=== PATIENT | female | born 1945 | race Caucasian/White ===

== ENCOUNTER → 2016-03-11 | Outpatient (CLI) | payer MEDICARE, OTHER ==
--- NOTE | 2016-03-21 10:38 | SLEEPCENT ---
DATE OF STUDY: 03/12/2016 REFERRING PROVIDER: Dr. Richmond. INTERPRETATION: Nocturnal polysomnography was performed for evaluation of sleep apnea syndrome symptoms consisting of excessive daytime sleepiness, impaired cognition, insomnia, snoring, and observed apneas. She also has the comorbidity of hypertension. A total of 7 hours and 46 minutes of data was reviewed with 235 minutes of sleep identified. Sleep latency was prolonged at 60.5 minutes. Rapid eye movement (REM) latency was 154.5 minutes. No slow-wave sleep was identified. Sleep efficiency was decreased at 51.2%. Electrocardiogram (EKG) showed normal sinus rhythm with an average heart rate of 84 beats per minute. Speeding and slowing was noted surrounding some respiratory events. There were 155 respiratory events of 10 seconds in duration or longer for an apnea-hypopnea index (AHI) of 39.6. The events were predominantly obstructive apneas/hypopneas. There were several unscored events which would put this index slightly higher. Respiratory effort-related arousal (RERA) index was 1.8, giving a total respiratory disturbance index (RDI) of 41.4. Mean oxygen saturation for the study was 91% with a minimum recorded value of 76%. Arousal index was 20.4, with the majority of arousals breathing-related. Periodic limb movement index was 17.9. IMPRESSION: 1. Obstructive sleep apnea, severe. 2. Periodic limb movements, mild. RECOMMENDATIONS: Recommend returning to the sleep disorder center for determination of pressure therapy. Pending that intervention, alcohol and sedative usage should be avoided, and care should be taken when operating motor vehicles.
== END ==
LOC: M SLEEP 19:45
PROVIDERS: ATTEND Internal Medicine Pulmonary Disease
DX: G47.33 Obstructive sleep apnea (adult) (pediatric) (principal); G47.61 Periodic limb movement disorder

== ENCOUNTER → 2016-05-05 | Outpatient (CLI) | payer MEDICARE, OTHER | LOC: M SLEEP 20:15 | PROVIDERS: ATTEND Internal Medicine Pulmonary Disease | DX: G47.33 Obstructive sleep apnea (adult) (pediatric) (principal) ==

== ENCOUNTER 2016-12-14 06:45 | Outpatient (CLI) | payer OTHER ==
[~2016-12-14] VITALS: Ht 154.9 cm; Wt 87.3 kg
[~2016-12-14 06:45] MED LIST: ADVA115A INH; ALBU17IN INH; ATOR1TAB21 PO; AZEL0.055; FLUT1SPR2; FURO20TA2 PO; IRBE150T12 PO; LEXA5TAB13 PO; OMEP40CA2 PO; PANT40TA2 PO; TYLE500T78 PO; VITA100067 PO
[2016-12-14] MEDS ORDERED: NS 1,000 ML IV ONE (07:45)
[2016-12-14] MEDS ORDERED: PROPOFOL 200 MG/20 ML VIAL As Ordered ONE (08:40)
[2016-12-14] MEDS ORDERED: LIDOCAINE 2% INJ 100 MG/5 ML SDV (FOR ANES.) As Ordered ONE (08:40)
--- NOTE | 2016-12-14 08:41 | ROOR ---
Patient Name: Monisha Pereira Procedure Date: 12/14/2016 8:06 AM Date of : 1945 Age: 71 Room: [facility] Gender: Female Note Status: Finalized Procedure: Upper GI endoscopy Indications: Follow-up of esophageal reflux, Exclusion of Lee's esophagus Providers: Curly Zavala MD Referring MD: Mehran Richmond MD Requesting Provider: Medicines: Monitored Anesthesia Care Complications: No immediate complications. Procedure: Pre-Anesthesia Assessment: - Prior to the procedure, a History and Physical was performed, and patient medications and allergies were reviewed. The patient is competent. The risks and benefits of the procedure and the sedation options and risks were discussed with the patient. All questions were answered and informed consent was obtained. Patient identification and proposed procedure were verified by the physician, the nurse and the motor builder assembler in the procedure room. Mental Status Examination: alert and oriented. Airway Examination: normal oropharyngeal airway and neck mobility. Respiratory Examination: clear to auscultation. CV Examination: normal. Prophylactic Antibiotics: The patient does not require prophylactic antibiotics. Prior Anticoagulants: The patient has taken no previous anticoagulant or antiplatelet agents. ASA Grade Assessment: III - A patient with severe systemic disease. After reviewing the risks and benefits, the patient was deemed in satisfactory condition to undergo the procedure. The anesthesia plan was to use monitored anesthesia care (MAC). Immediately prior to administration of medications, the patient was re-assessed for adequacy to receive sedatives. The heart rate, respiratory rate, oxygen saturations, blood pressure, adequacy of pulmonary ventilation, and response to care were monitored throughout the procedure. The physical status of the patient was re-assessed after the procedure. The Endoscope was introduced through the mouth, and advanced to the second part of duodenum. The upper GI endoscopy was accomplished without difficulty. The patient tolerated the procedure well. Findings: LA Grade B (one or more mucosal breaks greater than 5 mm, not extending between the tops of two mucosal folds) esophagitis with no bleeding was found 31 to 32 cm from the incisors. Biopsies were taken with a cold forceps for histology. Verification of patient identification for the specimen was done by the physician and nurse using the patient's name, date and medical record number. Estimated blood loss was minimal. The Z-line was irregular and was found 32 cm from the incisors. A large hiatal hernia was present. Striped moderately erythematous mucosa without bleeding was found in the gastric antrum. Biopsies were taken with a cold forceps for Helicobacter pylori testing. The duodenal bulb and second portion of the duodenum were normal. Impression: - LA Grade B reflux esophagitis. Rule out Lee's esophagus. Biopsied. - Z-line irregular, 32 cm from the incisors. Also noted inlet patch in upper esophagus. - Large hiatal hernia. - Erythematous mucosa in the antrum. Biopsied. - Normal duodenal bulb and second portion of the duodenum. Recommendation: - Patient has a contact number available for emergencies. The signs and symptoms of potential delayed complications were discussed with the patient. Return to normal activities tomorrow. Written discharge instructions were provided to the patient. - Resume previous diet. - Continue present medications. - Follow an antireflux regimen. - Await pathology results. - Repeat upper endoscopy after studies are complete for surveillance based on pathology results. - Return to GI clinic as previously scheduled on 12/21/2016 at 1:30 PM. - Return to primary care physician. Curly Zavala MD Curly Zavala MD 12/14/2016 8:40:56 AM This report has been signed electronically. Number of Addenda: 0 Note Initiated On: 12/14/2016 8:06 AM Estimated Blood Loss: Estimated blood loss was minimal.
[2016-12-14 09:00] VITALS: BP 142/77
== END 2016-12-14 09:02 | disposition home or self-care (01) ==
LOC: M OPP 06:45
PROVIDERS: ATTEND Internal Medicine Gastroenterology
DX: K21.0 Gastro-esophageal reflux disease with esophagitis (principal); K22.8 Other specified diseases of esophagus; K44.9 Diaphragmatic hernia without obstruction or gangrene; K31.89 Other diseases of stomach and duodenum; I10 Essential (primary) hypertension; E78.5 Hyperlipidemia, unspecified; R01.1 Cardiac murmur, unspecified; E04.1 Nontoxic single thyroid nodule; R12 Heartburn; K22.70 Barrett's esophagus without dysplasia; M19.90 Unspecified osteoarthritis, unspecified site; M54.89 Other dorsalgia; F03.90 Unspecified dementia, unspecified severity, without behavioral disturbance, psychotic disturbance, mood disturbance, and anxiety; G47.30 Sleep apnea, unspecified; R06.83 Snoring; R06.02 Shortness of breath; Z96.641 Presence of right artificial hip joint; Z88.8 Allergy status to other drugs, medicaments and biological substances; Z88.5 Allergy status to narcotic agent; Z79.899 Other long term (current) drug therapy

== ENCOUNTER → 2017-04-17 | Outpatient (REF) | payer MEDICARE ==
[2017-04-17 17:07] LABS: HEMOGLOBIN 12.1 g/dl (12.0-16.0); MEAN CORPUSCULAR HEMOGLOBIN 29.8 pg (27.0-33.0); MEAN CORPUSCULAR HGB CONC 32.7 g/dl (32.0-36.5); MEAN CORPUSCULAR VOLUME 91.1 fl (80.0-96.0); PLATELET COUNT, AUTOMATED 305 10^3/uL (150-450); RED BLOOD COUNT 4.06 10^6/uL (4.00-5.40); RED CELL DISTRIBUTION WIDTH 13.2 % (11.5-14.5)
[2017-04-17 17:56] LABS: ALBUMIN/GLOBULIN RATIO 0.95 (1.00-1.93); ALKALINE PHOSPHATASE 81 U/L (45-117); ALT/SGPT 19 U/L (12-78); ANION GAP 10 MEQ/L (8-16); AST/SGOT 16 U/L (7-37); BILIRUBIN,TOTAL 0.3 MG/DL (0.2-1.0); BLOOD UREA NITROGEN 11 MG/DL (7-18); CALCIUM LEVEL 9.9 MG/DL (8.8-10.2); CARBON DIOXIDE LEVEL 29 MEQ/L (21-32); CHLORIDE LEVEL 98 MEQ/L (98-107); CHOLESTEROL LEVEL 189 MG/DL (<200); CREATININE FOR GFR 0.76 MG/DL (0.55-1.30); GLOMERULAR FILTRATION RATE > 60.0 (>39); GLUCOSE, FASTING 92 MG/DL (70-100); HDL CHOLESTEROL 45 MG/DL (>40); LDL CHOLESTEROL 102.6 MG/DL (<100); NON-HDL-C 144 MG/DL; POTASSIUM SERUM 4.7 MEQ/L (3.5-5.1); SODIUM LEVEL 137 MEQ/L (136-145); TOTAL PROTEIN 8.2 GM/DL (6.4-8.2); TRIGLYCERIDES LEVEL 207 MG/DL (<150)
[2017-04-17 18:15] LABS: CREATININE, URINE 18.9 MG/DL; MALB URINE SIEMENS 7.6 MG/L; MAU/CREAT RATIO 40.2 MCG/MG (0.0-30.0)
[2017-04-17 18:27] LABS: ESTIMATED AVERAGE GLUCOSE 128 MG/DL (60-110); HEMOGLOBIN A1c 6.1 %
== END ==
LOC: M SFHCLERA 09:44
DX: I10 Essential (primary) hypertension (principal); Z79.899 Other long term (current) drug therapy
CPT/HCPCS: 84443

== ENCOUNTER → 2017-12-11 | Outpatient (CLI) | payer MEDICARE | LOC: M WHC 07:52 | DX: Z12.31 Encounter for screening mammogram for malignant neoplasm of breast (principal) | CPT/HCPCS: 77067 ==

== ENCOUNTER → 2018-01-09 | Outpatient (CLI) | payer MEDICARE ==
[2018-01-09 15:57] LABS: BASO # 0.1 10^3/uL (0.0-0.2); BASO % 0.7 % (0.0-1.0); EOS # 0.3 10^3/uL (0.0-0.50); EOS % 3.8 % (0.0-3.0); HEMATOCRIT 35.3 % (36.0-47.0); HEMOGLOBIN 11.7 g/dl (12.0-15.5); IMMATURE GRANULOCYTE % 0.3 % (0-3.0); LYMPH # 1.3 10^3/uL (1.5-4.5); LYMPH % 14.3 % (24.0-44.0); MEAN CORPUSCULAR HEMOGLOBIN 30.2 pg (27.0-33.0); MEAN CORPUSCULAR HGB CONC 33.1 g/dl (32.0-36.5); MEAN CORPUSCULAR VOLUME 91.2 fl (80.0-96.0); MONO # 0.9 10^3/uL (0.0-0.8); MONO % 10.5 % (0.0-5.0); NEUTROPHILS # 6.3 10^3/uL (1.8-7.7); NEUTROPHILS % 70.4 % (36.0-66.0); PLATELET COUNT, AUTOMATED 264 10^3/uL (150-450); RED BLOOD COUNT 3.87 10^6/uL (4.00-5.40); RED CELL DISTRIBUTION WIDTH 12.9 % (11.5-14.5)
[2018-01-09 16:40] LABS: ALBUMIN 3.7 GM/DL (3.2-5.2); ALBUMIN/GLOBULIN RATIO 1.03 (1.00-1.93); ALKALINE PHOSPHATASE 86 U/L (45-117); ALT/SGPT 20 U/L (12-78); ANION GAP 7 MEQ/L (8-16); AST/SGOT 14 U/L (7-37); BILIRUBIN,TOTAL 0.3 MG/DL (0.2-1.0); BLOOD UREA NITROGEN 13 MG/DL (7-18); CALCIUM LEVEL 9.2 MG/DL (8.8-10.2); CARBON DIOXIDE LEVEL 29 MEQ/L (21-32); CHLORIDE LEVEL 98 MEQ/L (98-107); CREATININE FOR GFR 0.82 MG/DL (0.55-1.30); FREE T4 0.87 NG/DL (0.76-1.46); GLOMERULAR FILTRATION RATE > 60.0 (>39); GLUCOSE, FASTING 104 MG/DL (70-100); POTASSIUM SERUM 3.9 MEQ/L (3.5-5.1); RHEUMATOID FACTOR QUANT < 10.0 IU/ML (<15.0); SODIUM LEVEL 134 MEQ/L (136-145); TOTAL PROTEIN 7.3 GM/DL (6.4-8.2)
[2018-01-09 16:41] LABS: FOLATE 7.1 NG/ML; VITAMIN B12 LEVEL 371 PG/ML
[2018-01-09 17:37] LABS: ERYTHROCYTE SEDIMENTATION RATE 52 mm/hr (0-30)
[2018-01-11 15:23] LABS: ANTINUCLEAR ANTIBODIES DIRECT Negative (Negative)
[2018-01-14 15:15] LABS: VITAMIN E(ALPHA TOCOPHEROL) 9.6 mg/L (9.0-29.0); VITAMIN E(GAMMA TOCOPHEROL) 2.3 mg/L (0.5-4.9)
== END ==
LOC: M LAB 15:22
DX: F03.90 Unspecified dementia, unspecified severity, without behavioral disturbance, psychotic disturbance, mood disturbance, and anxiety (principal); E07.9 Disorder of thyroid, unspecified
CPT/HCPCS: 82746

== ENCOUNTER 2018-01-14 09:18 | Day surgery (SDC) | payer MEDICARE ==
[2018-01-14] MEDS: NS 1,000 ML IV (07:00)
[2018-01-14] MEDS ORDERED: PROPOFOL 200 MG/20 ML VIAL As Ordered (09:27)
[2018-01-14] MEDS ORDERED: LIDOCAINE 2% INJ 100 MG/5 ML SDV (FOR ANES.) As Ordered (10:19)
[2018-01-14] MEDS ORDERED: fentaNYL 100 MCG/2 ML INJECTION (J3010) As Ordered (10:39)
== END 2018-01-14 11:36 | disposition home or self-care (01) ==
LOC: M OPP 09:18
DX: K22.70 Barrett's esophagus without dysplasia (principal); K44.9 Diaphragmatic hernia without obstruction or gangrene; K22.8 Other specified diseases of esophagus; K29.70 Gastritis, unspecified, without bleeding
CPT/HCPCS: 43239

== ENCOUNTER → 2018-06-25 | Outpatient (REF) | payer MEDICARE ==
[~2018-06-25] MED LIST changes: +DONETAB6 PO; +FLUTISP; -PANT40TA2 PO; +PANT40TA3 PO; +RANI150T PO; +VENTAER INH
[2018-06-25 12:16] LABS: ALBUMIN 3.7 GM/DL (3.2-5.2); ALT/SGPT 18 U/L (12-78); BILIRUBIN,TOTAL 0.4 MG/DL (0.2-1.0); BLOOD UREA NITROGEN 18 MG/DL (7-18); CALCIUM LEVEL 8.8 MG/DL (8.8-10.2); CARBON DIOXIDE LEVEL 25 MEQ/L (21-32); CHLORIDE LEVEL 103 MEQ/L (98-107); CHOLESTEROL LEVEL 155 MG/DL (<200); GLOMERULAR FILTRATION RATE > 60.0 (>39); GLUCOSE, FASTING 95 MG/DL (70-100); HDL CHOLESTEROL 41 MG/DL (>40); LDL CHOLESTEROL 82 MG/DL (<100); NON-HDL-C 114 MG/DL; POTASSIUM SERUM 4.6 MEQ/L (3.5-5.1); SODIUM LEVEL 137 MEQ/L (136-145); TOTAL PROTEIN 7.5 GM/DL (6.4-8.2); TRIGLYCERIDES LEVEL 159 MG/DL (<150)
[2018-06-25 12:34] LABS: HEMOGLOBIN A1c 6.1 %
== END ==
LOC: M SFHCLERA 09:14
PROVIDERS: ATTEND Family Medicine
DX: I10 Essential (primary) hypertension (principal); E78.5 Hyperlipidemia, unspecified

== ENCOUNTER 2018-09-14 18:48 | Emergency (ER) | payer MEDICARE ==
[~2018-09-14] VITALS: Ht 157.5 cm; Wt 90.9 kg
[2018-09-14] MEDS ORDERED: MEMA1TAB2 (18:56)
[2018-09-14] MEDS ORDERED: NS 1,000 ML IV ONE (19:45)
[2018-09-14 19:52] LABS: BASO # 0.1 10^3/uL (0.0-0.2); BASO % 0.4 % (0.0-1.0); EOS # 0.1 10^3/uL (0.0-0.50); EOS % 0.6 % (0.0-3.0); HEMATOCRIT 36.5 % (36.0-47.0); HEMOGLOBIN 12.1 g/dl (12.0-15.5); LYMPH # 1.1 10^3/uL (1.5-4.5); LYMPH % 8.2 % (24.0-44.0); MEAN CORPUSCULAR HEMOGLOBIN 30.7 pg (27.0-33.0); MEAN CORPUSCULAR HGB CONC 33.2 g/dl (32.0-36.5); MEAN CORPUSCULAR VOLUME 92.6 fl (80.0-96.0); MONO # 0.9 10^3/uL (0.0-0.8); MONO % 6.7 % (0.0-5.0); NEUTROPHILS # 11.2 10^3/uL (1.8-7.7); NEUTROPHILS % 83.7 % (36.0-66.0); PLATELET COUNT, AUTOMATED 271 10^3/uL (150-450); RED BLOOD COUNT 3.94 10^6/uL (4.00-5.40); WHITE BLOOD COUNT 13.3 10^3/uL (4.0-10.0)
[2018-09-14 20:24] LABS: BLOOD UREA NITROGEN 15 MG/DL (7-18); CALCIUM LEVEL 8.9 MG/DL (8.8-10.2); CARBON DIOXIDE LEVEL 26 MEQ/L (21-32); CHLORIDE LEVEL 100 MEQ/L (98-107); CK-MB VALUE MASS 1.8 NG/ML (<3.6); CPK CREATINE PHOSPHOKINASE 165 U/L (26-192); CREATININE FOR GFR 0.92 MG/DL (0.55-1.30); GLOMERULAR FILTRATION RATE > 60.0 (>39); GLUCOSE, FASTING 101 MG/DL (70-100); MB/CK RELATIVE INDEX 1.09 (< OR =4); POTASSIUM SERUM 5.5 MEQ/L (3.5-5.1); SODIUM LEVEL 132 MEQ/L (136-145); TROPONIN I < 0.02 NG/ML (< 0.10)
[2018-09-14 22:16] VITALS: BP 139/65
--- NOTE | 2018-09-15 20:39 | ECGEPIP ---
[facility] - ED Test Date: 2018-09-14 Pat Name: DENI AGUILAR Department: Room: - Gender: Female Technical Professional: virgil : 1945 Requested By: BERTRAM Gil Order Number: [id number] Reading MD: Quinn Alanis Measurements Intervals [place] Rate: 79 P: 33 ME: 158 QRS: QRSD: 105 T: 16 QT: 405 QTc: 465 Interpretive Statements SINUS RHYTHM MARKED LEFT AXIS DEVIATION Baseline artifact Electronically Signed on 09-15-2018 20:39:09 EDT by Quinn Alanis
== END 2018-09-14 23:06 | disposition home or self-care (01) ==
LOC: M ED 18:48
DX: T46.6X1A Poisoning by antihyperlipidemic and antiarteriosclerotic drugs, accidental (unintentional), initial encounter (principal); T40.4X1A Poisoning by other synthetic narcotics, accidental (unintentional), initial encounter; X58.XXXA Exposure to other specified factors, initial encounter; Y92.098 Other place in other non-institutional residence as the place of occurrence of the external cause; R11.10 Vomiting, unspecified; E86.0 Dehydration; R42 Dizziness and giddiness; I10 Essential (primary) hypertension; J44.9 Chronic obstructive pulmonary disease, unspecified; G30.9 Alzheimer's disease, unspecified; F02.80 Dementia in other diseases classified elsewhere, unspecified severity, without behavioral disturbance, psychotic disturbance, mood disturbance, and anxiety; Z88.5 Allergy status to narcotic agent; Z79.899 Other long term (current) drug therapy

== ENCOUNTER → 2018-09-17 | Outpatient (REF) | payer MEDICARE ==
[~2018-09-17] MED LIST changes: +MEMA1TAB2
== END ==
LOC: M SFHCLERA 09:20
PROVIDERS: ATTEND Family Medicine
DX: I10 Essential (primary) hypertension (principal); Z53.8 Procedure and treatment not carried out for other reasons

== ENCOUNTER → 2018-09-19 | Outpatient (REF) | payer MEDICARE ==
[2018-09-19 17:21] LABS: BLOOD UREA NITROGEN 19 MG/DL (7-18); CARBON DIOXIDE LEVEL 29 MEQ/L (21-32); CHLORIDE LEVEL 102 MEQ/L (98-107); CREATININE FOR GFR 0.85 MG/DL (0.55-1.30); GLOMERULAR FILTRATION RATE > 60.0 (>39); GLUCOSE, FASTING 100 MG/DL (70-100); POTASSIUM SERUM 4.3 MEQ/L (3.5-5.1); SODIUM LEVEL 137 MEQ/L (136-145)
== END ==
LOC: M SFHCLERA 10:33
PROVIDERS: ATTEND Family Medicine
DX: I10 Essential (primary) hypertension (principal)

== ENCOUNTER 2018-11-12 14:45 | Emergency (ER) | payer MEDICARE ==
[~2018-11-12] VITALS: Ht 154.9 cm; Wt 89.1 kg
[2018-11-12] MEDS ORDERED: ONDA4TAB6 (14:58)
[2018-11-12] MEDS ORDERED: DICL1GEL3 (14:58)
[2018-11-12] MEDS ORDERED: AMLO5TAB6 (14:58)
[2018-11-12 16:53] LABS: BASO # 0.1 10^3/uL (0.0-0.2); BASO % 0.8 % (0.0-1.0); EOS # 0.1 10^3/uL (0.0-0.5); EOS % 0.8 % (0.0-3.0); HEMATOCRIT 36.2 % (36.0-47.0); HEMOGLOBIN 12.1 g/dl (12.0-15.5); LYMPH % 10.5 % (24.0-44.0); MEAN CORPUSCULAR HEMOGLOBIN 30.9 pg (27.0-33.0); MEAN CORPUSCULAR HGB CONC 33.4 g/dl (32.0-36.5); MEAN CORPUSCULAR VOLUME 92.6 fl (80.0-96.0); MONO # 0.8 10^3/uL (0.0-0.8); MONO % 7.7 % (0.0-5.0); NEUTROPHILS # 7.8 10^3/uL (1.5-8.5); NEUTROPHILS % 79.7 % (36.0-66.0); PLATELET COUNT, AUTOMATED 314 10^3/uL (150-450); RED BLOOD COUNT 3.91 10^6/uL (4.00-5.40); WHITE BLOOD COUNT 9.8 10^3/uL (4.0-10.0)
[2018-11-12 16:56] LABS: ALBUMIN 3.9 GM/DL (3.2-5.2); ALT/SGPT 17 U/L (12-78); BILIRUBIN,TOTAL 0.3 MG/DL (0.2-1.0); BLOOD UREA NITROGEN 10 MG/DL (7-18); CALCIUM LEVEL 9.5 MG/DL (8.8-10.2); CARBON DIOXIDE LEVEL 29 MEQ/L (21-32); CHLORIDE LEVEL 99 MEQ/L (98-107); CREATININE FOR GFR 0.77 MG/DL (0.55-1.30); GLOMERULAR FILTRATION RATE > 60.0 (>39); GLUCOSE, FASTING 103 MG/DL (70-100); POTASSIUM SERUM 4.1 MEQ/L (3.5-5.1); SODIUM LEVEL 136 MEQ/L (136-145); TOTAL PROTEIN 7.7 GM/DL (6.4-8.2)
[2018-11-12] MEDS ORDERED: MECLIZINE 25 MG TABLET PO ONE (17:30)
--- NOTE | 2018-11-12 17:46 | REPVR ---
EXAM: CT Head Without Contrast EXAM DATE/TIME: 11/12/2018 5:26 PM CLINICAL HISTORY: 73 years old, female; Pain; Headache; Additional info: Dizziness TECHNIQUE: Imaging protocol: Computed tomography of the head without contrast. Radiation optimization: All CT scans at this facility use at least one of these dose optimization techniques: automated exposure control; mA and/or kV adjustment per patient size (includes targeted exams where dose is matched to clinical indication); or iterative reconstruction. COMPARISON: Thyroid, ST head+neck US 11/29/2015 4:33 PM FINDINGS: Brain: There is no evidence of intracranial bleed. There is patchy low density in the periventricular white matter/centrum semiovale consistent with chronic ischemic changes. There is no evidence of mass effect. Ventricles: Normal appearing ventricles. Bones/joints: There is no evidence of fracture. Sinuses: Clear paranasal sinuses. Mastoid air cells: There is opacification of the mastoid air cells on the right consistent with changes of mastoiditis. There is evidence of inflammation in the region of the right middle ear canal. IMPRESSION: 1. There is opacification of the mastoid air cells on the right consistent with changes of mastoiditis. Some inflammation and fluid in the right middle ear canal as well. 2. Chronic ischemic changes noted. Electronically signed by: Tonny Jason On 11/12/2018 17:45:28 PM
[2018-11-12] MEDS ORDERED: FLON1SPR NARES (18:46)
[2018-11-12] MEDS ORDERED: MECL-68 PO (18:46)
[2018-11-12] MEDS ORDERED: AUGM875T28 PO (18:46)
[2018-11-12 18:54] VITALS: BP 144/79
--- NOTE | 2018-11-13 07:28 | ECGEPIP ---
[facility] - ED Test Date: 2018-11-12 Pat Name: DENI AGUILAR Department: Room: - Gender: Female Plastic Molding Operator: JDorene : 1945 Requested By: ALON PEREIRA Order Number: [id number] Reading MD: Sylvia Leblanc Measurements Intervals [place] Rate: 82 P: -46 [place]: 160 QRS: -38 QRSD: 101 T: -4 QT: 398 QTc: 466 Interpretive Statements SINUS RHYTHM MARKED LEFT AXIS DEVIATION MINIMAL VOLTAGE CRITERIA FOR LVH, CONSIDER NORMAL VARIANT SIMILAR 09/14/18 Electronically Signed on 11-13-2018 7:28:09 EDT by Sylvia Leblanc
== END 2018-11-12 18:55 | disposition home or self-care (01) ==
LOC: M ED 14:45
DX: H70.001 Acute mastoiditis without complications, right ear (principal); H65.02 Acute serous otitis media, left ear; H81.49 Vertigo of central origin, unspecified ear; E78.5 Hyperlipidemia, unspecified; I10 Essential (primary) hypertension; J44.9 Chronic obstructive pulmonary disease, unspecified; K21.9 Gastro-esophageal reflux disease without esophagitis; Z79.899 Other long term (current) drug therapy; Z79.51 Long term (current) use of inhaled steroids; Z88.5 Allergy status to narcotic agent

== ENCOUNTER → 2018-11-18 | Outpatient (CLI) | payer MEDICARE ==
[~2018-11-18] MED LIST changes: +AMLO5TAB6; +AUGM875T28 PO; +DICL1GEL3; +FLON1SPR NARES; +MECL-68 PO; +ONDA4TAB6
--- NOTE | 2018-11-19 02:59 | REP ---
Clinical: Right hip pain. Technique: Frontal view of the pelvis with neutral and frog lateral views of the right and left hip. Findings: Evidence for right hip replacement which appears to be within normal limits. Mild degenerative changes to the left hip include subtle spurring along the lateral acetabular margin and enthesopathy along the femoral trochanter. Impression: Mild degenerative changes to the left hip. Electronically Signed by Toro Turk MD 11/19/2018 02:51 A
== END ==
LOC: M RAD 09:32
PROVIDERS: ATTEND Physical Medicine & Rehabilitation
DX: M70.61 Trochanteric bursitis, right hip (principal); M25.551 Pain in right hip; G62.9 Polyneuropathy, unspecified

== ENCOUNTER 2018-12-09 08:43 | Inpatient (IN) | payer MEDICARE ==
[~2018-12-09] VITALS: Ht 154.9 cm; Wt 89.5 kg
[2018-12-09] MEDS ORDERED: NS 500 ML IV ONE (09:30)
[2018-12-09] MEDS ORDERED: ONDANSETRON 4MG/2ML VIAL (J2405) IV ONE (09:30)
[2018-12-09] MEDS ORDERED: MECLIZINE 25 MG TABLET PO ONE (10:15)
[2018-12-09 10:24] LABS: BASO # 0.1 10^3/uL (0.0-0.2); BASO % 0.4 % (0.0-1.0); EOS # 0.1 10^3/uL (0.0-0.5); EOS % 1.1 % (0.0-3.0); HEMATOCRIT 34.2 % (36.0-47.0); HEMOGLOBIN 10.9 g/dl (12.0-15.5); LYMPH # 0.7 10^3/uL (1.5-5.0); LYMPH % 5.8 % (24.0-44.0); MEAN CORPUSCULAR HEMOGLOBIN 29.6 pg (27.0-33.0); MEAN CORPUSCULAR HGB CONC 31.9 g/dl (32.0-36.5); MEAN CORPUSCULAR VOLUME 92.9 fl (80.0-96.0); MONO # 0.9 10^3/uL (0.0-0.8); MONO % 7.9 % (0.0-5.0); NEUTROPHILS # 9.8 10^3/uL (1.5-8.5); NEUTROPHILS % 83.9 % (36.0-66.0); PLATELET COUNT, AUTOMATED 282 10^3/uL (150-450); RED BLOOD COUNT 3.68 10^6/uL (4.00-5.40); WHITE BLOOD COUNT 11.7 10^3/uL (4.0-10.0)
--- NOTE | 2018-12-09 10:25 | REP ---
Chest x-ray: Two views. History: Abdominal pain. Comparison chest x-ray June 29, 2005. Findings: EKG monitoring electrodes are seen. The lungs are symmetrically aerated and clear. Heart is not enlarged. The aorta somewhat tortuous. Pulmonary vasculature is not increased. Pleural angles are sharp. Impression: No active disease. Electronically Signed by Stephen Ramos MD 12/09/2018 10:16 A
[2018-12-09] MEDS ORDERED: CELE1CAP9 PO (10:38)
[2018-12-09] MEDS ORDERED: ESCI5SOL3 PO (10:38)
[2018-12-09 10:56] LABS: ALBUMIN 3.4 GM/DL (3.2-5.2); ALT/SGPT 21 U/L (12-78); BILIRUBIN,DIRECT 0.1 MG/DL (0.0-0.2); BILIRUBIN,TOTAL 0.4 MG/DL (0.2-1.0); BLOOD UREA NITROGEN 15 MG/DL (7-18); CALCIUM LEVEL 8.4 MG/DL (8.8-10.2); CARBON DIOXIDE LEVEL 26 MEQ/L (21-32); CHLORIDE LEVEL 102 MEQ/L (98-107); CPK CREATINE PHOSPHOKINASE 70 U/L (26-192); CREATININE FOR GFR 0.84 MG/DL (0.55-1.30); GLOMERULAR FILTRATION RATE > 60.0 (>39); GLUCOSE, FASTING 127 MG/DL (70-100); LIPASE 125 U/L (73-393); MB/CK RELATIVE INDEX 1.43 (< OR =4); POTASSIUM SERUM 3.4 MEQ/L (3.5-5.1); SODIUM LEVEL 139 MEQ/L (136-145); TOTAL PROTEIN 7.3 GM/DL (6.4-8.2); TROPONIN I < 0.02 NG/ML (< 0.10)
[2018-12-09 14:31] LABS: CK-MB VALUE MASS 1.2 NG/ML (<3.6); CPK CREATINE PHOSPHOKINASE 72 U/L (26-192); MB/CK RELATIVE INDEX 1.67 (< OR =4); TROPONIN I < 0.02 NG/ML (< 0.10)
[2018-12-09] MEDS ORDERED: DICL1GEL3 TOP (15:40)
[2018-12-09] MEDS ORDERED: FLON1SPR (15:40)
[2018-12-09] MEDS ORDERED: ACET-897 PO (15:40)
[2018-12-09] MEDS ORDERED: MECL-68 PO (15:40)
[2018-12-09] MEDS ORDERED: DONE10TA90 PO (15:40)
[2018-12-09] MEDS ORDERED: AMLO5TAB6 PO (15:40)
[2018-12-09] MEDS ORDERED: LEXA5TAB13 PO (15:40)
[2018-12-09] MEDS ORDERED: ADVA115A INH (15:40)
--- NOTE | 2018-12-09 15:52 | REP ---
CT of the brain without IV contrast: Comparison is 2018. There is no hemorrhage. There is no edema, mass effect or midline shift. The cortical stripe is unremarkable. There are lucencies within the subcortical white matter, nonspecific, but compatible with chronic microvascular ischemia, unchanged. Opacification of the right mastoid air cells is again noted, unchanged. There is faintly visible opacity in the right middle ear , possibly representing inflammation. This is similar to the prior study. The visualized paranasal sinuses are clear. Impression: No interval change. There is no hemorrhage, acute infarct or mass. There is persisting opacification of the right mastoid air cells. There is persisting opacity in the right middle ear. Electronically Signed by Edinson Wray MD 12/09/2018 03:43 P
[2018-12-09] MEDS ORDERED: POTASSIUM CHLORIDE 10 MEQ SR TABLET PO ONE (16:00)
[2018-12-09 16:15] LABS: LIPASE 96 U/L (73-393); MAGNESIUM LEVEL 1.9 MG/DL (1.8-2.4)
[2018-12-09] MEDS ORDERED: IBUPROFEN 600 MG TAB PO ONE (16:15)
[2018-12-09] MEDS ORDERED: ACETAMINOPHEN 500 MG TAB PO PRN (16:45)
[2018-12-09] MEDS ORDERED: FLUTICASONE PROP 0.05% NASAL SPRAY 16 GM (FLONASE) PRN (16:45)
[2018-12-09] MEDS ORDERED: ALBUTEROL 90 MCG/ACT 8GM HFA INHALER INH PRN (16:45)
--- NOTE | 2018-12-09 17:05 | REP ---
CAROTID ULTRASOUND: Real-time ultrasound evaluation and duplex Doppler interrogation of the extracranial carotid vasculature is performed. There is mild plaquing and narrowing in both carotid bulbs extending into the internal and external carotid arteries. Luminal narrowing is less than 50%. There is no evidence of hemodynamically significant stenosis of either internal carotid artery. Normal flow velocities are seen. The vertebral arteries demonstrate normal direction of flow. RIGHT LEFT Peak systolic velocity ICA 71.2 cm/s 58.4 cm/s End diastolic velocity ICA 16.1 cm/s 17.5 cm/s Peak systolic velocity CCA 88.2 cm/s 83.8 cm/s Peak systolic velocity ECA 64.8 cm/s 72.2 cm/s ICA/CCA ratio 0.81 0.7 IMPRESSION: Bilateral luminal narrowing of the internal carotid arteries less than 50%. No evidence of hemodynamically significant stenosis. Electronically Signed by Edinson Easton MD 12/09/2018 04:57 P
--- NOTE | 2018-12-09 17:32 | HPE ---
DATE OF ADMISSION: 12/09/2018 PRIMARY CARE PROVIDER: Dr. Burnett SCOW CAPTAIN: Dr. Zavala NEUROLOGIST: Dr. Stoner CHIEF COMPLAINT: Vomiting for 2 days, vertigo, and passing out. HISTORY OF PRESENT ILLNESS: This is a 73-year-old female with a history of chronic dementia and migraines, followed at [facility] per Dr. Stoner, hypertension, hypercholesterolemia, Lee's esophagus, obstructive sleep apnea, depression, vitamin D deficiency, and nonmalignant thyroid lesion, presents to the emergency room with a 2 day history of intractable vomiting. The patient had been vomiting yesterday, nonbilious, nonmucosy, nonprojectile but large amounts with emesis and bowel, according to the two times yesterday, she slept on the chair most of the day, she ate a half of a muffin in the morning, slept most of the day and only had a piece of chicken breast with small potatoes. She awoke this morning with decrease in appetite. On the way to physical therapy (PT), the daughter noted that the patient was nauseous, she vomited in the car and said that she just wanted to go home. When they went home, the patient vomited twice again. She was "white as a ghost." Since then, she has vomited about ten times. As she went from the car, got dizzy and went straight down and closed her eyes for about 2 seconds and then came around very quickly, recognized everyone around her. The patient otherwise has had no abdominal pain, diarrhea. No other family members have been afflicted with the nausea and vomiting at home. They have been making their own meals. The patient has not had any changes in medications. Today the daughter called 911 due to the patient falling down on the ground in front of the car as they were heading back to the house, about a block away. The patient had slight trouble breathing when she was vomiting. In the emergency room, presenting blood pressure was 160/70. The patient was placed on a stretcher and complained of right hip pain, at which point blood pressure shot up to 204/102. CT of the head was negative. There is persistent opacification of the right mastoid air cells and persisting opacity in the right middle ear. No hemorrhage, acute infarct or mass is noted. LABORATORY DATA: Had low potassium of 3.4, otherwise unremarkable, slight white count of 11.7, which is most likely reactive. Chest x-ray due to complaints of shortness of breath showed no acute disease. Electrocardiogram (EKG) with sinus rhythm without acute ST-T wave changes. The hospitalist was called to admit for vasovagal syncope and persistent vertigo with vomiting. Lipase level, AST and ALT were within normal. PAST MEDICAL HISTORY: 1. Lee's esophagus. 2. Vitamin D deficiency. 3. Dyslipidemia. 4. Hypertension. 5. Obstructive sleep apnea. 6. Dementia. 7. Migraines. 8. Depression. 9. Carotid artery stenosis, less than 50% stenosis. ALLERGIES: CODEINE, passing out. TRAMADOL, dizziness and vomiting. PAST SURGICAL HISTORY: 1. Dilatation and curettage. 2. Endoscopy in 01/2018. 3. Bilateral carpal tunnel release. 4. Right hip replacement in 2013. 5. Bilateral bunionectomy. 6. Laparoscopy. HOME MEDICATIONS: - Norvasc 5 mg daily - Lasix 20 mg daily - Protonix 40 mg twice a day - ranitidine one tablet twice a day - Senokot 200 daily - diclofenac 4 grams topically every 12 hours as needed for pain - donepezil 10 mg daily - acetaminophen 1 gram by mouth three times a day as needed - albuterol four times a day - atorvastatin 20 mg at night - Lexapro 5 mg at night - fluticasone - Advair HFA two puffs twice a day - Flonase two sprays as needed - irbesartan 150 daily - meclizine 25 mg every 8 hours SOCIAL HISTORY: Lives with her at home. Daughter, who is the healthcare proxy, is 1 mile away. 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 Had secondhand smoking for about 50 years from the patient's brother and father, does not smoke herself. No alcohol use. The patient has mild dementia, cared for by the at home. FAMILY HISTORY: Father at age 65 of heart disease, chronic obstructive pulmonary disease (COPD), diagnosed with hypertension. Mother with heart disease, hypertension, chronic obstructive pulmonary disease (COPD), and stroke. One brother and one sister, two sons, one daughter -- all are healthy. Brother with heart problems, had been a smoker. One son about 8 years ago from hepatitis. REVIEW OF SYSTEMS: As per history of present illness. 12-point system otherwise negative. PHYSICAL EXAMINATION: Temperature 96.1, pulse 76, respiratory rate 18, blood pressure 160/70, 95% on room air. GENERAL: The patient is awake, alert and oriented to herself. She is answering questions appropriately but disoriented to time. No respiratory distress. Face is symmetric. No slurring of speech. No conversational dyspnea. Anicteric sclerae. No jaundice. Pupils are round and reactive. Extraocular muscles are intact. Tongue is midline. No facial asymmetry. No dysmetria on finger to nose testing. NECK: Supple. Full range of motion. Slight thyroid enlargement. No cervical lymphadenopathy or thyromegaly. No jugular venous distention (JVD). LUNGS: Clear to auscultation. No wheezing, rales or rhonchi. Air entry is equal bilaterally. HEART: S1, S2. Sinus rhythm. Systolic ejection murmur at the apex radiating to the carotids. No rubs or gallops. ABDOMEN: Obese, soft, nontender, nondistended. Positive bowel sounds. EXTREMITIES: No cyanosis, clubbing or any pitting edema. NEUROLOGIC: Awake, alert, oriented to person only. She is pleasant and follows commands. No dysmetria on finger to nose testing. Face is symmetric. Speech is fluent. The patient is disoriented to time. Tongue is midline. Negative Babinski bilaterally with downgoing toes. Motor function is 5/5 times four extremities. No sensory disturbance. Deep tendon reflexes are intact, 1+ bilaterally. EKG showed sinus rhythm, possible anterior infarct, age undetermined. LABORATORY DATA: White count 11, hemoglobin 10.9, hematocrit 34, platelet count 282. Sodium 139, potassium 3.4, chloride 102, bicarbonate 26, BUN 15, creatinine 0.84, glucose 127, calcium 8.4, magnesium 1.9, total bilirubin 0.4, direct bilirubin 0.1, AST 22, ALT 21, alkaline phosphatase 91, total CK 70, MB fraction 1, troponin less than 0.02, total protein 7.3, albumin 3.4, lipase 125 to 126. Urine is negative leukocyte esterase, 1 WBC, 1+ bacteria. IMAGING STUDIES: CT of the head showed no interval change. No hemorrhage, acute infarct or mass, persisting opacification of right mastoid air cell, persisting opacity of right middle ear. Chest x-ray showed no acute cardiopulmonary process. ASSESSMENT AND PLAN: This is a 73-year-old female with a history of mild dementia, followed by Dr. Stoner in the office, migraine headaches, dyslipidemia, hypertension, vitamin D deficiency, Lee's esophagus, obstructive sleep apnea, dementia, depression, nonmalignant thyroid nodule, which was biopsied, carotid artery stenosis less than 50%, who presented to the emergency room with a 2 day history of intractable vomiting and vasovagal syncope with passing out for 2 seconds after vomiting. The patient is admitted for two midnights as an inpatient for the following issues: 1. Vasovagal syncope, presyncopal episode happening after the patient had three episodes of emesis witnessed by the patient's daughter. The patient will be admitted to telemetry unit. Cardiac markers will be cycled. 2-D echo has been ordered. The patient has a known history of carotid artery stenosis with less than 50% blockages. 2. Intractable vomiting in the setting of chronic Lee's esophagus. Per Dr. Zavala, he recommends high dose of Protonix twice a day, nothing by mouth status and antiemetics. Possible gastroenteritis. Followup in the office after hospital discharge, no need for repeat esophagogastroduodenoscopy (EGD) or upper GI series at this time. We will obtain abdominal x-ray to rule out ileus and partial bowel obstruction. 3. Hypokalemia, low potassium level due to recurrent episodes of vomiting. 4. Carotid artery stenosis with episodes of syncope. We will obtain repeat carotid Dopplers and MRI of the brain to rule out cerebellar CVA. 5. Chronic vertigo. On meclizine every [address] Stoner, it is reasonable to obtain a MRI of the brain without contrast in order to evaluate for cerebellar lesion, carotid Dopplers can be repeated. 6. Obstructive sleep apnea. Continue on home settings of CPAP. 7. Uncontrolled hypertension. Continue on home medications with holding parameters. Check blood pressure every 4 hours. 8. Dementia. Continue on Aricept. Continue on telemetry to rule out sinus pauses or heart block due to Aricept as cause of possible syncopal episodes. 9. Deep vein thrombosis (DVT) prophylaxis with compression stockings due to risk of falls and increased risk of intracranial bleed. Assisted ambulation only. Physical therapy (PT) has been consulted. MTDD
[2018-12-09] MEDS: amLODIPine 5 MG TAB PO SCH (17:52)
[2018-12-09 18:00] VITALS: BP 165/78
--- NOTE | 2018-12-09 18:13 | REP ---
HISTORY: Pain after trauma. There is a comparison AP pelvis and bilateral hips of 11/18/2018. AP PELVIS: There is no change from the prior exam. Right hip prosthesis noted, status quo. Degenerative sacroiliac joints, status quo. Chronic changes left hip, status quo. No acute abnormality. RIGHT HIP: Two views of the right hip compared to the prior exam. The femoral and acetabular components of the right hip prosthesis are unchanged. There is no acute fracture, dislocation or subluxation. LEFT HIP: AP and lateral views of the left hip. COMPARISON: 11/18/2018. Chronic degenerative changes are present, status quo. There is no acute fracture, dislocation, or subluxation. Electronically Signed by Fermín Clay DO 12/09/2018 06:34 P
--- NOTE | 2018-12-09 18:24 | REP ---
HISTORY: Intractable vomiting. COMPARISON: None. FINDINGS: KUB shows the intestinal gas pattern to be nonspecific. The organ silhouettes insofar as delineated are unremarkable. There is no evidence of free intraperitoneal air. IMPRESSION: Nonspecific. Electronically Signed by Fermín Clay DO 12/09/2018 06:35 P
[2018-12-09 20:00] VITALS: BP 150/74
--- NOTE | 2018-12-09 20:04 | REPVR ---
PROCEDURE INFORMATION: Exam: MR Head Without Contrast Exam date and time: 12/09/2018 7:31 PM Clinical history: 73 years old, female; Dizziness and other: Vomiting; Additional info: Dizziness R/O cerebellar CVA TECHNIQUE: Imaging protocol: MR of the head without contrast. COMPARISON: MRI-Brain without Contrast 10/29/2017 9:12 AM FINDINGS: Brain: Multiple foci of T2 lengthening are demonstrated in the subcortical, periventricular, pontine, and centrum semiovale white matter consistent with age-related small vessel gliosis. Findings are stable. Minimal parenchymal volume loss consistent with patient age. Ventricles: The degree of ventricular dilatation is normal for age and/or degree of atrophy present. Bones/joints: Unremarkable. Soft tissues: Unremarkable. Sinuses: Normal as visualized. No acute sinusitis. Mastoid air cells: Fluid demonstrated in both mastoid sinuses consistent with mastoiditis. Fluid also demonstrated in the right middle ear cavity. Orbits: Unremarkable. IMPRESSION: 1. Multiple foci of T2 lengthening are demonstrated in the subcortical, periventricular, pontine, and centrum semiovale white matter consistent with age-related small vessel gliosis. Findings are stable. 2. The degree of ventricular dilatation is normal for age and/or degree of atrophy present. 3. Fluid demonstrated in both mastoid sinuses consistent with mastoiditis. Fluid also demonstrated in the right middle ear cavity. Electronically signed by: Ivan Camejo On 12/09/2018 20:04:54 PM
[2018-12-09] MEDS: ADVAIR HFA 115/21MCG INHALER INH SCH (20:18)
--- NOTE | 2018-12-09 20:36 | ECGEPIP ---
[facility] - ED Test Date: 2018-12-09 Pat Name: DENI AGUILAR Department: Room: - Gender: Female Clin Tech: sarahi : 1945 Requested By: ALON PEREIRA Order Number: [id number] Reading MD: Michele Eugene Measurements Intervals [place] Rate: 75 P: 41 NM: 156 QRS: -36 QRSD: 110 T: 10 QT: 421 QTc: 471 Interpretive Statements SINUS RHYTHM LEFT AXIS DEVIATION MINIMAL VOLTAGE CRITERIA FOR LVH, CONSIDER NORMAL VARIANT BENIGN EARLY REPOLARIZATION SIMILAR TO 11/12/18 Electronically Signed on 12-09-2018 20:35:46 EDT by Michele Eugene
[2018-12-09] MEDS: PANTOPRAZOLE 40MG INJ (PROTONIX) (C9113) IV SCH (20:37)
[2018-12-09] MEDS: MECLIZINE 25 MG TABLET PO SCH (20:39)
--- NOTE | 2018-12-09 20:39 | ECGEPIP ---
[facility] - ED Test Date: 2018-12-09 Pat Name: DENI AGUILAR Department: Room: - Gender: Female Carpenter Maintenance: sarahi : 1945 Requested By: ALON PEREIRA Order Number: [id number] Reading MD: Michele Eugene Measurements Intervals [place] Rate: 78 P: 39 [place]: 148 QRS: -40 QRSD: 112 T: 14 QT: 395 QTc: 451 Interpretive Statements SINUS RHYTHM LEFT AXIS DEVIATION POSSIBLE INCOMPLETE RIGHT BUNDLE BRANCH BLOCK BENIGN EARLY REPOLARIZATION SIMILAR TO PRIOR ON SAME DATE Electronically Signed on 12-09-2018 20:39:36 EDT by Michele Eugene
[2018-12-09] MEDS: IBUPROFEN 600 MG TAB PO SCH (20:40)
[2018-12-09] MEDS ORDERED: ATORVASTATIN 20 MG TAB PO SCH (21:00)
[2018-12-09] MEDS ORDERED: ESCITALOPRAM OXALATE 5MG TABLET (LEXAPRO) PO SCH (21:00)
--- NOTE | 2018-12-09 21:22 | ECHO ---
DATE OF PROCEDURE: 12/09/2018 REFERRING PHYSICIAN: Dr. Rodríguez INDICATION: Syncope Height 155 cm, weight 91 kg. DIMENSIONS: IVS: 1.3 LV: 4.0 LVPW: 1.3 LA: 4.2 Aorta: 3.1 IVC: 1.8 Mitral E wave velocity: 91 A wave: 99 E prime septal: 9.4 E prime lateral: 7.7 FINDINGS: The study is of fair technical quality corresponding to patient's body habitus. The patient is in sinus rhythm. Left ventricle is normal size. There is probably normal left ventricular (LV) systolic function based on somewhat limited visualization. Computer calculated left ventricular ejection fraction (LVEF) was 62%, but I am not certain that the endocardial resolution was accurate. Right ventricle appears normal. Left atrium is at least mildly enlarged. Right atrium was poorly seen but grossly appears normal. Aortic valve has three cusps. It is mildly sclerotic but mobility is preserved. There are also mild degenerative abnormalities of mitral valve with mitral annular calcifications at the base of posterior leaflet that is mild. Tricuspid valve appears normal. Pulmonic valve was not seen. No pericardial effusion is present. Inferior vena cava is of normal size. Aortic root, aortic arch and visualized segment of abdominal aorta all appear normal. Doppler interrogation of aortic valve reveals minimal insufficiency and also minimal stenosis, mean gradient across the valve was 10 mmHg. There is trace mitral and trace tricuspid insufficiency. Calculated pulmonary artery pressure is likely within normal limits. Mitral inflow pattern and tissue Doppler imaging of mitral annulus reveals grade 1 diastolic dysfunction. CONCLUSIONS: 1. Study is of fair technical quality. 2. Normal LV size with mild left ventricular hypertrophy (LVH) and probably normal LV systolic function. Grade 1 diastolic dysfunction. 3. Aortic sclerosis resulting in minimal stenosis and minimal insufficiency. 4. Trace mitral and tricuspid insufficiency. 5. Likely normal central venous pressure and normal pulmonary artery pressure. COMMENT: Subacute bacterial endocarditis (SBE) prophylaxis is not recommended. Study is consistent with mild form of hypertensive heart disease. No findings to provide obvious explanation for syncope.
[2018-12-09 23:59] VITALS: BP 140/72
[2018-12-10] VITALS: BP 154/78
[2018-12-10 00:03] VITALS: BP 158/82
[2018-12-10 04:00] VITALS: BP 141/73
[2018-12-10] MEDS: MECLIZINE 25 MG TABLET PO SCH ×2 (05:46→14:00)
[2018-12-10 05:56] LABS: HEMATOCRIT 30.5 % (36.0-47.0); HEMOGLOBIN 9.8 g/dl (12.0-15.5); MEAN CORPUSCULAR HEMOGLOBIN 29.8 pg (27.0-33.0); MEAN CORPUSCULAR HGB CONC 32.1 g/dl (32.0-36.5); MEAN CORPUSCULAR VOLUME 92.7 fl (80.0-96.0); PLATELET COUNT, AUTOMATED 255 10^3/uL (150-450); RED BLOOD COUNT 3.29 10^6/uL (4.00-5.40); WHITE BLOOD COUNT 6.3 10^3/uL (4.0-10.0)
[2018-12-10 06:24] LABS: BLOOD UREA NITROGEN 13 MG/DL (7-18); CALCIUM LEVEL 8.7 MG/DL (8.8-10.2); CARBON DIOXIDE LEVEL 29 MEQ/L (21-32); CHLORIDE LEVEL 106 MEQ/L (98-107); CREATININE FOR GFR 0.81 MG/DL (0.55-1.30); GLOMERULAR FILTRATION RATE > 60.0 (>39); GLUCOSE, FASTING 105 MG/DL (70-100); POTASSIUM SERUM 3.8 MEQ/L (3.5-5.1); SODIUM LEVEL 140 MEQ/L (136-145)
[2018-12-10] MEDS: ADVAIR HFA 115/21MCG INHALER INH SCH (07:17)
[2018-12-10 08:00] VITALS: BP 141/71
[2018-12-10] MEDS ORDERED: IRBESARTAN 150 MG TAB PO SCH (09:00)
[2018-12-10] MEDS ORDERED: DONEPEZIL 5 MG TAB PO SCH (09:00)
[2018-12-10] MEDS: amLODIPine 5 MG TAB PO SCH (09:31)
[2018-12-10] MEDS: PANTOPRAZOLE 40MG INJ (PROTONIX) (C9113) IV SCH (09:31)
[2018-12-10 09:32] VITALS: BP 141/71
[2018-12-10] MEDS: IBUPROFEN 600 MG TAB PO SCH (09:33)
[2018-12-10] MEDS ORDERED: SLF 3 ML SYR IV PRN (11:00)
[2018-12-10 12:00] VITALS: BP 134/65
[2018-12-10] MEDS ORDERED: MECL-68 PO (12:48)
[2018-12-10] MEDS ORDERED: SLF 3 ML SYR IV SCH (14:00)
--- NOTE | 2018-12-10 15:35 | DS.PDOC ---
Discharge Summary General Date of Admission Dec 09, 2018 at 15:17 Date of Discharge 12/10/2018 Attending Physician: PEGGY RIVERA MD Discharge Summary PROCEDURES PERFORMED DURING STAY: None. ADMITTING DIAGNOSES: 1. Vertigo. DISCHARGE DIAGNOSES: 1. Vertigo. COMPLICATIONS/CHIEF COMPLAINT: Vertigo, vomiting. HISTORY OF PRESENT ILLNESS: 73-year-old female with past medical history of dementia, migraines, vertigo, hypertension, hyperlipidemia, Lee's esophagus, obstructive sleep apnea, and depression was admitted for vertigo and vomiting. She has been dealing with vertigo in the outpatient setting, significantly improved with meclizine, no further episodes since admission, as per daughter they came to the hospital because she had a presyncopal episode associated with the vertigo and vomiting. Patient is currently asymptomatic, ambulated around the room, wishing to go home, denies any dizziness, headache, nausea, vomiting, diarrhea or constipation at this time. Patient will be discharged with a prescription for meclizine and outpatient follow-up with neurology, ENT and PCP. Patient and daughter are understanding and agreeable to discharge,. HOSPITAL COURSE: As above. DISCHARGE MEDICATIONS: Please see below. ALLERGIES: Please see below. PHYSICAL EXAMINATION ON DISCHARGE: VITAL SIGNS: Please see below. GENERAL: No distress HEENT: Normocephalic, atraumatic, moist mucous membranes NECK: Supple CARDIOVASCULAR EXAMINATION:. S1, S2 RESPIRATORY EXAMINATION: Clear to auscultation ABDOMINAL EXAMINATION:, Nontender, nondistended, positive bowel sounds EXTREMITIES: Range of Motion intact SKIN:. No rash NEUROLOGICAL EXAMINATION: No focal deficits PSYCHIATRIC EXAMINATION:, Calm LABORATORY DATA: Please see below. IMAGING: CT head without acute pathology PROGNOSIS: Fair ACTIVITY: As tolerated. DIET: Regular DISCHARGE PLAN: Patient is to follow up with ENT, neurology and PCP within 2 weeks DISPOSITION: . DISCHARGE INSTRUCTIONS: 1. As per above. DISCHARGE CONDITION: Stable. TIME SPENT ON DISCHARGE: Greater than 34 minutes. Vital Signs/I&Os Vital Signs Date Time Temp Pulse Resp B/P (MAP) Pulse Ox O2 Delivery O2 Flow Rate FiO2 12/10/18 12:00 97.0 84 18 134/65 (88) 93 12/09/18 13:45 Room Air I&O- Last 24 Hours up to 6 AM 12/10/18 06:00 Intake Total 500 ml Output Total 420 ml Balance 80 ml Laboratory Data Labs 24H Laboratory Tests 2 10/9/19 05:41: Nucleated Red Blood Cells % (auto) 0.0, Anion Gap 5L, Glomerular Filtration Rate > 60.0, Blood Urea Nitrogen 13, Creatinine 0.81, Sodium Level 140, Potassium Level 3.8, Chloride Level 106, Carbon Dioxide Level 29, Calcium Level 8.7L CBC/BMP Laboratory Tests 12/10/18 05:41 Red Blood Count 3.29 L, Mean Corpuscular Volume 92.7, Mean Corpuscular Hemoglobin 29.8, Mean Corpuscular Hemoglobin Concent 32.1, Red Cell Distribution Width 13.0, Calcium Level 8.7 L Discharge Medications Scheduled Amlodipine Besylate (Amlodipine Besylate) 5 Mg Tablet, 5 MG PO DAILY, (Reported) Atorvastatin Calcium (Atorvastatin Calcium) 20 Mg Tab, 20 MG PO QHS, (Reported) Celecoxib (Celecoxib) 200 Mg Capsule, 200 MG PO DAILY, (Reported) Donepezil HCl (Donepezil HCl) 10 Mg Tablet, 10 MG PO DAILY, (Reported) Escitalopram Oxalate (Lexapro) 5 Mg Tablet, 5 MG PO QHS, (Reported) Fluticasone Propion/Salmeterol (Advair Hfa 115-21 Mcg Inhaler) 12 Gm Hfa.aer.ad, 2 PUFF INH BID, (Reported) Furosemide (Furosemide) 20 Mg Tab, 20 MG PO DAILY, (Reported) Irbesartan (Irbesartan) 150 Mg Tab, 150 MG PO DAILY, (Reported) Pantoprazole Sodium (Pantoprazole Sodium) 40 Mg Tab, 40 MG PO BID, (Reported) Ranitidine HCl (Ranitidine HCl) 150 Mg Tab, 1 TAB PO BID, (Reported) Scheduled PRN Acetaminophen (Tylenol Extra Strength) 500 Mg Tablet, 1,000 MG PO TID PRN for PAIN, (Reported) Albuterol Sulfate (Ventolin Hfa) 108 Mcg/Act Aer, 2 SPRAY INH QID PRN for SOB/WHEEZING, (Reported) Diclofenac Sodium (Diclofenac Sodium) 1% 100GM Gel..gram., 4 GM TOP Q12H PRN for PAIN, (Reported) APPLY TO RIGHT HIP Fluticasone Propionate (Flonase Allergy Relief) 9.9 Ml Fowler.susp, 2 SPRAY NA DAILY PRN for ALLERGIES, (Reported) Meclizine HCl (Meclizine HCl) 25 Mg Tablet, 25 MG PO Q8H PRN for DIZZINESS Allergies Coded Allergies: codeine (Verified Adverse Reaction, Unknown, NAUSEA, 12/09/18) PEGGY RIVERA MD Dec 10, 2018 15:35
[2018-12-11] MEDS ORDERED: FLUBLOK(EGG FREE)(QUAD)INFLUENZA VACC 0.5ML SYRINGE (90682)18YRS&OLDER IM ONE (09:00)
== END 2018-12-10 15:00 | disposition home or self-care (01) | DRG 149 ==
LOC: EDBD 08:43 → M ED 08:43 → M ED INP 15:17 → M PCU 16:57
PROVIDERS: ADMIT General Practice; ATTEND Internal Medicine
DX: R42 Dizziness and giddiness (principal); F03.90 Unspecified dementia, unspecified severity, without behavioral disturbance, psychotic disturbance, mood disturbance, and anxiety; G43.909 Migraine, unspecified, not intractable, without status migrainosus; I10 Essential (primary) hypertension; E87.6 Hypokalemia; E78.00 Pure hypercholesterolemia, unspecified; K22.70 Barrett's esophagus without dysplasia; G47.33 Obstructive sleep apnea (adult) (pediatric); F32.9 Major depressive disorder, single episode, unspecified; E55.9 Vitamin D deficiency, unspecified; R55 Syncope and collapse; R11.2 Nausea with vomiting, unspecified; Z96.641 Presence of right artificial hip joint; Z79.899 Other long term (current) drug therapy

== ENCOUNTER → 2018-12-18 | Outpatient (REF) | payer MEDICARE ==
[~2018-12-18] MED LIST changes: +ACET-897 PO; +AMLO5TAB6 PO; +CELE1CAP9 PO; +DICL1GEL3 TOP; +DONE10TA90 PO; +ESCI5SOL3 PO; +FLON1SPR; -OMEP40CA2 PO; +OMEP40CA97 PO
[2018-12-18 12:07] LABS: BASO # 0.1 10^3/uL (0.0-0.2); BASO % 0.8 % (0.0-1.0); EOS # 0.4 10^3/uL (0.0-0.5); EOS % 3.6 % (0.0-3.0); HEMATOCRIT 36.3 % (36.0-47.0); HEMOGLOBIN 11.7 g/dl (12.0-15.5); LYMPH # 1.5 10^3/uL (1.5-5.0); LYMPH % 13.4 % (24.0-44.0); MEAN CORPUSCULAR HEMOGLOBIN 30.3 pg (27.0-33.0); MEAN CORPUSCULAR HGB CONC 32.2 g/dl (32.0-36.5); MONO % 9.4 % (0.0-5.0); NEUTROPHILS # 7.9 10^3/uL (1.5-8.5); NEUTROPHILS % 71.3 % (36.0-66.0); PLATELET COUNT, AUTOMATED 316 10^3/uL (150-450); RED BLOOD COUNT 3.86 10^6/uL (4.00-5.40)
[2018-12-18 12:51] LABS: FOLATE 5.5 NG/ML; PERCENT SATURATION 14.1 % (13.2-45.0)
== END ==
LOC: M SFHCLERA 08:20
PROVIDERS: ATTEND Family Medicine
DX: D64.9 Anemia, unspecified (principal)
CPT/HCPCS: 82607; 82728; 82746; 83550; 85025; 90472; 90670; 90682; 90715; 99495; G0008; G0009; G0463

== ENCOUNTER 2019-01-26 09:20 | Outpatient (RCR) | payer MEDICARE | END 2019-01-31 | LOC: M PT 09:20 | PROVIDERS: ATTEND Physical Medicine & Rehabilitation | DX: Z47.89 Encounter for other orthopedic aftercare (principal) ==

== ENCOUNTER 2019-02-23 09:15 | Outpatient (RCR) | payer MEDICARE ==
[~2019-02-23 09:15] MED LIST changes: +MEMA10TA19; -MEMA1TAB2
== END 2019-03-03 ==
LOC: M PT 09:15
PROVIDERS: ATTEND Physical Medicine & Rehabilitation
DX: Z47.89 Encounter for other orthopedic aftercare (principal); Z96.641 Presence of right artificial hip joint

== ENCOUNTER → 2019-03-17 | Outpatient (REF) | payer MEDICARE ==
[~2019-03-17] MED LIST changes: -MECL-68 PO; +MECL1TAB31 PO
[2019-03-17 11:53] LABS: CALCIUM LEVEL 8.9 MG/DL (8.8-10.2); POTASSIUM SERUM 4.7 MEQ/L (3.5-5.1)
== END ==
LOC: M SFHCLERA 08:52
PROVIDERS: ATTEND Family Medicine
DX: I10 Essential (primary) hypertension (principal)
CPT/HCPCS: 80048; G0463

== ENCOUNTER 2019-04-22 10:20 | Outpatient (RCR) | payer MEDICARE ==
[~2019-04-22 10:20] MED LIST changes: -IRBE150T12 PO; +IRBE150T7 PO
== END 2019-05-02 ==
LOC: M PT 10:20
PROVIDERS: ATTEND Nurse Practitioner Family
DX: M25.551 Pain in right hip (principal); Z96.641 Presence of right artificial hip joint

== ENCOUNTER → 2019-07-21 | Outpatient (REF) | payer MEDICARE ==
[2019-07-21 13:40] LABS: BASO # 0.1 10^3/uL (0.0-0.2); BASO % 1.1 % (0.0-1.0); EOS # 0.5 10^3/uL (0.0-0.5); EOS % 5.7 % (0.0-3.0); HEMATOCRIT 36.8 % (36.0-47.0); HEMOGLOBIN 11.9 g/dl (12.0-15.5); LYMPH # 1.4 10^3/uL (1.5-5.0); MEAN CORPUSCULAR HEMOGLOBIN 30.1 pg (27.0-33.0); MEAN CORPUSCULAR HGB CONC 32.3 g/dl (32.0-36.5); MEAN CORPUSCULAR VOLUME 93.2 fl (80.0-96.0); MONO # 0.8 10^3/uL (0.0-0.8); NEUTROPHILS # 5.5 10^3/uL (1.5-8.5); NEUTROPHILS % 65.8 % (36.0-66.0); PLATELET COUNT, AUTOMATED 316 10^3/uL (150-450); RED BLOOD COUNT 3.95 10^6/uL (4.00-5.40); WHITE BLOOD COUNT 8.4 10^3/uL (4.0-10.0)
[2019-07-21 14:19] LABS: BLOOD UREA NITROGEN 13 MG/DL (7-18); CALCIUM LEVEL 9.3 MG/DL (8.8-10.2); CARBON DIOXIDE LEVEL 30 MEQ/L (21-32); CHLORIDE LEVEL 103 MEQ/L (98-107); CHOLESTEROL LEVEL 166 MG/DL (<200); CREATININE FOR GFR 0.81 MG/DL (0.55-1.30); GLOMERULAR FILTRATION RATE > 60.0 (>39); GLUCOSE, FASTING 98 MG/DL (70-100); HDL CHOLESTEROL 43 MG/DL (>40); LDL CHOLESTEROL 81 MG/DL (<100); NON-HDL-C 123 MG/DL; POTASSIUM SERUM 4.5 MEQ/L (3.5-5.1); SODIUM LEVEL 138 MEQ/L (136-145); TRIGLYCERIDES LEVEL 209 MG/DL (<150)
== END ==
LOC: M SFHCLERA 09:46
PROVIDERS: ATTEND Family Medicine
DX: I10 Essential (primary) hypertension (principal); E78.5 Hyperlipidemia, unspecified
CPT/HCPCS: 36415; 80048; 80061; 85025; G0463

== ENCOUNTER 2020-03-24 19:25 | Emergency (ER) | payer MEDICARE ==
[~2020-03-24] VITALS: Ht 157.5 cm; Wt 72.7 kg
[~2020-03-24 19:25] MED LIST changes: +AMLO1TAB24; +AMLO1TAB24 PO; -AMLO5TAB6; -AMLO5TAB6 PO; +PANT40TA29 PO; -PANT40TA3 PO
--- OUTSIDE RECORDS SUMMARY | 2020-03-24 19:30 | CCD ---
Author Author [facility] Organization [facility] Address Unknown Phone Unavailable Care Team Providers Care As400 Analyst Name Role Phone Lester Cervantes Unavailable PROBLEMS Type Condition ICD9-CM Code [id number] Code Onset Dates Condition S tatus SNOMED Code Notes Problem Acute anxiety F41.9 Active 816942940 Problem Barretts esophagus without dysplasia K22.70 Act leo 977048227 Problem Lee's esophagus determined by biopsy K22.70 Active 047006704 Problem AILYN (obstructive sleep apnea) G47.33 Active 78 193279 Problem Hypertension, unspecified type I10 Active 3 0882033 Problem Hypertension I10 Active 70951617 Problem Seborrheic keratoses L82.1 Active 466736612 Problem Lentigines L81.4 Active 033632323 Problem Perioral dermatitis L71.0 Active 139066151 Problem Arthritis of knee M17.10 Active 066502398 Problem Dementia without behavioral disturbance, unspeci fied dementia type F03.90 Active 70150911 Problem Seasonal allergies J30.2 Active 440733411 Problem Depression, unspecified depression type F32.9 Active 03037220 Problem Actinic keratosis L57.0 Active 895029680 Problem Essential hypertension I10 Active 37619344 Problem Other chronic pain G89.29 Active 57304186 Problem Dyslipidemia E78.5 Active 570471429 ALLERGIES Allergen (clinical drug ingredient) Drug/Non Drug Allergy do cumented on EMR Reaction Allergy Type Onset Date Status codeine Codeine Sulfate(NDC Code:[address]-45) passed o ut with it in tylenol Drug Allergy Active tramadol Tramadol HCl(NDC Code:[address]-41) diz zy/vomiting when given a tab by of his Tramadol Drug Allergy Active ENCOUNTERS from 1945 to 2020-03-01 Encounter Location Date [facility] [address] [place] [address] Feb, Lester Cervantes IMMUNIZATIONS Vaccine Route Administration Date Status Influenza (18 yrs & older) Flublok IM Intramuscular Dec 18, 2018 Administered Influenza (18 yrs & older) Flublok IM Intramuscular Jan 21, 2018 Administered Influenza (High Dose 65 & up) IM Intramuscular Dec 25, 2016 A dministered Pneumococcal Adult 0.5mL (Pneumovax 23) IM Intramuscular July 07, 2015 Administered TDAP 0.5mL (Boostrix) IM Intramuscular Dec 18, 2018 Administe red Pneumococcal 0.5mL (Prevnar 13) IM Intramuscular Dec 18, 2018 Administered Influenza (6mo & up) Fluzone IM Intramuscular Nov 09, 2015 Ad ministered Influenza (6mo & up) Fluzone Unknown May 30, 2015 Oth ers SOCIAL HISTORY Tobacco Use: Social History Observation Description Date Details (start date - stop date) Never Smoker Sex Assigned At : Social History Observation Description Sex Assigned At Unknown Education: Question Answer Notes Level of Education: High School Audit Question Answer Notes Total Score: 0 Interpretation: Alcohol Education Language: Question Answer Notes Languages spoken: Tamazight Amish: Question Answer Notes Amish 21 Taoist Sexual Hx: Question Answer Notes Had sex in the last 12 months (vaginal, oral, or anal)? No Have you ever had an STD? No Drug and Alcohol Question Answer Notes Total Score: 0 Interpretation: No problems reported Alcohol Screening: Question Answer Notes Did you have a drink containing alcohol in the past year? No Points 0 Interpretation Negative BMI Care Goal Follow-Up Question Answer Notes Above Normal BMI Follow-Up Dietary management educatio n, guidance, and counseling Tobacco Use: Question Answer Notes Are you a: never smoker REASON FOR REFERRAL No Information VITAL SIGNS No information MEDICATIONS Medication SIG (Take, Route, Frequency, Duration) Notes Start Da te End Date Status Ranitidine HCl 150 MG 1 capsule Orally-gi bid Active Celecoxib 200 MG 1 capsule with food Orally Once a day for 30 da y(s) Dec, Active Neupro 2 MG/24HR APPLY ONE PATCH TO THE SKIN ONCE A DAY Transdermal for 30 Active Irbesartan 150 MG TAKE ONE TABLET BY MOUTH ONCE A DAY Oral ly Once a day for 90 Active Advair HFA 115-21 MCG/ACT 2 puffs Inhalation Twice a day for 30 days Active Ibuprofen 200 MG 3 tablets with food or milk as needed Or ally Three times a day Active Ondansetron 4 MG 1 tablet on the tongue and a llow to dissolve as needed Orally Every 8 hours Active Lexapro 5 MG 1 tab Orally Once a day for 90 days Active Fluticasone Propionate 50 MCG/ACT 2 sprays Nasally Once a day pr n allergies Dec, Active Donepezil HCl 10 MG 1 tablet at bedtime Orally Once a day Active Furosemide 20 MG 1 tablet Orally Once a day Active Pantoprazole Sodium 40 MG 1 tablet Orally bid for 90 Active Diclofenac Sodium 1 % 4g to affected area of right leg Transdermal every 12 hrs as needed for 30 days Sep, Active Famotidine 40 MG 1 tablet at bedtime Orally bid for 90 Active Meclizine HCl 25 MG 1 tab Orally every 8 hours as needed for 10 Active Ventolin HFA 108 (90 Base) MCG/ACT 2 puffs as needed I nhalation every 4 hrs for Active AmLODIPine Besylate 5 MG 1 tablet Orally Once a day for 90 days Active Atorvastatin Calcium 20 MG 1 tablet Orally Once a day Active PROCEDURES No Information RESULTS No Results REASON FOR VISIT REFILL MEDICAL (GENERAL) HISTORY Type Description Date Medical History Alzehimers Medical History Vitamin D deficiency Medical History hyperlipidemia Medical History hypertension, goal 140/90 Medical History hx precancerous polyp in throat Medical History AILYN Medical History Hx barretts esophagus Medical History history of skin lesions Surgical History D&C Surgical History laparoscopy Surgical History bunionectomy-bilateral Surgical History right hip replacement Surgical History left CTS release Surgical History endoscopy 01/2018 Hospitalization History surgeries Hospitalization History Vertigo 12/09/18- 9 Goals Section No Information Health Concerns No Information MEDICAL EQUIPMENT No Information MENTAL STATUS No Information FUNCTIONAL STATUS No Information ASSESSMENTS No Information PLAN OF TREATMENT Medication Medication Name Sig Start Date Stop Date Famotidine 40 MG 1 tablet at bedtime Orally bid for 90 AmLODIPine Besylate 5 MG 1 tablet Orally Once a day for 90 days Furosemide 20 MG 1 tablet Orally Once a day Irbesartan 150 MG TAKE ONE TABLET BY MOUTH ONCE A DAY Oral ly Once a day for 90 Meclizine HCl 25 MG 1 tab Orally every 8 hours as needed for 10 Donepezil HCl 10 MG 1 tablet at bedtime Orally Once a day Advair HFA 115-21 MCG/ACT 2 puffs Inhalation Twice a day for 30 days Insurance Providers Payer Name Payer Address Payer Phone Insured Name Patient Relati onship to Insured Coverage Start Date Coverage End Date [facility] [address] [address] [facility] [phone] DENI AGUILAR self
--- OUTSIDE RECORDS SUMMARY | 2020-03-24 19:30 | CCD ---
Author Author [facility] Organization [facility] Address Unknown Phone Unavailable Care Team Providers Care Control Manager Name Role Phone Lester Cervantes Unavailable PROBLEMS Type Condition ICD9-CM Code [id number] Code Onset Dates Condition S tatus SNOMED Code Notes Problem Acute anxiety F41.9 Active 791488177 Problem Barretts esophagus without dysplasia K22.70 Act leo 891339485 Problem Lee's esophagus determined by biopsy K22.70 Active 226759455 Problem AILYN (obstructive sleep apnea) G47.33 Active 78 683765 Problem Hypertension, unspecified type I10 Active 3 3293386 Problem Hypertension I10 Active 69324690 Problem Seborrheic keratoses L82.1 Active 960000715 Problem Lentigines L81.4 Active 777800593 Problem Perioral dermatitis L71.0 Active 012625936 Problem Arthritis of knee M17.10 Active 297911018 Problem Dementia without behavioral disturbance, unspeci fied dementia type F03.90 Active 87325378 Problem Seasonal allergies J30.2 Active 225283327 Problem Depression, unspecified depression type F32.9 Active 25182568 Problem Actinic keratosis L57.0 Active 788494379 Problem Essential hypertension I10 Active 53202376 Problem Other chronic pain G89.29 Active 94307958 Problem Dyslipidemia E78.5 Active 467874737 ALLERGIES Allergen (clinical drug ingredient) Drug/Non Drug Allergy do cumented on EMR Reaction Allergy Type Onset Date Status codeine Codeine Sulfate(NDC Code:[address]-74) passed o ut with it in tylenol Drug Allergy Active tramadol Tramadol HCl(NDC Code:[address]-86) diz zy/vomiting when given a tab by of his Tramadol Drug Allergy Active ENCOUNTERS from 1945 to 2020-01-04 Encounter Location Date [facility] [address] [place] [address] Jan, Lester Cervantes IMMUNIZATIONS Vaccine Route Administration Date [...] Education Language: Question Answer Notes Languages spoken: Estonian Tenriism: Question Answer Notes Tenriism 21 Nondenominational Sexual Hx: Question Answer Notes Had sex [...] MEDICATIONS Medication SIG (Take, Route, Frequency, Duration) Start Date En d Date Status Ranitidine HCl 150 MG 1 capsule Orally-gi bid Active Celecoxib 200 MG 1 capsule with food Orally Once a day fo r 30 day(s) Dec, Active Neupro 2 MG/24HR APPLY ONE PATCH TO THE SKIN ONCE A DAY Transdermal for 30 Active Furosemide 20 MG 1 tablet Orally Once a day Active Irbesartan 150 MG TAKE ONE TABLET BY MOUTH ONC E A DAY Orally Once a day for 90 day(s) Active Lexapro 5 MG 1 tab Orally Once a day for 90 days Active Advair HFA 115-21 MCG/ACT 2 puffs Inhalation Twice a day for 30 Active Ondansetron 4 MG 1 tablet on the tongue and a llow to dissolve as needed Orally Every 8 hours Active Fluticasone Propionate 50 MCG/ACT 2 sprays Nasally Once a da y prn allergies Dec, Active Meclizine HCl 25 MG 1 tab Orally every 8 hours as needed for 10 Active Donepezil HCl 10 MG 1 tablet at bedtime Orally Once a day Active Ibuprofen 200 MG 3 tablets with food or milk as needed Or ally Three times a day Active Diclofenac Sodium 1 % 4g to affected area of right leg Transdermal every 12 hrs as needed for 30 days Sep, Active Famotidine 40 MG 1 tablet at bedtime Orally bid for 90 Active AmLODIPine Besylate 5 MG 1 tablet Orally Once a day Active Ventolin HFA 108 (90 Base) MCG/ACT 2 puffs as needed I nhalation every 4 hrs for Active Pantoprazole Sodium 40 MG 1 tablet Orally bid for 90 Active Atorvastatin Calcium 20 MG 1 tablet Orally Once a day Active PROCEDURES No Information RESULTS No Results REASON FOR VISIT refill MEDICAL (GENERAL) HISTORY Type Description Date Medical [...] Medication Name Sig Start Date Stop Date Furosemide 20 MG 1 tablet Orally Once a day Famotidine 40 MG 1 tablet at bedtime Orally bid for 90 Meclizine HCl 25 MG 1 tab Orally every 8 hours as needed for 10 Donepezil HCl 10 MG 1 tablet at bedtime Orally Once a day Irbesartan 150 MG TAKE ONE TABLET BY MOUTH ONC E A DAY Orally Once a day for 90 day(s) AmLODIPine Besylate 5 MG 1 tablet Orally Once a day Insurance Providers Payer Name Payer Address Payer Phone Insured Name Patient Relati onship to Insured Coverage Start Date Coverage End Date [facility] [address] [address] [facility] [phone] DENI AGUILAR self
--- OUTSIDE RECORDS SUMMARY | 2020-03-24 19:30 | CCD ---
Author Author [facility] Organization [facility] Address Unknown Phone Unavailable Care Team Providers Care Cork Floor Installer Name Role Phone Lester Cervantes Unavailable PROBLEMS Type Condition ICD9-CM Code QDM16-LP Code Onset Dates Condition S tatus SNOMED Code Notes Problem Acute anxiety F41.9 Active 180452806 Problem Barretts esophagus without dysplasia K22.70 Act leo 217233420 Problem Lee's esophagus determined by biopsy K22.70 Active 024457170 Problem AILYN (obstructive sleep apnea) G47.33 Active 78 393377 Problem Hypertension, unspecified type I10 Active 3 5099460 Problem Hypertension I10 Active 22133896 Problem Seborrheic keratoses L82.1 Active 291309292 Problem Lentigines L81.4 Active 207470966 Problem Perioral dermatitis L71.0 Active 410517350 Problem Arthritis of knee M17.10 Active 833195381 Problem Dementia without behavioral disturbance, unspeci fied dementia type F03.90 Active 60578614 Problem Seasonal allergies J30.2 Active 410182210 Problem Depression, unspecified depression type F32.9 Active 38105766 Problem Actinic keratosis L57.0 Active 160694939 Problem Essential hypertension I10 Active 86324107 Problem Other chronic pain G89.29 Active 37785828 Problem Dyslipidemia E78.5 Active 476442828 ALLERGIES Allergen (clinical drug ingredient) Drug/Non Drug Allergy do cumented on EMR Reaction Allergy Type Onset Date Status codeine Codeine Sulfate(NDC Code:[address]-90) passed o ut with it in tylenol Drug Allergy Active tramadol Tramadol HCl(NDC Code:[address]-87) diz zy/vomiting when given a tab by of his Tramadol Drug Allergy Active ENCOUNTERS from 1945 to 2020-01-19 Encounter [facility] Date [facility] [address] [place] [address] Jan, Lester Cervantes Hypertension I10 IMMUNIZATIONS Vaccine Route Administration Date Status Influenza [...] Education Language: Question Answer Notes Languages spoken: Belarusian Orthodox: Question Answer Notes Orthodox 21 Zoroastrianism Sexual Hx: Question Answer Notes Had sex [...] ONCE A DAY Transdermal for 30 Active Famotidine 40 MG 1 tablet at bedtime Orally bid for 90 Active Irbesartan 150 MG TAKE ONE TABLET [...] 1 tablet Orally Once a day Active Ibuprofen 200 MG 3 tablets with food or milk as needed Or ally Three times a day Active Diclofenac Sodium 1 % 4g to affected area of right leg Transdermal every 12 hrs as needed for 30 days Sep, Active AmLODIPine Besylate 5 MG 1 tablet Orally Once a day for 90 days Active Meclizine HCl 25 MG 1 tab [...] No Information FUNCTIONAL STATUS No Information ASSESSMENTS Encounter Date Diagnosis Assessment Notes Treatment Notes Treatm ent Clinical Notes Jan, Hypertension (ICD-10 - I10) PLAN OF TREATMENT Medication Medication Name Sig Start Date Stop Date Famotidine 40 MG 1 tablet at bedtime Orally bid for 90 AmLODIPine Besylate 5 MG 1 tablet Orally Once a day for 90 days Donepezil HCl 10 MG 1 tablet at bedtime Orally Once a day Furosemide 20 MG 1 tablet Orally Once a day Irbesartan 150 MG TAKE ONE TABLET BY MOUTH ONC E A DAY Orally Once a day for 90 day(s) Meclizine HCl 25 MG 1 tab Orally every 8 hours as needed for 10 Insurance Providers Payer Name Payer Address Payer Phone Insured Name Patient Relati onship to Insured Coverage Start Date Coverage End Date COUNTS INCLUDE [facility] [address] [address] [facility] [phone] DENI AGUILAR
--- OUTSIDE RECORDS SUMMARY | 2020-03-24 19:30 | CCD ---
Continuity of Care Document (CCD) Created on: 02/23/2020 Monisha Pereira External Reference #: [id number] : 1945 Sex: Female Author Author Monisha OROSCO M.D. Organization Unknown Address [address] [place] [address] Phone [phone] Care Team Providers Care Molding Line Operator Name Role Phone Edinson Burnett M.D. AUTM [phone] Problems Active Problems Provider Date Dementia Jamel Orosco M.D. Onset: 01/07/2018 Social History Type Date Description Comments Sex Unknown Tobacco Use Start: Unknown Patient has never smoked Allergies, Adverse Reactions, Alerts Description No Known Drug Allergies Medications Active Medications SIG Qnty Indications Ordering Provide r Date Exelon 4.6mg/24HR Patches 24HR one patch applied transdermal every day for 24hrs. 30units Jamel kennedy M.D. 06/23/2019 Donepezil HCL 10mg Tablets take one tablet by mouth every day in the morning. 90tabs Jamel joe M.D. 01/07/2018 Ondansetron 4mg Tablets Dispers take 1 tab every 8 hours as needed for nausea and vomiting and or migraine 30tabs Jamel Orosco M.D. 01/07/2018 Immunizations Description No Information Available Vital Signs Date Vital Result Comment 02/23/2020 11:26am Respiratory Rate 12 /min Height 62.5 inches 5'2.50" Weight 200.00 lb BMI (Body Mass Index) 36.0 kg/m2 [place] Body Weight 110 lb 11/16/2019 10:21am Respiratory Rate 12 /min Height 62.5 inches 5'2.50" Weight 200.00 lb BMI (Body Mass Index) 36.0 kg/m2 [place] Body Weight 110 lb Results Description No Information Available Procedures Description No Information Available Medical Devices Description No Information Available Encounters Type Date Location Provider Dx Diagnosis Office Visit 11/16/2019 10:15a Main office - [place] Jamel quispe M.D. G30.1 Alzheimer's disease with late onset Assessments Date Code Description Provider 02/23/2020 G30.1 Alzheimer's disease with late on set Jamel Orosco M.D. 11/16/2019 G30.1 Alzheimer's disease with late on set Jamel Orosco M.D. Plan of Treatment No Information Available Functional Status Description No Information Available Mental Status Description No Information Available Referrals Description No Information Available
--- OUTSIDE RECORDS SUMMARY | 2020-03-24 19:30 | CCD ---
Author Author [facility] Organization [facility] Address Unknown Phone Unavailable Care Team Providers Care Leaf Stripper Name Role Phone GOLDYNOELLE PA Unavailable Unavailable GOLDY, NOELLE PA Unavailable Unavailable GOLDY, NOELLE PA Unavailable Unavailable GOLDY, NOELLE PA Unavailable Unavailable GOLDY, NOELLE PA Unavailable Unavailable GOLDY, NOELLE PA Unavailable Unavailable GOLDY, NOELLE PA Unavailable Unavailable GOLDY, NOELLE PA Unavailable Unavailable GOLDY, NOELLE PA Unavailable Unavailable GOLDY, NOELLE PA Unavailable Unavailable GOLDY, NOELLE PA Unavailable Unavailable GOLDY, NOELLE PA Unavailable Unavailable GOLDY, NOELLE PA Unavailable Unavailable GOLDY, NOELLE PA Unavailable Unavailable GOLDY, NOELLE PA Unavailable Unavailable GOLDY, NOELLE PA Unavailable Unavailable GOLDY, NOELLE PA Unavailable Unavailable GOLDY, NOELLE PA Unavailable Unavailable GOLDY, NOELLE PA Unavailable Unavailable GOLDY, NOELLE PA Unavailable Unavailable GOLDY, NOELLE PA Unavailable Unavailable GOLDY, NOELLE PA Unavailable Unavailable GOLDY, NOELLE PA Unavailable Unavailable GOLDY, NOELLE PA Unavailable Unavailable GOLDY, NOELLE PA Unavailable Unavailable GOLDY, NOELLE PA Unavailable Unavailable GOLDY, NOELLE PA Unavailable Unavailable GOLDY, NOELLE PA Unavailable Unavailable GOLDY, NOELLE PA Unavailable Unavailable GOLDY, NOELLE PA Unavailable Unavailable GOLDY, NOELLE PA Unavailable Unavailable GOLDY, NOELLE PA Unavailable Unavailable GOLDY, NOELLE PA Unavailable Unavailable GOLDY, NOELLE PA Unavailable Unavailable GOLDY, NOELLE PA Unavailable Unavailable GOLDY, NOELLE PA Unavailable Unavailable GOLDY, NOELLE PA Unavailable Unavailable GOLDY, NOELLE PA Unavailable Unavailable Jimmy Stoner MD Unavailable Unavailable Herbie, O Jamel MARADIAGA Unavailable Unavailable Herbie, O Samadam MARADIAGA Unavailable Unavailable Herbie, O Samah Unavailable Unavailable Herbie, O Samah Unavailable Unavailable Herbie, O Samah Unavailable Unavailable Herbie O Jamel MARADIAGA Unavailable Unavailable Herbie O Jamel MARADIAGA Unavailable Unavailable Herbie O Jamel MARADIAGA Unavailable Unavailable Herbie O Jamel MARADIAGA Unavailable Unavailable Herbie O Jamel MARADIAGA Unavailable Unavailable Jimmy Stoner MD Unavailable Unavailable Herbie O Jamel MARADIAGA Unavailable Unavailable Jimmy Stoner MD Unavailable Unavailable Herbie O Jamel MARADIAGA Unavailable Unavailable Herbie O Jamel MARADIAGA Unavailable Unavailable Herbie O Jamel MARADIAGA Unavailable Unavailable Jimmy Stoner MD Unavailable Unavailable Jimmy Stoner MD Unavailable Unavailable Jimmy Stoner MD Unavailable Unavailable Jimmy Stoner MD Unavailable Unavailable Herbie O [place] Unavailable Unavailable Jimmy Stoner MD Unavailable Unavailable Jimmy Stoner MD Unavailable Unavailable Jimmy Stoner MD Unavailable Unavailable Herbie O [place] Unavailable Unavailable Herbie O [place] Unavailable Unavailable Herbie O Samah Unavailable Unavailable Herbie O [place] Unavailable Unavailable Herbie O [place] Unavailable Unavailable Herbie O Samah Unavailable Unavailable Herbie O Samah Unavailable Unavailable Herbie, O Samah Unavailable Unavailable Herbie O [place] Unavailable Unavailable Herbie O [place] Unavailable Unavailable Herbie O Jamel MARADIAGA Unavailable Unavailable Herbie, O Samah MD Unavailable Unavailable Herbie, O Samah MD Unavailable Unavailable Herbie, O Samah MD Unavailable Unavailable Herbie, O Samah MD Unavailable Unavailable Herbie, O Samah MD Unavailable Unavailable Herbie, O Samah MD Unavailable Unavailable Herbie, O Samah MD Unavailable Unavailable Herbie, O Samah MD Unavailable Unavailable Herbie, O Samah MD Unavailable Unavailable Herbie, O Samah MD Unavailable Unavailable Herbie, O Samah MD Unavailable Unavailable Herbie, O Samah MD Unavailable Unavailable Herbie, O Samah MD Unavailable Unavailable Herbie, O Samah MD Unavailable Unavailable Herbie, O Samah MD Unavailable Unavailable Herbie, O Samah MD Unavailable Unavailable Herbie, O Samah MD Unavailable Unavailable Herbie, O Samah MD Unavailable Unavailable Herbie, O Samah MD Unavailable Unavailable Herbie, O Samah MD Unavailable Unavailable Herbie, O Samah MD Unavailable Unavailable Herbie, O Samah MD Unavailable Unavailable Herbie, O Samah MD Unavailable Unavailable Herbie, O Samah MD Unavailable Unavailable Herbie, O Samah MD Unavailable Unavailable Herbie, O Samah MD Unavailable Unavailable Herbie, O Samah MD Unavailable Unavailable Herbie, O Samah MD Unavailable Unavailable Herbie, O Samah MD Unavailable Unavailable Herbie, O Samah MD Unavailable Unavailable Herbie, O Samah MD Unavailable Unavailable Herbie, O Samah MD Unavailable Unavailable Herbie, O Samah MD Unavailable Unavailable Herbie, O Samah MD Unavailable Unavailable Herbie, O Samah MD Unavailable Unavailable Herbie, O Samah MD Unavailable Unavailable Herbie, O Samah MD Unavailable Unavailable Herbie, O Samah MD Unavailable Unavailable Herbie, O Samah MD Unavailable Unavailable Re-disclosure Warning The records that you are about to access may contain information from federally-assisted alcohol or drug abuse programs. If such information is present, then the following federally mandated warning applies: This information has been disclosed to you from records protected by federal confidentiality rules (42 CFR part 2). The federal rules prohibit you from making any further disclosure of this information unless further disclosure is expressly permitted by the written consent of the person to whom it pertains or as otherwise permitted by 42 CFR part 2. A general authorization for the release of medical or other information is NOT sufficient for this purpose. The Federal rules restrict any use of the information to criminally investigate or prosecute any alcohol or drug abuse patient.The records that you are about to access may contain highly sensitive health information, the redisclosure of which is protected by Article 27-F of the [facility] Public Health law. If you continue you may have access to information: Regarding HIV / AIDS; Provided by facilities licensed or operated by the [facility] Office of Mental Health; or Provided by the [facility] Office for People With Developmental Disabilities. If such information is present, then the following [facility] mandated warning applies: This information has been disclosed to you from confidential records which are protected by state law. State law prohibits you from making any further disclosure of this information without the specific written consent of the person to whom it pertains, or as otherwise permitted by law. Any unauthorized further disclosure in violation of state law may result in a fine or penitentiary sentence or both. A general authorization for the release of medical or other information is NOT sufficient authorization for further disc losure. Allergies and Adverse Reactions Type Description Substance Reaction Status Data Source(s ) Drug allergy Tramadol HCl Tramadol dizzy/vomiting w hen given a tab by of his Tramadol Active eCW1 ([facility]) Codeine Sulfate Codeine Sulfate Codeine Sulfate passed out with it in tylenol Active [facility] ([facility]) Family History Family Member Name Family Member Gender Family Member Status Date o f Status Description Data Source(s) Unknown Unknown Problem MEDENT ([facility]) Unknown Unknown Problem MEDENT ([facility]) Unknown Unknown Problem MEDENT ([facility]) Unknown Unknown Problem MEDENT ([facility]) Encounters Encounter Providers Location Date Indications Data Source(s ) Unknown [address] [facility] [address] 03/01/2020 12:00:00 AM EST eCW1 ([facility]) Outpatient Attender: Jamel Stoner MD Main office - [facility] 02/23/2020 10:15:00 AM EST MEDENT ([facility]) Unknown [address] [facility] [address] 01/19/2020 12:00:00 AM EST eCW1 ([facility]) Unknown [address] [facility] [place] [address] 01/04/2020 12:00:00 AM EST eCW1 ([facility]) Outpatient Attender: Jamel Stoner MD [facility] 11/16/2019 10:15:00 AM EDT MEDENT ([facility]) Unknown [address] [facility] [address] 08/16/2019 12:00:00 AM EDT eCW1 ([facility]) TeleMedicine Est. Pt. Level 3 [address] [place] [address] 08/04/2019 12:00:00 AM EDT eCW1 ([facility]) Outpatient Attender: Jamel Stoner MD [facility] 06/23/2019 11:00:00 AM EDT MEDENT ([facility] ) [facility] [place] [address] [facility] [address] 06/23/2019 12:00:00 AM EDT eCW1 ([facility]) Outpatient [address] [facility] [place] [address] 06/16/2019 12:00:00 AM EDT eCW1 ([facility]) [facility] [address] [facility] [place] [address] 06/12/2019 12:00:00 AM EDT eCW1 ([facility]) [facility] [address] [facility] [place] [address] 04/10/2019 12:00:00 AM EST eCW1 ([facility]) Outpatient Attender: NOELLE rao 04/05/2019 01:50:00 PM EST MEDENT ([facility] [address] [facility] [place] [address] 03/17/2019 12:00:00 AM EST eCW1 ([facility]) [facility] [address] [facility], [facility] [address] 02/23/2019 12:00:00 AM EST eCW1 ([facility]) Medications Medication Brand Name Start Date Product Form Dose Route Admi nistrative Instructions Pharmacy Instructions Status Indications Reaction Description Data Source(s) 200 mg 03/11/2020 12:00:00 AM EST capsule 30 TAKE ONE CAPSULE BY MOUTH ONCE DAILY WITH FOOD MAXIMUM DAILY DOSE = 1 CAPSULE TAKE ONE CAPSULE BY MOUTH ONCE DAILY WITH FOOD MAXIMUM DAILY DOSE = 1 CAPSULE SOLD: 03/11/2020 [facility] 115-21 mcg/actuation 03/02/2020 12:00:00 AM EST HFA aerosol inhaler 12 INHALE TWO PUFFS BY MOUTH TWICE A DAY INHALE TWO PUFFS BY MOUTH TWICE A DAY SOLD: 03/02/2020 [facility] 150 mg 02/10/2020 12:00:00 AM EST tablet 90 TAKE 1 TABLET BY MOUTH ONCE A DAY TAKE 1 TABLET BY MOUTH ONCE A DAY SOLD: 02/10/2020 [facility] 200 mg 02/10/2020 12:00:00 AM EST capsule 30 TAKE 1 CAPSULE BY MOUTH ONCE DAILY WITH FOOD MAXIMUM DAILY DOSE = 1 TAKE 1 CAPSULE BY MOUTH ONCE DAILY WITH FOOD MAXIMUM DAILY DOSE = 1 SOLD: 02/10/2020 [facility] 100 mg 02/06/2020 12:00:00 AM EST capsule 180 TAKE TWO CAPSULES BY MOUTH THREE TIMES A DAY MAXIMUM DAILY DOSE = 6 TAKE TWO CAPSULES BY MOUTH THREE TIMES A DAY MAXIMUM DAILY DOSE = 6 SOLD: 03/06/2020 [facility] 100 mg 02/06/2020 12:00:00 AM EST capsule 180 TAKE TWO CAPSULES BY MOUTH THREE TIMES A DAY MAXIMUM DAILY DOSE = 6 TAKE TWO CAPSULES BY MOUTH THREE TIMES A DAY MAXIMUM DAILY DOSE = 6 SOLD: 02/06/2020 [facility] 1 % 02/05/2020 12:00:00 AM EST gel 400 APPLY 2 GRAMS TO AREA OF PAIN UP TO 4 TIMES A DAY APPLY 2 GRAMS TO AREA OF PAIN UP TO 4 TIMES A DAY SOLD: 06/2019 [facility] pantoprazole 40 MG Delayed Release Oral Tablet PANTOPRAZOLE SODIUM 02/04/2020 12:00:00 AM EST tablet,delayed release (DR/EC) 180 T CARMELLA 1 TABLET BY MOUTH TWO TIMES A DAY TAKE 1 TABLET BY MOUTH TWO TIMES A DAY SOLD: 02/05/2020 [facility] atorvastatin 20 MG Oral Tablet ATORVASTATIN CALCIUM 01/25/2020 1 2:00:00 AM EST tablet 90 TAKE ONE TABLET BY MOUTH EVERY D AY TAKE ONE TABLET BY MOUTH EVERY DAY SOLD: 01/25/2020 [facility] 5 mg 01/19/2020 12:00:00 AM EST tablet 90 TAKE 1 TABLET BY MOUTH ONCE A DAY TAKE 1 TABLET BY MOUTH ONCE A DAY SOLD: 01/19/2020 [facility] Meclizine Hydrochloride 25 MG Oral Tablet MECLIZINE HCL 01/05/2020 12:00:00 AM EST tablet 30 TAKE ONE TABLET BY MOUTH [place] RY 8 HOURS NEEDED TAKE ONE TABLET BY MOUTH EVERY 8 HOURS NEEDED SOLD: 02/06/2020 [facility] Meclizine Hydrochloride 25 MG Oral Tablet MECLIZINE HCL 01/05/2020 12:00:00 AM EST tablet 30 TAKE ONE TABLET BY MOUTH [place] RY 8 HOURS NEEDED TAKE ONE TABLET BY MOUTH EVERY 8 HOURS NEEDED SOLD: 03/06/2020 [facility] 200 mg 12/23/2019 12:00:00 AM EDT capsule 30 TAKE 1 CAPSULE BY MOUTH DAILY WITH FOOD MAXIMUM DAILY DOSE = 1 TAKE 1 CAPSULE BY MOUTH DAILY WITH FOOD MAXIMUM DAILY DOSE = 1 SOLD: 12/23/2019 [facility] 200 mg 12/23/2019 12:00:00 AM EDT capsule 30 TAKE 1 CAPSULE BY MOUTH DAILY WITH FOOD MAXIMUM DAILY DOSE = 1 TAKE 1 CAPSULE BY MOUTH DAILY WITH FOOD MAXIMUM DAILY DOSE = 1 SOLD: 01/20/2020 [facility] Escitalopram 5 MG Oral Tablet ESCITALOPRAM OXALATE 12/18/2019 12 :00:00 AM EDT tablet 90 TAKE ONE TABLET BY MOUTH EVERY D AY TAKE ONE TABLET BY MOUTH EVERY DAY SOLD: 12/18/2019 [facility] Escitalopram 5 MG Oral Tablet ESCITALOPRAM OXALATE 12/18/2019 12 :00:00 AM EDT tablet 90 TAKE ONE TABLET BY MOUTH EVERY D AY TAKE ONE TABLET BY MOUTH EVERY DAY SOLD: 03/15/2020 [facility] 40 mg 12/17/2019 12:00:00 AM EDT tablet 180 TAKE ONE TABLET BY MOUTH TWICE A DAY TAKE ONE TABLET BY MOUTH TWICE A DAY SOLD: 12/17/2019 [facility] 4.6 mg/24 hr 11/17/2019 12:00:00 AM EDT patch 24 hour 30 APPLY 1 PATCH TO THE SKIN ONCE DAILY FOR 24 HOURS APPLY 1 PATCH TO THE SKIN ONCE DAILY FOR 24 HOURS SOLD: 11/17/2019 [facility] 4.6 mg/24 hr 11/17/2019 12:00:00 AM EDT patch 24 hour 30 APPLY 1 PATCH TO THE SKIN ONCE DAILY FOR 24 HOURS APPLY 1 PATCH TO THE SKIN ONCE DAILY FOR 24 HOURS SOLD: 02/16/2020 [facility] 4.6 mg/24 hr 11/17/2019 12:00:00 AM EDT patch 24 hour 30 APPLY 1 PATCH TO THE SKIN ONCE DAILY FOR 24 HOURS APPLY 1 PATCH TO THE SKIN ONCE DAILY FOR 24 HOURS SOLD: 12/14/2019 [facility] 4.6 mg/24 hr 11/17/2019 12:00:00 AM EDT patch 24 hour 30 APPLY 1 PATCH TO THE SKIN ONCE DAILY FOR 24 HOURS APPLY 1 PATCH TO THE SKIN ONCE DAILY FOR 24 HOURS SOLD: 01/19/2020 [facility] 1 % 11/17/2019 12:00:00 AM EDT gel 200 APPLY 4 GRAMS TO AFFECTED AREA OF RIGHT LEG EVERY 12HRS NEEDED APPLY 4 GRAMS TO AFFECTED AREA OF RIGHT LEG EVERY 12HRS NEEDED SOLD: 11/17/2019 [facility] 115-21 mcg/actuation 11/10/2019 12:00:00 AM EDT HFA aerosol inhaler 12 INHALE TWO PUFFS BY MOUTH TWICE A DAY INHALE TWO PUFFS BY MOUTH TWICE A DAY SOLD: 12/09/2019 [facility] 90 mcg/actuation 11/10/2019 12:00:00 AM EDT HFA aerosol inha ler 18 INHALE 2 PUFFS BY MOUTH EVERY 4 HOURS NEEDED INHALE 2 PUFFS BY MOUTH EVERY 4 HOURS NEEDED SOLD: 12/11/2019 [facility] 115-21 mcg/actuation 11/10/2019 12:00:00 AM EDT HFA aerosol inhaler 12 INHALE TWO PUFFS BY MOUTH TWICE A DAY INHALE TWO PUFFS BY MOUTH TWICE A DAY SOLD: 11/11/2019 [facility] 90 mcg/actuation 11/10/2019 12:00:00 AM EDT HFA aerosol inha ler 18 INHALE 2 PUFFS BY MOUTH EVERY 4 HOURS NEEDED INHALE 2 PUFFS BY MOUTH EVERY 4 HOURS NEEDED SOLD: 11/11/2019 [facility] 90 mcg/actuation 11/10/2019 12:00:00 AM EDT HFA aerosol inha ler 18 INHALE 2 PUFFS BY MOUTH EVERY 4 HOURS NEEDED INHALE 2 PUFFS BY MOUTH EVERY 4 HOURS NEEDED SOLD: 11/26/2019 [facility] 90 mcg/actuation 11/10/2019 12:00:00 AM EDT HFA aerosol inha ler 18 INHALE 2 PUFFS BY MOUTH EVERY 4 HOURS NEEDED INHALE 2 PUFFS BY MOUTH EVERY 4 HOURS NEEDED SOLD: 12/26/2019 [facility] 115-21 mcg/actuation 11/10/2019 12:00:00 AM EDT HFA aerosol inhaler 12 INHALE TWO PUFFS BY MOUTH TWICE A DAY INHALE TWO PUFFS BY MOUTH TWICE A DAY SOLD: 02/03/2020 [facility] 500 mg 09/28/2019 12:00:00 AM EDT tablet 120 TAKE TWO TABLETS BY MOUTH EVERY 12 HOURS NEEDED TAKE TWO TABLETS BY MOUTH EVERY 12 HOURS NEEDED DARYL [facility] atorvastatin 20 MG Oral Tablet ATORVASTATIN CALCIUM 09/28/2019 1 2:00:00 AM EDT tablet 90 TAKE ONE TABLET BY MOUTH EVERY D AY TAKE ONE TABLET BY MOUTH EVERY DAY SOLD: 09/28/2019 [facility] 40 mg 09/28/2019 12:00:00 AM EDT tablet 180 TAKE ONE TABLET BY MOUTH TWICE A DAY TAKE ONE TABLET BY MOUTH TWICE A DAY SOLD: 09/28/2019 [facility] 200 mg 09/15/2019 12:00:00 AM EDT capsule 30 TAKE 1 CAPSULE BY MOUTH DAILY WITH FOOD MAXIMUM DAILY DOSE = 1 TAKE 1 CAPSULE BY MOUTH DAILY WITH FOOD MAXIMUM DAILY DOSE = 1 SOLD: 10/12/2019 [facility] 200 mg 09/15/2019 12:00:00 AM EDT capsule 30 TAKE 1 CAPSULE BY MOUTH DAILY WITH FOOD MAXIMUM DAILY DOSE = 1 TAKE 1 CAPSULE BY MOUTH DAILY WITH FOOD MAXIMUM DAILY DOSE = 1 SOLD: 09/15/2019 [facility] 200 mg 09/15/2019 12:00:00 AM EDT capsule 30 TAKE 1 CAPSULE BY MOUTH DAILY WITH FOOD MAXIMUM DAILY DOSE = 1 TAKE 1 CAPSULE BY MOUTH DAILY WITH FOOD MAXIMUM DAILY DOSE = 1 SOLD: 11/09/2019 [facility] 100 mg 09/14/2019 12:00:00 AM EDT capsule 90 TAKE ONE CAPSULE BY MOUTH THREE TIMES A DAY TAKE ONE CAPSULE BY MOUTH THREE TIMES A DAY SOLD: 09/14/2019 [facility] 100 mg 09/14/2019 12:00:00 AM EDT capsule 90 TAKE ONE CAPSULE BY MOUTH THREE TIMES A DAY TAKE ONE CAPSULE BY MOUTH THREE TIMES A DAY SOLD: 11/09/2019 [facility] 100 mg 09/14/2019 12:00:00 AM EDT capsule 90 TAKE ONE CAPSULE BY MOUTH THREE TIMES A DAY TAKE ONE CAPSULE BY MOUTH THREE TIMES A DAY SOLD: 10/12/2019 [facility] 150 mg 08/18/2019 12:00:00 AM EDT tablet 90 TAKE 1 TABLET BY MOUTH ONCE A DAY TAKE 1 TABLET BY MOUTH ONCE A DAY SOLD: 11/13/2019 [facility] 200 mg 08/18/2019 12:00:00 AM EDT capsule 30 TAKE 1 CAPSULE BY MOUTH ONCE DAILY WITH FOOD MAX DAILY DOSE = 1 TAKE 1 CAPSULE BY MOUTH ONCE DAILY WITH FOOD MAX DAILY DOSE = 1 SOLD: 08/18/2019 [facility] 150 mg 08/18/2019 12:00:00 AM EDT tablet 90 TAKE 1 TABLET BY MOUTH ONCE A DAY TAKE 1 TABLET BY MOUTH ONCE A DAY SOLD: 08/18/2019 [facility] 25 mg 07/18/2019 12:00:00 AM EDT tablet 30 TAKE ONE TABLET BY MOUTH EVERY 8 HOURS NEEDED TAKE ONE TABLET BY MOUTH EVERY 8 HOURS NEEDED SOLD: 07/18/2019 [facility] 10 mg 07/10/2019 12:00:00 AM EDT tablet 90 TAKE 1 TABLET BY MOUTH EVERY DAY IN THE MORNING TAKE 1 TABLET BY MOUTH EVERY DAY IN THE MORNING SOLD: 2019 [facility] 10 mg 07/10/2019 12:00:00 AM EDT tablet 90 TAKE 1 TABLET BY MOUTH EVERY DAY IN THE MORNING TAKE 1 TABLET BY MOUTH EVERY DAY IN THE MORNING SOLD: 2019 [facility] Escitalopram 5 MG Oral Tablet ESCITALOPRAM OXALATE 06/25/2019 12 :00:00 AM EDT tablet 90 TAKE ONE TABLET BY MOUTH ONCE A DAY TAKE ONE TABLET BY MOUTH ONCE A DAY SOLD: 06/25/2019 [facility] 5 mg 06/25/2019 12:00:00 AM EDT tablet 90 TAKE ONE TABLET BY MOUTH ONCE A DAY TAKE ONE TABLET BY MOUTH ONCE A DAY SOLD: 09/21/2019 [facility] 100 mg 06/23/2019 12:00:00 AM EDT capsule 90 TAKE ONE CAPSULE BY MOUTH THREE TIMES A DAY TAKE ONE CAPSULE BY MOUTH THREE TIMES A DAY SOLD: 06/23/2019 [facility] 24 HR rivastigmine 0.192 MG/HR Transdermal Patch [Exelon] Ex radha 06/23/2019 12:00:00 AM EDT active M LYRICENT ([facility] ) 4.6 mg/24 hr 06/23/2019 12:00:00 AM EDT patch 24 hour 30 APPLY 1 PATCH TO THE SKIN EVERY DAY FOR 24 HOURS APPLY 1 PATCH TO THE SKIN EVERY DAY FOR 24 HOURS SOLD: 07/20/2019 [facility] 4.6 mg/24 hr 06/23/2019 12:00:00 AM EDT patch 24 hour 30 APPLY 1 PATCH TO THE SKIN EVERY DAY FOR 24 HOURS APPLY 1 PATCH TO THE SKIN EVERY DAY FOR 24 HOURS SOLD: 08/15/2019 [facility] 100 mg 06/23/2019 12:00:00 AM EDT capsule 90 TAKE ONE CAPSULE BY MOUTH THREE TIMES A DAY TAKE ONE CAPSULE BY MOUTH THREE TIMES A DAY SOLD: 07/20/2019 [facility] 4.6 mg/24 hr 06/23/2019 12:00:00 AM EDT patch 24 hour 30 APPLY 1 PATCH TO THE SKIN EVERY DAY FOR 24 HOURS APPLY 1 PATCH TO THE SKIN EVERY DAY FOR 24 HOURS SOLD: 06/23/2019 [facility] 100 mg 06/23/2019 12:00:00 AM EDT capsule 90 TAKE ONE CAPSULE BY MOUTH THREE TIMES A DAY TAKE ONE CAPSULE BY MOUTH THREE TIMES A DAY SOLD: 08/17/2019 [facility] 40 mg 06/22/2019 12:00:00 AM EDT tablet 180 TAKE ONE TABLET BY MOUTH TWICE A DAY TAKE ONE TABLET BY MOUTH TWICE A DAY SOLD: 06/22/2019 [facility] 25 mg 06/12/2019 12:00:00 AM EDT tablet 90 TAKE ONE TABLET BY MOUTH EVERY DAY TAKE ONE TABLET BY MOUTH EVERY DAY SOLD: 06/12/2019 [facility] 25 mg 06/12/2019 12:00:00 AM EDT tablet 90 TAKE ONE TABLET BY MOUTH EVERY DAY TAKE ONE TABLET BY MOUTH EVERY DAY SOLD: 09/08/2019 [facility] 200 mg 05/19/2019 12:00:00 AM EDT capsule 30 TAKE 1 CAPSULE BY MOUTH ONCE DAILY WITH FOOD MAXIMUM DAILY DOSE = 1 TAKE 1 CAPSULE BY MOUTH ONCE DAILY WITH FOOD MAXIMUM DAILY DOSE = 1 SOLD: 06/15/2019 [facility] 200 mg 05/19/2019 12:00:00 AM EDT capsule 30 TAKE 1 CAPSULE BY MOUTH ONCE DAILY WITH FOOD MAXIMUM DAILY DOSE = 1 TAKE 1 CAPSULE BY MOUTH ONCE DAILY WITH FOOD MAXIMUM DAILY DOSE = 1 SOLD: 07/12/2019 [facility] 200 mg 05/19/2019 12:00:00 AM EDT capsule 30 TAKE 1 CAPSULE BY MOUTH ONCE DAILY WITH FOOD MAXIMUM DAILY DOSE = 1 TAKE 1 CAPSULE BY MOUTH ONCE DAILY WITH FOOD MAXIMUM DAILY DOSE = 1 SOLD: 05/19/2019 [facility] 40 mg 05/02/2019 12:00:00 AM EST tablet,delayed release (DR/EC) 180 TAKE ONE TABLET BY MOUTH TWICE A DAY TAKE ONE TABLET BY MOUTH TWICE A DAY SOLD: 05/10/2019 [facility] 40 mg 05/02/2019 12:00:00 AM EST tablet,delayed release (DR/EC) 180 TAKE ONE TABLET BY MOUTH TWICE A DAY TAKE ONE TABLET BY MOUTH TWICE A DAY SOLD: 11/08/2019 [facility] 40 mg 05/02/2019 12:00:00 AM EST tablet,delayed release (DR/EC) 180 TAKE ONE TABLET BY MOUTH TWICE A DAY TAKE ONE TABLET BY MOUTH TWICE A DAY SOLD: 08/05/2019 [facility] 40 mg 04/22/2019 12:00:00 AM EST tablet 60 TAKE ONE TABLET BY MOUTH TWICE A DAY TAKE ONE TABLET BY MOUTH TWICE A DAY SOLD: 05/24/2019 [facility] 40 mg 04/22/2019 12:00:00 AM EST tablet 60 TAKE ONE TABLET BY MOUTH TWICE A DAY TAKE ONE TABLET BY MOUTH TWICE A DAY SOLD: 04/27/2019 [facility] Famotidine 40 MG Oral Tablet Famotidine 40 MG 04/10/2019 12:00:[address] active 1 tablet at bedtime eCW1 ([facility]) Doxycycline Monohydrate 100 MG Oral Capsule Doxycycline Mobile hydrate 04/05/2019 12:00:00 AM EST ORAL active M EDENT ([facility]) 2 mg/24 hour 04/04/2019 12:00:00 AM EST patch 24 hour 30 APPLY 1 PATCH TO THE SKIN DAILY APPLY 1 PATCH TO THE SKIN DAILY SOLD: 04/05/2019 [facility] 2 mg/24 hour 04/04/2019 12:00:00 AM EST patch 24 hour 30 APPLY 1 PATCH TO THE SKIN DAILY APPLY 1 PATCH TO THE SKIN DAILY SOLD: 05/01/2019 [facility] 100 mg 03/31/2019 12:00:00 AM EST capsule 90 1 CAP BY MOUTH BEDTIME X 5 DAYS;1 CAP 2X/DAY X 5 DAYS;1 CAP 3X/DAY THEREAFTER MAX 3/DAY 1 CAP BY MOUTH BEDTIME X 5 DAYS;1 CAP 2X/DAY X 5 DAYS;1 CAP 3X/DAY THEREAFTER MAX 3/DAY SOLD: 05/24/2019 [facility] 100 mg 03/31/2019 12:00:00 AM EST capsule 90 1 CAP BY MOUTH BEDTIME X 5 DAYS;1 CAP 2X/DAY X 5 DAYS;1 CAP 3X/DAY THEREAFTER MAX 3/DAY 1 CAP BY MOUTH BEDTIME X 5 DAYS;1 CAP 2X/DAY X 5 DAYS;1 CAP 3X/DAY THEREAFTER MAX 3/DAY SOLD: 03/31/2019 [facility] 100 mg 03/31/2019 12:00:00 AM EST capsule 90 1 CAP BY MOUTH BEDTIME X 5 DAYS;1 CAP 2X/DAY X 5 DAYS;1 CAP 3X/DAY THEREAFTER MAX 3/DAY 1 CAP BY MOUTH BEDTIME X 5 DAYS;1 CAP 2X/DAY X 5 DAYS;1 CAP 3X/DAY THEREAFTER MAX 3/DAY SOLD: 04/27/2019 [facility] 25 mg 02/23/2019 12:00:00 AM EST tablet 30 TAKE ONE TABLET BY MOUTH EVERY 8 HOURS NEEDED TAKE ONE TABLET BY MOUTH EVERY 8 HOURS NEEDED SOLD: 04/19/2019 [facility] 25 mg 02/23/2019 12:00:00 AM EST tablet 30 TAKE ONE TABLET BY MOUTH EVERY 8 HOURS NEEDED TAKE ONE TABLET BY MOUTH EVERY 8 HOURS NEEDED SOLD: 02/23/2019 [facility] 25 mg 02/23/2019 12:00:00 AM EST tablet 30 TAKE ONE TABLET BY MOUTH EVERY 8 HOURS NEEDED TAKE ONE TABLET BY MOUTH EVERY 8 HOURS NEEDED SOLD: 03/17/2019 [facility] 25 mg 02/23/2019 12:00:00 AM EST tablet 30 TAKE ONE TABLET BY MOUTH EVERY 8 HOURS NEEDED TAKE ONE TABLET BY MOUTH EVERY 8 HOURS NEEDED SOLD: 05/18/2019 [facility] 200 mg 02/04/2019 12:00:00 AM EST capsule 30 TAKE ONE CAPSULE BY MOUTH EVERY DAY WITH FOOD TAKE ONE CAPSULE BY MOUTH EVERY DAY WITH FOOD SOLD: 02/04/2019 [facility] 200 mg 02/04/2019 12:00:00 AM EST capsule 30 TAKE ONE CAPSULE BY MOUTH EVERY DAY WITH FOOD TAKE ONE CAPSULE BY MOUTH EVERY DAY WITH FOOD SOLD: 03/30/2019 [facility] 200 mg 02/04/2019 12:00:00 AM EST capsule 30 TAKE ONE CAPSULE BY MOUTH EVERY DAY WITH FOOD TAKE ONE CAPSULE BY MOUTH EVERY DAY WITH FOOD SOLD: 03/03/2019 [facility] 5 mg 01/30/2019 12:00:00 AM EST tablet 90 TAKE 1 TABLET BY MOUTH ONCE A DAY TAKE 1 TABLET BY MOUTH ONCE A DAY SOLD: 10/17/2019 [facility] 5 mg 01/30/2019 12:00:00 AM EST tablet 90 TAKE 1 TABLET BY MOUTH ONCE A DAY TAKE 1 TABLET BY MOUTH ONCE A DAY SOLD: 01/30/2019 [facility] 5 mg 01/30/2019 12:00:00 AM EST tablet 90 TAKE 1 TABLET BY MOUTH ONCE A DAY TAKE 1 TABLET BY MOUTH ONCE A DAY SOLD: 07/22/2019 [facility] 5 mg 01/30/2019 12:00:00 AM EST tablet 90 TAKE 1 TABLET BY MOUTH ONCE A DAY TAKE 1 TABLET BY MOUTH ONCE A DAY SOLD: 04/27/2019 [facility] 150 mg 01/24/2019 12:00:00 AM EST tablet 60 TAKE 1 TABLET BY MOUTH TWICE A DAY MOGUL OPERATOR AND BEFORE BEDTIME EMPTY STOMACH TAKE 1 TABLET BY MOUTH TWICE A DAY MOGUL OPERATOR AND BEFORE BEDTIME EMPTY STOMACH SOLD: 01/26/2019 [facility] 150 mg 01/23/2019 12:00:00 AM EST tablet 90 TAKE 1 TABLET BY MOUTH ONCE A DAY TAKE 1 TABLET BY MOUTH ONCE A DAY SOLD: 04/20/2019 [facility] 150 mg 01/23/2019 12:00:00 AM EST tablet 90 TAKE 1 TABLET BY MOUTH ONCE A DAY TAKE 1 TABLET BY MOUTH ONCE A DAY SOLD: 01/23/2019 [facility] 10 mg 01/17/2019 12:00:00 AM EST tablet 90 TAKE ONE TABLET BY MOUTH EVERY DAY IN THE MORNING TAKE ONE TABLET BY MOUTH EVERY DAY IN THE MORNING SOLD : 04/15/2019 [facility] 2 mg/24 hour 12/16/2018 12:00:00 AM EDT patch 24 hour 30 APPLY ONE PATCH TO THE SKIN ONCE A DAY APPLY ONE PATCH TO THE SKIN ONCE A DAY SOLD: 02/08/2019 [facility] 2 mg/24 hour 12/16/2018 12:00:00 AM EDT patch 24 hour 30 APPLY ONE PATCH TO THE SKIN ONCE A DAY APPLY ONE PATCH TO THE SKIN ONCE A DAY SOLD: 03/08/2019 [facility] atorvastatin 20 MG Oral Tablet ATORVASTATIN CALCIUM 10/14/2018 1 2:00:00 AM EDT tablet 90 TAKE ONE TABLET BY MOUTH EVERY D AY TAKE ONE TABLET BY MOUTH EVERY DAY SOLD: 04/06/2019 [facility] atorvastatin 20 MG Oral Tablet ATORVASTATIN CALCIUM 10/14/2018 1 2:00:00 AM EDT tablet 90 TAKE ONE TABLET BY MOUTH EVERY D AY TAKE ONE TABLET BY MOUTH EVERY DAY SOLD: 07/01/2019 [facility] 500 mg 09/18/2018 12:00:00 AM EDT tablet 120 TAKE TWO TABLETS BY MOUTH EVERY 12 HOURS NEEDED TAKE TWO TABLETS BY MOUTH EVERY 12 HOURS NEEDED DARYL [facility] 500 mg 09/18/2018 12:00:00 AM EDT tablet 120 TAKE TWO TABLETS BY MOUTH EVERY 12 HOURS NEEDED TAKE TWO TABLETS BY MOUTH EVERY 12 HOURS NEEDED DARYL [facility] Escitalopram 5 MG Oral Tablet ESCITALOPRAM OXALATE 09/12/2018 12 :00:00 AM EDT tablet 90 TAKE ONE TABLET BY MOUTH ONCE A DAY TAKE ONE TABLET BY MOUTH ONCE A DAY SOLD: 03/12/2019 [facility] 40 mg 08/05/2018 12:00:00 AM EDT tablet,delayed release (DR/EC) 180 TAKE ONE TABLET BY MOUTH TWICE A DAY TAKE ONE TABLET BY MOUTH TWICE A DAY SOLD: 01/26/2019 [facility] Insurance Providers Payer name Policy type / Coverage type Policy ID Covered green party ID Covered green party's relationship to gonzalez Policy Gonzalez Plan Information WELLCARE [id number] SP [id number] MEDICARE [id number] SP [id number] [facility] HEALTH CARE OPTIONS [id number] SP [id number] MEDICAID UNAVAILABLE UNAVAILA BLE ANSI-Medicare Part B [id number] ANSI-Commercial [id number] ANSI-Medicare Part B [id number] ANSI-Commercial [id number] ANSI-Commercial [id number] ANSI-Medicare Part B [id number] MEDICARE [id number] [employer] Medigap Part B [id number] Self [id number] [place] Medicare Primary [id number] Self [id number] ANSI-Commercial [id number] ANSI-Medicare Part B [id number] ANSI-Medicare Part B [id number] ANSI-Commercial [id number] ANSI-Medicare Part B [id number] ANSI-Commercial [id number] ANSI-Medicare Part B [id number] ANSI-Commercial [id number] [facility] [id number] Self [id number] Medicare [facility] Medicare Primary [id number] [facility] [id number] [facility] CARE OPTIONS [id number] SP [id number] MEDICARE [id number] SP [id number] A ANSI-Medicare Part B [id number] ANSI-Commercial [id number] ANSI-Commercial [id number] ANSI-Medicare Part B [id number] ANSI-Commercial [id number] ANSI-Medicare Part B [id number] [employer] Medigap Part B [id number] Self [id number] Medicare [facility] Medicare Primary [id number] Self [id number] [employer] Medigap Part B [id number] Self [id number] Medicare [facility] Medicare Primary [id number] Self [id number] Today's Options Medicare Commercial [id number] Self [id number] TODAYS OPTIONS [id number] SP [id number] [employer] Medigap Part B [id number] Self [id number] Medicare [facility] Medicare Primary [id number] Self [id number] Today's Options Medicare Commercial [id number] Self [id number] Todays Options Commercial [id number] Self [id number] [facility] Medigap Part B [id number] Self [id number] Todays Options Commercial [id number] Self [id number] [employer] Medigap Part B [id number] Self [id number] Medicare [facility] Medicare Primary [id number] Self [id number] Today's Options Medicare Commercial [id number] Self [id number] [facility] Option [id number] 0 [id number] Medicare Part B [facility] [id number] 0 [id number] HU[employer] CLAIMS (PFFS) [id number] [facility] [id number] [employer] Medigap Part B [id number] Self [id number] Medicare [facility] Medicare Primary [id number] Self [id number] Today's Options Medicare Commercial [id number] Self [id number] Todays Options Commercial [id number] Self [id number] [employer] Options Commercial [id number] Self [id number] [employer] Options Commercial [id number] Self [id number] TODAYS OPTIONS [id number] SP [id number] TODAYS OPTIONS [id number] SP [id number] [employer] Medigap Part B Self [place] Medicare Primary Self Today's Options Medicare Commercial Self TODAYS OPTIONS [id number] SP [id number] [employer] [facility] OPTIONS [id number] SP [id number] [facility] Options Medigap Part B Self Medicare [facility] Medicare Primary Self AARP O [id number] S [id number] MEDICARE C [id number] S [id number] A MEDICARE [id number] SP [id number] [employer] PPO [id number] SP [id number] HU[employer]NA GOLD [id number] SP [id number] [employer] PPO [id number] SP [id number] Problems, Conditions, and Diagnoses Code Display Name Description Problem Type Effective Dates Data Source(s) J30.2 [id number] Seasonal allergies Problem 07/30/2019 12:00: 00 AM EDT eCW1 ([facility]) 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 Problem 03/17/2019 12:00:00 AM EST eCW1 ([facility]) Surgeries/Procedures Procedure Description Date Indications Data Source(s) MRI BRAIN BRAIN STEM W/O CONTRAST MATERIAL 06/26/2019 12:00:00 AM EDT MEDENT ([facility], ) MRI BRAIN BRAIN STEM W/O CONTRAST MATERIAL 06/26/2019 12:00:00 AM EDT MEDENT ([facility], ) ELECTROENCEPHALOGRAM W/REC AWAKE&ASLEEP 06/25/2019 12: 00:00 AM EDT MEDENT ([facility], ) ELECTROENCEPHALOGRAM W/REC AWAKE&ASLEEP 06/25/2019 12: 00:00 AM EDT MEDENT ([facility], ) Office Visit, Est Pt., Level 2 FC 03/17/2019 12:00:00 AM EST eCW1 ([facility]) Office Visit, Est Pt., Level 4 PC 03/17/2019 12:00:00 AM EST eCW1 ([facility]) Results ID Date Data Source [id number] 08/24/2019 08:20:00 AM EDT [facility] Name Value Range Interpretation Code Description Data Gina rce(s) Supporting Document(s) SARS-CoV-2 (COVID-19) [facility] This lab was ordered by [facility] and [place] in Medicine, [facility] and reported by [facility]. ID Date Data Source Basic Metabolic Profile (BMP) 03/17/2019 12:00:00 AM EST eCW 1 ([facility]) Name Value Range Interpretation Code Description Data Gina rce(s) Supporting Document(s) 82 70-100 GLUCOSE, FASTING eCW1 ([facility]) 22 7-18 BLOOD UREA NITROGEN eCW1 ([facility]) 135 136-145 SODIUM LEVEL eCW1 ([facility]) 58.0 >39 GLOMERULAR FILTRATION RATE eCW 1 ([facility]) 1.00 0.55-1.30 CREATININE FOR GFR eCW1 ([facility]) 27 21-32 CARBON DIOXIDE LEVEL eCW1 ([facility]) 101 98-107 CHLORIDE LEVEL eCW1 ([facility]) 4.7 3.5-5.1 POTASSIUM SERUM eCW1 ([facility]) 8.9 8.8-10.2 CALCIUM LEVEL eCW1 ([facility]) Procedure Social History Code Duration Value Status Description Data Source(s ) Smoking 08/04/2019 12:00:00 AM EDT Never Smoker completed Never S moker eCW1 ([facility]) Smoking 08/04/2019 12:00:00 AM EDT Never Smoker completed Never S moker eCW1 ([facility]) Smoking 08/04/2019 12:00:00 AM EDT Never Smoker completed Never S moker eCW1 ([facility]) Smoking 08/04/2019 12:00:00 AM EDT Never Smoker completed Never S moker eCW1 ([facility]) Smoking 08/04/2019 12:00:00 AM EDT Never Smoker completed Never S moker eCW1 ([facility]) Smoking 08/04/2019 12:00:00 AM EDT Never Smoker completed Never S moker eCW1 ([facility]) Vital Signs ID Date Data Source UNK Name Value Range Interpretation Code Description Data Source(s) Jeannette body weight 110 [lb_av] 110 [lb_av] MEDEN T ([facility], ) Body mass index (BMI) [Ratio] 36.0 kg/m2 36.0 k g/m2 MEDENT ([facility], ) Body weight 200.00 [lb_av] 200.00 [lb_av] MEDEN T ([facility], ) Body height 62.5 [in_i] 62.5 [in_i] MEDENT ([facility], ) 5'2.50" Respiratory rate 12 /min 12 /min MEDENT ( [facility], ) Jeannette body weight 110 [lb_av] 110 [lb_av] MEDEN T ([facility], ) Body mass index (BMI) [Ratio] 36.0 kg/m2 36.0 k g/m2 MEDENT ([facility], ) Body weight 200.00 [lb_av] 200.00 [lb_av] MEDEN T ([facility], ) Body height 62.5 [in_i] 62.5 [in_i] MEDENT ([facility], ) 5'2.50" Respiratory rate 12 /min 12 /min MEDENT ( [facility]) Diastolic blood pressure 89 mm[Hg] 89 mm[Hg] eCW1 ([facility]) Systolic blood pressure 135 mm[Hg] 135 mm[Hg] e CW1 ([facility]) Body temperature 98.4 [degF] 98.4 [degF] eCW1 ( [facility]) Respiratory rate 20 /min 20 /min eCW1 ([facility]) Heart rate 80 /min 80 /min eCW1 ([facility]) Body mass index (BMI) [Ratio] 40.43 kg/m2 40.43 kg/m2 eCW1 ([facility]) Body height 61 [in_i] 61 [in_i] eCW1 ([facility]) Body weight 214 [lb_av] 214 [lb_av] eCW1 ([facility]) Body mass index (BMI) [Ratio] 36.0 kg/m2 36.0 k g/m2 MEDENT ([facility], ) Body weight 200.00 [lb_av] 200.00 [lb_av] MEDEN T ([facility], ) Body height 62.5 [in_i] 62.5 [in_i] MEDENT ([facility], ) 5'2.50" Respiratory rate 12 /min 12 /min MEDENT ( [facility], ) Body mass index (BMI) [Ratio] 30.1 kg/m2 30.1 k g/m2 MEDENT ([facility], [facility]) Body height 60 [in_i] 60 [in_i] MEDENT ([facility]) 5'0" Body weight 154.00 [lb_av] 154.00 [lb_av] MEDEN T ([facility]) Body temperature 99.0 [degF] 99.0 [degF] MEDENT ([facility]) Oxygen saturation in Arterial blood by Pulse oximetry 97 % 97 % MEDENT ([facility]) Respiratory rate 14 /min 14 /min MEDENT ( [facility]) Heart rate 89 /min 89 /min MEDENT ([facility], [facility]) Diastolic blood pressure 92 mm[Hg] 92 mm[Hg] MEDENT ([facility]) Systolic blood pressure 128 mm[Hg] 128 mm[Hg] M EDENT ([facility]) Body mass index (BMI) [Ratio] 36.0 kg/m2 36.0 k g/m2 MEDENT ([facility], ) Body weight 200.00 [lb_av] 200.00 [lb_av] MEDEN T ([facility], ) Body height 62.5 [in_i] 62.5 [in_i] MEDENT ([facility], ) 5'2.50" Respiratory rate 12 /min 12 /min MEDENT ( [facility], ) Heart rate 72 /min 72 /min MEDENT ([facility], ) Diastolic blood pressure 66 mm[Hg] 66 mm[Hg] MEDENT ([facility], ) Systolic blood pressure 138 mm[Hg] 138 mm[Hg] M EDENT ([facility], ) Diastolic blood pressure 64 mm[Hg] 64 mm[Hg] eCW1 ([facility]) Systolic blood pressure 129 mm[Hg] 129 mm[Hg] e CW1 ([facility]) Body temperature 97.0 [degF] 97.0 [degF] eCW1 ( [facility]) Respiratory rate 18 /min 18 /min eCW1 ([facility]) Heart rate 83 /min 83 /min eCW1 ([facility]) Body mass index (BMI) [Ratio] 37.45 kg/m2 37.45 kg/m2 eCW1 ([facility]) Body height 61 [in_us] 61 [in_us] eCW1 ([facility]) Body weight Measured 198.2 [lb_av] 198.2 [lb_av ] eCW1 ([facility]) Patient Treatment Plan of Care Planned Activity Planned Date Details Description Data Source (s) Famotidine 40 MG Oral Tablet 04/10/2019 12:00:00 AM EST eCW1 ([facility])
--- OUTSIDE RECORDS SUMMARY | 2020-03-24 19:30 | CCD | Continuity of Care Document ---
Author Author Monisha OROSCO M.D. Organization Unknown Address [address] [place] [address] Phone [phone] Care Team Providers Care Assistant Project Manager Name Role Phone Edinson Burnett M.D. AUTM [phone] Problems Active Problems Provider Date Dementia Jamel [...] lb BMI (Body Mass Index) 36.0 kg/m2 [place] Body Weight 110 lb 11/16/2019 10:21am Respiratory Rate 12 /min Height 62.5 inches 5'2.50" Weight 200.00 lb BMI (Body Mass Index) 36.0 kg/m2 [facility] Weight 110 lb Results Description No Information Available Procedures Description No Information Available Medical Devices Description No Information Available Encounters Type Date Location Provider Dx Diagnosis Office Visit 02/23/2020 11:15a Main office - Aftonalida quispe M.D. G30.1 Alzheimer's disease with late onset Office Visit 11/16/2019 10:15a Main office - Leydi quispe M.D. G30.1 Alzheimer's disease with late [...]
[2020-03-24] MEDS ORDERED: NS 1,000 ML IV ONE (20:45)
--- OUTSIDE RECORDS SUMMARY | 2020-03-24 20:48 | CCD ---
Author Author [facility] Organization [facility] Address Unknown Phone Unavailable Care Team Providers Care Unix Engineer Name Role Phone GOLDYNOELLE PA Unavailable Unavailable GOLDY, NOELLE PA Unavailable Unavailable GOLDY, NOELLE PA Unavailable Unavailable GOLDY, NOELLE PA Unavailable Unavailable GOLDY, NOELLE PA Unavailable Unavailable GOLDY, NOELLE PA Unavailable Unavailable GOLDY, NOELLE PA Unavailable Unavailable GOLDY, NOELLE PA Unavailable Unavailable GOLDY, NOELLE PA Unavailable Unavailable GOLDY, NOELLE PA Unavailable Unavailable GOLDY, NOELLE PA Unavailable Unavailable GOLDY, NOELLE PA Unavailable Unavailable OGLDY, NOELLE PA Unavailable Unavailable GOLDY, NOELLE PA [...] is protected by Article 27-F of the [facility] Public Health law. If you continue you may have access to information: Regarding HIV / AIDS; Provided by facilities licensed or operated by the [facility] Office of Mental Health; or Provided by the [facility] Office for People With Developmental Disabilities. If such information is present, then the following [facility] mandated warning applies: This information has been [...] law may result in a fine or senior care sentence or both. A general authorization for the release of medical or other information is NOT sufficient authorization for further disc losure. Allergies and Adverse Reactions Type Description Substance Reaction Status Data Source(s ) Drug allergy Tramadol HCl Tramadol dizzy/vomiting w hen given a tab by of his Tramadol Active eCW1 ([facility]) Codeine Sulfate Codeine Sulfate Codeine Sulfate passed out with it in tylenol Active [facility] ([facility]) Family History Family Member Name Family Member Gender Family Member Status Date o f Status Description Data Source(s) Unknown Unknown Problem MEDENT ([facility]) Unknown Unknown Problem MEDENT ([facility]) Unknown Unknown Problem MEDENT ([facility]) Unknown Unknown Problem MEDENT ([facility]) Encounters Encounter Providers Location Date Indications Data Source(s ) Unknown [address] [facility] [address] 03/01/2020 12:00:00 AM EST eCW1 ([facility]) Outpatient Attender: Jamel Stoner MD Main office - [facility] 02/23/2020 10:15:00 AM EST MEDENT ([facility]) Unknown [address] [facility] [address] 01/19/2020 12:00:00 AM EST eCW1 ([facility]) [place] [address] [facility] [place] [address] 01/04/2020 12:00:00 AM EST eCW1 ([facility]) Outpatient Attender: Jamel Stoner MD [facility] 11/16/2019 10:15:00 AM EDT MEDENT ([facility]) Unknown [address] [facility] [address] 08/16/2019 12:00:00 AM EDT eCW1 ([facility]) TeleMedicine Est. Pt. Level 3 [address] [place] [address] 08/04/2019 12:00:00 AM EDT eCW1 ([facility]) Outpatient Attender: Jamel Stoner MD [facility] 06/23/2019 11:00:00 AM EDT MEDENT ([facility] ) [facility] [place] [address] [facility] [address] 06/23/2019 12:00:00 AM EDT eCW1 ([facility]) Outpatient [address] [facility] [place] [address] 06/16/2019 12:00:00 AM EDT eCW1 ([facility]) [facility] [address] [facility] [place] [address] 06/12/2019 12:00:00 AM EDT eCW1 ([facility]) [facility] [place] [address] [facility] [place] [address] 04/10/2019 12:00:00 AM EST eCW1 ([facility]) Outpatient Attender: NOELLE rao 04/05/2019 01:50:00 PM EST MEDENT ([facility] [address] [facility] [place] [address] 03/17/2019 12:00:00 AM EST eCW1 ([facility] [address] [facility], [facility] [address] 02/23/2019 12:00:00 AM EST eCW1 ([facility]) Medications Medication Brand Name Start Date Product [...] DAILY DOSE = 1 SOLD: 01/20/2020 Sangeetha brwon Escitalopram 5 MG Oral Tablet ESCITALOPRAM OXALATE 12/18/2019 12 :00:00 AM EDT tablet 90 TAKE ONE TABLET BY MOUTH EVERY D AY TAKE ONE TABLET BY MOUTH EVERY DAY SOLD: 12/18/2019 [facility] Escitalopram 5 MG Oral Tablet [...] 06/23/2019 12:00:00 AM EDT active M LYRICENT ([facility] ) 4.6 mg/24 hr 06/23/2019 [...] ST active 1 tablet at bedtime eCW1 ([facility]) Doxycycline Monohydrate 100 MG Oral Capsule Doxycycline [place] hydrate 04/05/2019 12:00:00 AM EST ORAL active M EDENT ([facility]) 2 mg/24 hour 04/04/2019 12:00:00 AM EST [...] 1 TABLET BY MOUTH TWICE A DAY EQUIPMENT ASSOCIATE AND BEFORE BEDTIME EMPTY STOMACH TAKE 1 TABLET BY MOUTH TWICE A DAY EQUIPMENT ASSOCIATE AND BEFORE BEDTIME EMPTY STOMACH SOLD: 01/26/2019 [...] type / Coverage type Policy ID Covered constitution party ID Covered constitution party's relationship to gonzalez Policy Gonzalez Plan Information WELLCARE [id number] SP [id number] MEDICARE [id number] SP [id number] [facility] OPTIONS [id number] SP [id number] MEDICAID UNAVAILABLE UNAVAILA BLE ANSI-Medicare Part B [id number] ANSI-Commercial [id number] ANSI-Medicare Part B [id number] ANSI-Commercial [id number] ANSI-Commercial [id number] ANSI-Medicare Part B [id number] MEDICARE [id number] A [employer] Medigap Part B [id number] Self [id number] [place] Medicare Primary [id number] Self [id number] ANSI-Commercial [id number] ANSI-Medicare Part B [id number] ANSI-Medicare Part B [id number] ANSI-Commercial [id number] ANSI-Medicare Part B [id number] ANSI-Commercial [id number] ANSI-Medicare Part [id number] ANSI-Commercial [id number] [facility] Part [facility] [id number] Self [id number] Medicare [facility] Medicare Primary [id number] [facility] [id number] [facility] CARE OPTIONS [id number] SP [id number] MEDICARE [id number] SP [id number] A ANSI-Medicare Part B [id number] ANSI-Commercial [id number] ANSI-Commercial [id number] ANSI-Medicare Part B [id number] ANSI-Commercial [id number] ANSI-Medicare Part B [id number] [employer] Medigap Part B [id number] Self [id number] Medicare [facility] Medicare Primary [id number] Self [id number] Aarp Medigap Part B [id number] Self [id number] Medicare [facility] Medicare Primary [id number] Self [id number] Today's Options Medicare Commercial [id number] Self [id number] TODAYS OPTIONS [id number] SP [id number] [employer] Medigap Part B [id number] Self [id number] Medicare [facility] Medicare Primary [id number] Self [id number] Today's Options Medicare Commercial [id number] Self [id number] Todays Options Commercial [id number] Self [id number] [facility] Medigap Part B [id number] Self [id number] Todays Options Commercial [id number] Self [id number] Aarp Medigap Part B [id number] Self [id number] Medicare [facility] Medicare Primary [id number] Self [id number] Today's Options Medicare Commercial [id number] Self [id number] [facility] Option [id number] 0 [id number] Medicare Part B [facility] [id number] 0 [id number] HUMANA CLAIMS (PFFS) [id number] [facility] [id number] Aarp Medigap Part B [id number] Self [id number] Medicare [facility] Medicare Primary [id number] Self [id number] Today's Options Medicare Commercial [id number] Self [id number] Todays Options Commercial [id number] Self [id number] Todays Options Commercial [id number] Self [id number] Todays Options Commercial [id number] Self [id number] TODAYS OPTIONS [id number] SP [id number] TODAYS OPTIONS [id number] SP [id number] [employer] Medigap Part B Self [place] Medicare Primary Self Today's Options Medicare Commercial Self TODAYS OPTIONS [id number] SP [id number] AARP HEALTH CARE OPTIONS [id number] SP [id number] [employer] Options Medigap Part B Self Medicare [facility] Medicare Primary Self AARP O [id number] S [id number] MEDICARE C [id number] S [id number] A MEDICARE [id number] SP [id number] HUMANA PPO [id number] SP [id number] HUMANA GOLD [id number] SP [id number] HUMANA PPO [id number] SP [id number] Problems, Conditions, and Diagnoses Code Display Name Description Problem Type Effective Dates Data Source(s) J30.2 [id number] Seasonal allergies Problem 07/30/2019 12:00: 00 AM EDT eCW1 ([facility]) 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 Problem 03/17/2019 12:00:00 AM EST eCW1 ([facility]) Surgeries/Procedures Procedure Description Date Indications Data Source(s) MRI BRAIN BRAIN STEM W/O CONTRAST MATERIAL 06/26/2019 12:00:00 AM EDT MEDENT ([facility] ) MRI BRAIN BRAIN STEM W/O CONTRAST MATERIAL 06/26/2019 12:00:00 AM EDT MEDENT ([facility] ) ELECTROENCEPHALOGRAM W/REC AWAKE&ASLEEP 06/25/2019 12: 00:00 AM EDT MEDENT ([facility], ) ELECTROENCEPHALOGRAM W/REC AWAKE&ASLEEP 06/25/2019 12: 00:00 AM EDT MEDENT ([facility], ) Office Visit, Est Pt., Level 2 FC 03/17/2019 12:00:00 AM EST eCW1 ([facility]) Office Visit, Est Pt., Level 4 PC 03/17/2019 12:00:00 AM EST eCW1 ([facility]) Results ID Date Data Source [id number] 08/24/2019 08:20:00 AM EDT [facility] Name Value Range Interpretation Code Description Data Gina rce(s) Supporting Document(s) SARS-CoV-2 (COVID-19) [facility] This lab was ordered by [facility] Benton and [facility]aw[facility] in Medicine, [facility] and reported by [facility]. ID Date Data Source Basic Metabolic Profile (BMP) 03/17/2019 12:00:00 AM EST eCW 1 ([facility]) Name Value Range Interpretation Code Description Data Gina rce(s) Supporting Document(s) 82 70-100 GLUCOSE, FASTING eCW1 ([facility]) 22 7-18 BLOOD UREA NITROGEN eCW1 ([facility]) 135 136-145 SODIUM LEVEL eCW1 ([facility]) 58.0 >39 GLOMERULAR FILTRATION RATE eCW 1 ([facility]) 1.00 0.55-1.30 CREATININE FOR GFR eCW1 ([facility]) 27 21-32 CARBON DIOXIDE LEVEL eCW1 ([facility]) 101 98-107 CHLORIDE LEVEL eCW1 ([facility]) 4.7 3.5-5.1 POTASSIUM SERUM eCW1 ([facility]) 8.9 8.8-10.2 CALCIUM LEVEL eCW1 ([facility]) Procedure Social History Code Duration Value Status Description Data Source(s ) Smoking 08/04/2019 12:00:00 AM EDT Never Smoker completed Never S moker eCW1 ([facility]) Smoking 08/04/2019 12:00:00 AM EDT Never Smoker completed Never S moker eCW1 ([facility]) Smoking 08/04/2019 12:00:00 AM EDT Never Smoker completed Never S moker eCW1 ([facility]) Smoking 08/04/2019 12:00:00 AM EDT Never Smoker completed Never S moker eCW1 ([facility]) Smoking 08/04/2019 12:00:00 AM EDT Never Smoker completed Never S moker eCW1 ([facility]) Smoking 08/04/2019 12:00:00 AM EDT Never Smoker completed Never S moker eCW1 ([facility]) Vital Signs ID Date Data Source UNK Name Value Range Interpretation Code Description Data Source(s) Gause body weight 110 [lb_av] 110 [lb_av] MEDEN T ([facility], ) Body mass index (BMI) [Ratio] 36.0 kg/m2 36.0 k g/m2 MEDENT ([facility], ) Body weight 200.00 [lb_av] 200.00 [lb_av] MEDEN T ([facility], ) Body height 62.5 [in_i] 62.5 [in_i] MEDENT ([facility], ) 5'2.50" Respiratory rate 12 /min 12 /min MEDENT ( [facility], ) Gause body weight 110 [lb_av] 110 [lb_av] MEDEN T ([facility], ) Body mass index (BMI) [Ratio] 36.0 kg/m2 36.0 k g/m2 MEDENT ([facility], ) Body weight 200.00 [lb_av] 200.00 [lb_av] MEDEN T ([facility], ) Body height 62.5 [in_i] 62.5 [in_i] MEDENT ([facility], ) 5'2.50" Respiratory rate 12 /min 12 /min MEDENT ( [facility]) Diastolic blood pressure 89 mm[Hg] 89 mm[Hg] eCW1 ([facility]) Systolic blood pressure 135 mm[Hg] 135 mm[Hg] e CW1 ([facility]) Body temperature 98.4 [degF] 98.4 [degF] eCW1 ( [facility]) Respiratory rate 20 /min 20 /min eCW1 ([facility]) Heart rate 80 /min 80 /min eCW1 ([facility]) Body mass index (BMI) [Ratio] 40.43 kg/m2 40.43 kg/m2 eCW1 ([facility]) Body height 61 [in_i] 61 [in_i] eCW1 ([facility]) Body weight 214 [lb_av] 214 [lb_av] eCW1 ([facility]) Body mass index (BMI) [Ratio] 36.0 kg/m2 36.0 k g/m2 MEDENT ([facility], ) Body weight 200.00 [lb_av] 200.00 [lb_av] MEDEN T ([facility], ) Body height 62.5 [in_i] 62.5 [in_i] MEDENT ([facility], ) 5'2.50" Respiratory rate 12 /min 12 /min MEDENT ( [facility], ) Body mass index (BMI) [Ratio] 30.1 kg/m2 30.1 k g/m2 MEDENT ([facility]) Body height 60 [in_i] 60 [in_i] MEDENT ([facility]) 5'0" Body weight 154.00 [lb_av] 154.00 [lb_av] MEDEN T ([facility]) Body temperature 99.0 [degF] 99.0 [degF] MEDENT ([facility]) Oxygen saturation in Arterial blood by Pulse oximetry 97 % 97 % MEDENT ([facility]) Respiratory rate 14 /min 14 /min MEDENT ( [facility]) Heart rate 89 /min 89 /min MEDENT ([facility]) Diastolic blood pressure 92 mm[Hg] 92 mm[Hg] MEDENT ([facility]) Systolic blood pressure 128 mm[Hg] 128 mm[Hg] M EDENT ([facility]) Body mass index (BMI) [Ratio] 36.0 kg/m2 36.0 k g/m2 MEDENT ([facility], ) Body weight 200.00 [lb_av] 200.00 [lb_av] MEDEN T ([facility], ) Body height 62.5 [in_i] 62.5 [in_i] MEDENT ([facility], ) 5'2.50" Respiratory rate 12 /min 12 /min MEDENT ( [facility], ) Heart rate 72 /min 72 /min MEDENT ([facility], ) Diastolic blood pressure 66 mm[Hg] 66 mm[Hg] MEDENT ([facility], ) Systolic blood pressure 138 mm[Hg] 138 mm[Hg] M EDENT ([facility], ) Diastolic blood pressure 64 mm[Hg] 64 mm[Hg] eCW1 ([facility]) Systolic blood pressure 129 mm[Hg] 129 mm[Hg] e CW1 ([facility]) Body temperature 97.0 [degF] 97.0 [degF] eCW1 ( [facility]) Respiratory rate 18 /min 18 /min eCW1 ([facility]) Heart rate 83 /min 83 /min eCW1 ([facility]) Body mass index (BMI) [Ratio] 37.45 kg/m2 37.45 kg/m2 eCW1 ([facility]) Body height 61 [in_us] 61 [in_us] eCW1 ([facility]) Body weight Measured 198.2 [lb_av] 198.2 [lb_av ] eCW1 ([facility]) Patient Treatment Plan of Care Planned Activity Planned Date Details Description Data Source (s) Famotidine 40 MG Oral Tablet 04/10/2019 12:00:00 AM EST eCW1 ([facility])
[2020-03-24 21:25] LABS: BASO # 0.1 10^3/uL (0.0-0.2); BASO % 0.6 % (0.0-1.0); EOS # 0.3 10^3/uL (0.0-0.5); EOS % 1.9 % (0.0-3.0); HEMATOCRIT 36.8 % (36.0-47.0); HEMOGLOBIN 11.4 g/dl (12.0-15.5); LYMPH # 1.2 10^3/uL (1.5-5.0); LYMPH % 8.3 % (24.0-44.0); MEAN CORPUSCULAR HEMOGLOBIN 28.7 pg (27.0-33.0); MEAN CORPUSCULAR VOLUME 92.7 fl (80.0-96.0); MONO # 0.9 10^3/uL (0.0-0.8); MONO % 6.5 % (0.0-5.0); NEUTROPHILS # 11.7 10^3/uL (1.5-8.5); PLATELET COUNT, AUTOMATED 328 10^3/uL (150-450); RED BLOOD COUNT 3.97 10^6/uL (4.00-5.40); WHITE BLOOD COUNT 14.3 10^3/uL (4.0-10.0)
[2020-03-24 21:53] LABS: ALBUMIN 3.9 GM/DL (3.2-5.2); ALT/SGPT 18 U/L (12-78); BILIRUBIN,DIRECT < 0.1 MG/DL (0.0-0.2); BILIRUBIN,TOTAL 0.3 MG/DL (0.2-1.0); BLOOD UREA NITROGEN 12 MG/DL (7-18); CARBON DIOXIDE LEVEL 29 MEQ/L (21-32); CHLORIDE LEVEL 101 MEQ/L (98-107); CK-MB VALUE MASS 2.2 NG/ML (<3.6); CPK CREATINE PHOSPHOKINASE 94 U/L (26-192); CREATININE FOR GFR 0.94 MG/DL (0.55-1.30); GLOMERULAR FILTRATION RATE > 60.0 (>39); GLUCOSE, FASTING 124 MG/DL (70-100); LIPASE 116 U/L (73-393); MB/CK RELATIVE INDEX 2.34 (< OR =4); POTASSIUM SERUM 4.1 MEQ/L (3.5-5.1); SODIUM LEVEL 138 MEQ/L (136-145); TOTAL PROTEIN 7.7 GM/DL (6.4-8.2); TROPONIN I < 0.02 NG/ML (< 0.10)
[2020-03-24 22:06] LABS: RSV AMPLIFICATION NEGATIVE (NEGATIVE)
[2020-03-24] MEDS ORDERED: ISOVUE-370 76% 100ML VIAL As Ordered ONE (22:25)
[2020-03-24] MEDS ORDERED: EXEL4.6D TOP (22:52)
[2020-03-24] MEDS ORDERED: CELE1CAP4 PO (22:52)
[2020-03-24] MEDS ORDERED: GABA-1171 PO (22:52)
[2020-03-24] MEDS ORDERED: IBUP-1022 PO (22:52)
--- NOTE | 2020-03-24 23:22 | REPVR ---
PROCEDURE INFORMATION: Exam: CT Chest With Contrast; Diagnostic Exam date and time: 03/24/2020 10:41 PM Age: 74 years old Clinical indication: Shortness of breath; Additional info: SOB, abd pain, n/v/d TECHNIQUE: Imaging protocol: Diagnostic computed tomography of the chest with intravenous contrast. Radiation optimization: All CT scans at this facility use at least one of these dose optimization techniques: automated exposure control; mA and/or kV adjustment per patient size (includes targeted exams where dose is matched to clinical indication); or iterative reconstruction. Contrast material: ISOVUE 370; Contrast volume: 100 ml; Contrast route: INTRAVENOUS (IV); COMPARISON: CT Chest without contrast 11/21/2015 4:56 PM FINDINGS: Thyroid: 1.6 cm heterogeneous nodule in the left lobe of the thyroid gland. Lungs: No focal areas of consolidation. No masses. Pleural space: No pleural effusion or pneumothorax. Heart: Mild calcifications of the coronary arteries. Aorta: Mild atherosclerotic calcifications of the aorta. Lymph nodes: No enlarged lymph nodes. Bones/joints: Multilevel mild degenerative changes of the visualized spine. No acute fracture. Soft tissues: Unremarkable. IMPRESSION: 1. No acute findings in the thorax. 2. 1.6 cm heterogeneous nodule in the left lobe of the thyroid gland. Recommend further evaluation with nonemergent thyroid ultrasound. 3. Chronic findings, as above. COMMENTS: Consistent with the [employer] [employer]'s Incidental Findings Committee white paper (J Am Tejas Radiol 2015): In patients aged 35 years and older with an incidental thyroid nodule equal to or greater than 1.[address], MRI or extrathyroidal US, further evaluation with dedicated thyroid US is recommended for patients with normal life expectancy and without comorbidities. For smaller nodules without suspicious features, no further evaluation or follow up is recommended. Electronically signed by: Christofer Varma On 03/24/2020 23:22:38 PM
--- NOTE | 2020-03-24 23:26 | REPVR ---
PROCEDURE INFORMATION: Exam: CT Abdomen And Pelvis With Contrast Exam date and time: 03/24/2020 10:41 PM Age: 74 years old Clinical indication: Nausea and vomiting; Abdominal pain; Additional info: SOB, abd pain, n/v/d TECHNIQUE: Imaging protocol: Computed tomography of the abdomen and pelvis with intravenous contrast. Radiation optimization: All CT scans at this facility use at least one of these dose optimization techniques: automated exposure control; mA and/or kV adjustment per patient size (includes targeted exams where dose is matched to clinical indication); or iterative reconstruction. Contrast material: ISOVUE 370; Contrast volume: 100 ml; Contrast route: INTRAVENOUS (IV); COMPARISON: CR HIPS BILAT W-AP PELVIS 12/09/2018 4:50 PM FINDINGS: Liver: Unremarkable. Gallbladder and bile ducts: Unremarkable. No ductal dilation. Pancreas: Unremarkable. No ductal dilation. Spleen: Unremarkable. Adrenal glands: Normal. No mass. Kidneys and ureters: No hydronephrosis or stones. Stomach and bowel: Stomach is unremarkable. No small bowel obstruction. Large bowel is unremarkable. Appendix: No evidence of appendicitis. Intraperitoneal space: No pneumoperitoneum. No significant fluid collection. Vasculature: Atherosclerotic calcifications of the aorta and major branches. Lymph nodes: No enlarged lymph nodes. Urinary bladder: Unremarkable as visualized. Reproductive: Unremarkable as visualized. Bones/joints: Multilevel degenerative changes of the visualized spine. No acute osseous lesion or fracture. Total right hip arthroplasty. Soft tissues: Unremarkable. IMPRESSION: 1. No acute intra-abdominal findings. 2. Chronic findings, as above. Electronically signed by: Christofer Varma On 03/24/2020 23:26:20 PM
[2020-03-25 00:35] VITALS: BP 150/90
--- NOTE | 2020-03-25 09:26 | ED PDOC ---
Post-Departure Follow-Up dr herbert faxed formal report of ct chest for fu Geraldine Santiago MD Mar 25, 2020 09:26
--- NOTE | 2020-03-25 20:51 | ECGEPIP ---
[facility] - ED Test Date: 2020-03-24 Pat Name: DENI AGUILAR Department: Room: - Gender: Female [employer]: NIDHI : 1945 Requested By: BERTRAM Gil Order Number: [id number] Reading MD: Sylvia Leblanc Measurements Intervals Norris Rate: 68 P: 14 VA: 158 QRS: -31 QRSD: 101 T: 14 QT: 430 QTc: 460 Interpretive Statements SINUS RHYTHM MARKED LEFT AXIS DEVIATION NSTTW abnormalities Electronically Signed on 03-25-2020 20:50:45 EST by Sylvia Leblanc
== END 2020-03-25 00:37 | disposition home or self-care (01) ==
LOC: M ED 19:25
DX: K52.9 Noninfective gastroenteritis and colitis, unspecified (principal); S70.01XA Contusion of right hip, initial encounter; X58.XXXA Exposure to other specified factors, initial encounter; Y92.89 Other specified places as the place of occurrence of the external cause; I10 Essential (primary) hypertension; J44.9 Chronic obstructive pulmonary disease, unspecified; G30.9 Alzheimer's disease, unspecified; K22.70 Barrett's esophagus without dysplasia; E78.5 Hyperlipidemia, unspecified; Z88.5 Allergy status to narcotic agent; Z79.899 Other long term (current) drug therapy
CPT/HCPCS: 36415; 71260; 74177; 80048; 80076; 81001; 82550; 82553; 83605; 83690; 84484; 85025; 87631; 93005; 93041; 96360; 96361; 99284; Q9967

== ENCOUNTER → 2020-08-16 | Outpatient (REF) | payer MEDICARE ==
[~2020-08-16] MED LIST changes: +CELE1CAP4 PO; +EXEL4.6D TOP; +GABA-1171 PO; +IBUP-1022 PO
[2020-08-16 14:52] LABS: BLOOD UREA NITROGEN 19 MG/DL (7-18); CALCIUM LEVEL 9.2 MG/DL (8.8-10.2); CARBON DIOXIDE LEVEL 29 MEQ/L (21-32); CHLORIDE LEVEL 107 MEQ/L (98-107); CHOLESTEROL LEVEL 165 MG/DL (<200); CHOLESTEROL RISK RATIO 3.837 (<5); CREATININE FOR GFR 0.84 MG/DL (0.55-1.30); GLOMERULAR FILTRATION RATE > 60.0 (>39); GLUCOSE, FASTING 96 MG/DL (70-100); HDL CHOLESTEROL 43 MG/DL (>40); LDL CHOLESTEROL 101 MG/DL (<100); NON-HDL-C 122 MG/DL; POTASSIUM SERUM 4.6 MEQ/L (3.5-5.1); SODIUM LEVEL 141 MEQ/L (136-145); TRIGLYCERIDES LEVEL 103 MG/DL (<150)
[2020-08-16 18:36] LABS: HEMOGLOBIN A1c 5.8 %
== END ==
LOC: M SFHCLERA 09:32
PROVIDERS: ATTEND Family Medicine
DX: R73.01 Impaired fasting glucose (principal); E78.5 Hyperlipidemia, unspecified; I10 Essential (primary) hypertension

== ENCOUNTER → 2020-08-16 | Outpatient (CLI) | payer MEDICARE ==
--- NOTE | 2020-08-17 03:22 | REPPI ---
INDICATION: PAIN IN RIGHT HIP TROCHANTERIC BURSITIS, RIGHT HIP Status post arthroplasty. COMPARISON: None. TECHNIQUE: AP view of the pelvis with neutral and frog-lateral views of the right hip. FINDINGS: The patient is status post right hip replacement with normal positioning and appearance to the femoral and acetabular components. Surrounding osseous structures, joint spaces and soft tissues appear relatively within normal limits. Moderate degenerative changes noted to the left hip. IMPRESSION: Relatively normal appearance of the right hip replacement and associated surrounding soft tissues. <Electronically signed by Toro Turk > 08/17/20 0319
== END ==
LOC: M PLAIMG 09:35
PROVIDERS: ATTEND Student in an Organized Health Care Education/Training Program
DX: M25.551 Pain in right hip (principal); M70.61 Trochanteric bursitis, right hip; R73.01 Impaired fasting glucose; E78.5 Hyperlipidemia, unspecified; I10 Essential (primary) hypertension; Z96.641 Presence of right artificial hip joint

== ENCOUNTER → 2020-11-18 | Outpatient (CLI) | payer MEDICARE ==
[~2020-11-18] MED LIST changes: +AMOX500C PO; +CALC600T86 PO; +DONE-1 PO; -DONETAB6 PO; +ERGO500029 PO; +FAMO40TA3 PO; -FLON1SPR; +IBUP80TA PO; +OMEP40CA4 PO; -OMEP40CA97 PO; +ONDA4TAB6 PO; +PREG25CA2 PO
== END ==
LOC: M WHC 09:40
PROVIDERS: ATTEND Family Medicine
DX: Z12.31 Encounter for screening mammogram for malignant neoplasm of breast (principal); Z13.820 Encounter for screening for osteoporosis; M85.89 Other specified disorders of bone density and structure, multiple sites

== ENCOUNTER 2021-01-23 08:49 | Inpatient (IN) | payer MEDICARE ==
[~2021-01-23] VITALS: Ht 149.9 cm; Wt 100.2 kg
[~2021-01-23 08:49] MED LIST changes: -AMOX500C PO; -CALC600T86 PO; -DONE-1 PO; +DONETAB6 PO; -ERGO500029 PO; -FAMO40TA3 PO; -IBUP80TA PO; -ONDA4TAB6 PO; -PREG25CA2 PO
--- OUTSIDE RECORDS SUMMARY | 2021-01-23 09:17 | CCD | Clinical Summary ---
Author Author MD HOLLIS. Monisha Blanca Organization Unknown Address [address] [place] [phone] Phone Care Team Providers Care Food Service Driver Name Role Phone MD HOLLIS. YOUNG [place] Unavailable Allergies and adverse reactions Not included in this report / available at patient request. Medications Not included in this report / available at patient request. 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 Vital Signs LOINC Code Vital Name Va lue Date Performed 11343-4 BMI 37.78 kg/m2 December 28, 2020, 10:37: 00 8302-2 Height 154 cm December 28, 2020, 10:37:00 66311-8 Weight 90 kg December 28, 2020, 10:37:00 8480-6 Systolic BP 127 mm[Hg] December 28, 2020, 10:37:0 0 8462-4 Diastoli c BP 79 mm[Hg] December 28, 2020, 10:37:00 8867-4 Pulse Ra te 73 /min December 28, 2020, 10:37:00 Social History Not included in this report / available at patient request. Procedures Not included in this report / available at patient request. Results Not included in this report / available at patient request. Implantable Devices No Implanted Devices Treatment Plan Not included in this report / available at patient request. Goals Not included in this report / available at patient request. Health Concerns Not included in this report / available at patient request. Medications Administered No Medications Administered Reason For Visit Not included in this report / available at patient request. Instruction Not included in this report / available at patient request.
--- OUTSIDE RECORDS SUMMARY | 2021-01-23 09:17 | CCD | Clinical Summary ---
Author Author MD. Monisha SHAFER Organization Unknown Address [address] [place] [address] [phone] Phone Care Team Providers Care Junior Account Manager Name Role Phone MD HOLLIS. [place] Unavailable Allergies and adverse reactions Not included in this report / available at patient request. Medications Medication Instructions Date Vitamin D3 1.25 MG (16884 UT) Oral Capsule December 08, 2020 Neupro 2 MG/24HR Transdermal Patch 24 Hour 1 Patch(s) , daily December 23, 2018 Furosemide 20 MG Oral Tablet 1 Tablet(s) , daily November 12, 2018 Donepezil HCl 10 MG Oral Tablet 1 Tablet(s) , daily November 12, 2018 Irbesartan 150 MG Oral Tablet 1 Tablet(s) , daily November 12, 2018 Atorvastatin Calcium 20 MG Oral Tablet 1 Tablet(s) , daily November 12, 2018 Escitalopram Oxalate 5 MG Oral Tablet 1 Tablet(s) , daily November 12, 2018 Pantoprazole Sodium 40 MG Oral Tablet Delayed Release 1 Tablet(s) , 2 times daily November 12, 2018 amLODIPine Besylate 5 MG Oral Tablet November 08, 2018 Problems Condition Date Status Pain in right [...] Code Vital Name Va lue Date Performed 37597-4 BMI 37.78 kg/m2 January 20, 2021, 08:56 :00 8302-2 Height 154 cm January 20, 2021, 08:56:00 66158-4 Weight 90 kg January 20, 2021, 08:56:00 8480-6 Systolic BP 156 mm[Hg] January 20, 2021, 08:56: 00 8462-4 Diastoli c BP 80 mm[Hg] January 20, 2021, 08:56:0 0 8867-4 Pulse Ra te 76 /min January 20, 2021, 08:56:00 Social History Social History Element Description Date Current Smoking Status Never smoker November 12, 2018 Procedures Not included in this report / [...] Administered No Medications Administered Reason For Visit Hip Pain, Moderate-Severe Instruction Not included in this report / available at patient request.
--- OUTSIDE RECORDS SUMMARY | 2021-01-23 09:17 | CCD | Clinical Summary ---
Author Author Monisha Wilhelm Organization Unknown Address [address] [place] [address] [phone] Phone Care Team Providers Care Card Lacer Jacquard Name Role Phone Melonie Dora Unavailable Allergies and adverse reactions Not included in this report / available at patient request. Medications Medication Instructions Date Vitamin D3 1.25 MG (29863 UT) Oral Capsule December 08, 2020 Neupro [...] Code Vital Name Va lue Date Performed 63130-4 BMI 37.78 kg/m2 December 08, 2020, 08:54:0 0 8302-2 Height 154 cm December 08, 2020, 08:54:00 04274-7 Weight 90 kg December 08, 2020, 08:54:00 8480-6 Systolic BP 107 mm[Hg] December 08, 2020, 08:54:00 8462-4 Diastoli c BP 68 mm[Hg] December 08, 2020, 08:54:00 8867-4 Pulse Ra te 69 /min December 08, 2020, 08:54:00 Social History Social History Element Description Date [...]
--- OUTSIDE RECORDS SUMMARY | 2021-01-23 09:17 | CCD ---
Author Author [facility] Organization [facility] Address Unknown Phone Unavailable Care Team Providers Care Career And Technology Education Teacher Name Role Phone Lester Cervantes Unavailable PROBLEMS Type Condition ICD9-CM Code XSA41-ZO Code Onset Dates Condition S tatus W/U Status Risk SNOMED Code Notes Problem Acute anxiety F41.9 Active confirmed 057930 003 Problem Barretts esophagus without dysplasia K22.70 Act leo confirmed 929360723 Problem Lee's esophagus determined by biopsy K22.70 Active confirmed 947040082 Problem AILYN (obstructive sleep apnea) G47.33 Active confirm ed 69750822 Problem Hypertension, unspecified type I10 Active confir med 18076767 Problem Hypertension I10 Active confirmed 6196823 3 Problem Dementia without behavioral disturbance, unspeci fied dementia type F03.90 Active confirmed 57678946 Problem Depression, unspecified depression type F32.9 Active confirmed 69825543 Problem Perioral dermatitis L71.0 Active confirmed 455405238 Problem Actinic keratosis L57.0 Active confirmed 20 4055260 Problem Essential hypertension I10 Active confirmed 37260149 Problem Asymptomatic hypertensive urgency I16.0 Active confirmed 754578097 Problem Lentigines L81.4 Active confirmed 754752572 Problem Osteoporosis, unspecified os teoporosis type, unspecified pathological fracture presence M81.0 Active confirmed 07472987 Problem Seborrheic keratoses L82.1 Active confirmed 884860152 Problem Other chronic pain G89.29 Active confirmed 8 5964664 Problem Dyslipidemia E78.5 Active confirmed 2237790 07 Problem Arthritis of knee M17.10 Active confirmed 37 2701309 Problem Seasonal allergies J30.2 Active confirmed 4 13463197 ALLERGIES Allergen (clinical drug ingredient) Drug/Non Drug Allergy do cumented on EMR Reaction Allergy Type Onset Date Status codeine Codeine Sulfate([facility] Code:[address]-77) passed o ut with it in tylenol Drug Allergy Active tramadol Tramadol HCl([facility] Code:[address]-14) diz zy/vomiting when given a tab by of his Tramadol Drug Allergy Active ENCOUNTERS from 1945 to 2020-12-04 Encounter [facility] Date [facility] [address] [facility] [phone] [place] [address] 22 Nov, 2020 Lester Cervantes Osteoporosis, unspecified os teoporosis type, unspecified pathological fracture presence M81.0 ; Seasonal allergies J30.2 ; Vertigo R42 and Breast cancer screening by mammogram Z12.31 IMMUNIZATIONS Vaccine Route Administration Date Status COVID-19 dose #1 given elsewhere Unspecified Unknown Mar 30, 2020 Administered Influenza 18 yrs & older Flublok IM Intramuscular Dec 18, 2018 Administered Influenza 18 yrs & older Flublok IM Intramuscular Jan 21, 2018 Administered Influenza (High Dose 65 & up) IM Intramuscular Dec 25, 2016 A dministered Pneumococcal Adult 0.5mL Pneumovax 23 IM Intramuscular July 06 016 Administered TDAP 0.5mL (Boostrix) IM Intramuscular Dec 18, 2018 Administe red COVID-19 dose #2 given elsewhere Unspecified Unknown Apr 25, 2020 Administered Pneumococcal 0.5mL Prevnar 13 IM Intramuscular Dec 18, 2018 A dministered Influenza 6mo & up Fluzone IM Intramuscular Nov 09, 2015 Admi nistered Influenza 6mo & up Fluzone Unknown May 30, 2015 Other s SOCIAL HISTORY Tobacco Use: Social History Observation Description Date Details (start date - stop date) Never Smoker Sex Assigned At : Social History Observation Description Sex Assigned At Unknown Education: Question Answer Notes Level of Education: High School Audit Question Answer Notes Total Score: 0 Interpretation: Alcohol Education Language: Question Answer Notes Languages spoken: Botswanan Advent: Question Answer Notes Advent 21 [employer]ism Sexual Hx: Question Answer Notes Had sex [...] REASON FOR REFERRAL No Information VITAL SIGNS Weight 220.6 lbs Nov, Height 61 in Nov, BMI 41.68 kg/m2 Nov, Heart Rate 75 /min Nov, Respiratory Rate 18 /min Nov, Temperature 97.5 degrees Fahrenheit Nov, Oximetry 97 Nov, Blood pressure systolic 129 mm Hg Nov, Blood pressure diastolic 77 mm Hg Nov, MEDICATIONS Medication SIG (Take, Route, Frequency, Duration) Notes Start Da te End Date Status Diclofenac Sodium 1 % 4g to affected area of right leg Transdermal every 12 hrs as needed for 30 days rt hip Sep, Active Ibuprofen 200 MG 3 tablets with food or milk as needed Or ally Three times a day Active Flonase Allergy Relief 50 MCG/ACT 1 spray in each nost ril Nasally Once a day for 30 day(s) Nov, Active Famotidine 40 MG TAKE ONE TABLET BY MOUTH TWICE A DAY for 90 Active Atorvastatin Calcium 20 MG 1 tablet Orally Once a day for 90 days Active Ranitidine HCl 150 MG 1 capsule Orally-gi bid Active Drisdol 1.25 MG (21133 UT) 1 capsule Orally weekly for 30 day(s) Nov, Active Donepezil HCl 10 MG 1 tablet at bedtime Orally Once a day Active Furosemide 20 MG 1 tablet Orally Once a day Active Pantoprazole Sodium 40 MG 1 tablet Orally bid for 90 Active Advair HFA 115-21 MCG/ACT 2 puffs Inhalation Twice a day for 30 days Active Irbesartan 150 MG TAKE ONE TABLET BY MOUTH EVERY DAY for 90 Active Neupro 2 MG/24HR APPLY ONE PATCH TO THE SKIN ONCE A DAY Transdermal for 30 Active Ondansetron 4 MG 1 tablet on the tongue and a llow to dissolve as needed Orally Every 8 hours for 14 days Active Calcium 600 MG 1 tablet with meals Orally Once a day for 90 days Nov, Active Ventolin HFA 108 (90 Base) MCG/ACT 2 puffs as needed I nhalation every 4 hrs for 17 Active Celecoxib 200 MG 1 capsule with food Orally Once a day for 30 da y(s) Celebrex Dec, Active Meclizine HCl 25 MG 1 tab Orally every 8 hours as needed for 30 days Active Fluticasone Propionate 50 MCG/ACT 2 sprays Nasally Once a day pr n allergies Dec, Active Amlodipine Besylate 5 MG TAKE ONE TABLET BY MOUTH EVERY DAY for 90 Active Lexapro 5 MG 1 tab Orally Once a day for 90 days Active PROCEDURES No Information RESULTS No Results REASON FOR VISIT 3-4 MONTH F/U- Call [phone] MEDICAL (GENERAL) HISTORY Type Description Date Medical History Alzehimers Medical History Vitamin D deficiency Medical History hyperlipidemia Medical History hypertension, goal 140/90 Medical History hx precancerous polyp in throat Medical History AILYN Medical History Hx barretts esophagus Medical History history of skin lesions Medical History Thyroid nodule 2015, benign Surgical History D&C Surgical History laparoscopy Surgical History bunionectomy-bilateral Surgical History right hip replacement Surgical History left CTS release Surgical History endoscopy 01/2018 Surgical History Colonoscopy 2016 Hospitalization History surgeries Hospitalization History Vertigo 12/09/18- 9 Goals Section No Information Health Concerns No Information MEDICAL EQUIPMENT No Information MENTAL STATUS No Information FUNCTIONAL STATUS No Information ASSESSMENTS Encounter Date Diagnosis Assessment Notes Treatment Notes Treatm ent Clinical Notes Nov, Osteoporosis, unspecified os teoporosis type, unspecified pathological fracture presence (ICD-10 - M81.0) Patient's DEXA scan indicates osteoporosis, Z score under -2.5 for left hip. Discussed options including alendronate, prolia. Reviewed risks/ benefits of medications. Note risk of esophageal tear with alendronate, patient not able to be observed taking by reliable source, ie . Potential sever effects of prolia, include jaw necrosis. Daughter elected to not start those medications at this time. Would prefer to continue vitamin D and calclium at this time. Understands risk of not starting medication as well, including that bone strength will not include and lead to bone fracture. Increase to high dose once week vitamin D. Consider repeat DEXA in the future. Nov, Seasonal allergies (ICD-10 - J30.2) Refill medicaiton. Likely help with symptoms. If not improve/ questions call office. Nov, Vertigo (ICD-10 - R42) Refill medication. Nov, Breast cancer screening by mammogram (ICD-10 - Z 12.31) Reviewed recent mammogram results with patient and daughter. Uptodate. Repeat in 1 year. PLAN OF TREATMENT Medication Medication Name Sig Start Date Stop Date Drisdol 1.25 MG (33272 UT) 1 capsule Orally weekly for 30 day(s) Nov, Flonase Allergy Relief 50 MCG/ACT 1 spray in each nost ril Nasally Once a day for 30 day(s) Nov, Calcium 600 MG 1 tablet with meals Orally Once a day for 90 day s Nov, Meclizine HCl 25 MG 1 tab Orally every 8 hours as needed for 30 days Treatment Notes Assessment Notes Clinical Notes Osteoporosis, unspecified osteoporosis t ype, unspecified pathological fracture presence Patient's DEXA scan indicate s osteoporosis, Z score under -2.5 for left hip. Discussed options including alendronate, prolia. Reviewed risks/ benefits of medications. Note risk of esophageal tear with alendronate, patient not able to be observed taking by reliable source, ie . Potential sever effects of prolia, include jaw necrosis. Daughter elected to not start those medications at this time. Would prefer to continue vitamin D and calclium at this time. Understands risk of not starting medication as well, including that bone strength will not include and lead to bone fracture. Increase to high dose once week vitamin D. Consider repeat DEXA in the future. Seasonal allergies Refill medicaiton. Willie wasserman help with symptoms. If not improve/ questions call office. Vertigo Refill medication. Breast cancer screening by mammogram Rev iewed recent mammogram results with patient and daughter. Uptodate. Repeat in 1 year. Next Appt Details 6 mth Reason: Provider Name:Lester Cervantes, 2021-05-23 09:30:00 AM, [address] [facility], , [place], [address], Insurance Providers Payer Name Payer Address Payer Phone Insured Name Patient Relati onship to Insured Coverage Start Date [facility] End Date [facility] [employer] [facility] [address] [address] [facility] [phone] [place] [employer]
--- OUTSIDE RECORDS SUMMARY | 2021-01-23 09:18 | CCD ---
Author Author [facility] Organization [facility] Address Unknown Phone Unavailable Care Team Providers Care Shank Rander Name Role Phone Abebe, L Maureen CLEANER GREASER Unavailable Unavailable Abebe, L Maureen CLEANER GREASER Unavailable Unavailable Abebe, L Maureen CLEANER GREASER Unavailable Unavailable Abebe, L Maureen CLEANER GREASER Unavailable Unavailable Abebe, L Maureen CLEANER GREASER Unavailable Unavailable Abebe, L Maureen CLEANER GREASER Unavailable Unavailable Abebe, L Maureen CLEANER GREASER Unavailable Unavailable Abebe, L Maureen CLEANER GREASER Unavailable Unavailable Abebe, L Maureen CLEANER GREASER Unavailable Unavailable Abebe, L Maureen CLEANER GREASER Unavailable Unavailable Abebe, L Maureen CLEANER GREASER Unavailable Unavailable Abebe, L Maureen CLEANER GREASER Unavailable Unavailable Abebe, L Maureen CLEANER GREASER Unavailable Unavailable Abebe, L Maureen CLEANER GREASER Unavailable Unavailable Abebe, L Maureen CLEANER GREASER Unavailable Unavailable Abebe, L Maureen CLEANER GREASER Unavailable Unavailable Abebe, L Maureen CLEANER GREASER Unavailable Unavailable Abebe, L Maureen CLEANER GREASER Unavailable Unavailable Baebe, L Maureen CLEANER GREASER Unavailable Unavailable Abebe, L Maureen CLEANER GREASER Unavailable Unavailable Abebe, L Maureen CLEANER GREASER Unavailable Unavailable Abebe, L Maureen CLEANER GREASER Unavailable Unavailable Abebe, L Maureen CLEANER GREASER Unavailable Unavailable Abebe, L Maureen CLEANER GREASER Unavailable Unavailable Abebe, L Maureen CLEANER GREASER Unavailable Unavailable Marcia Mccloud MD Unavailable Unavailable Marcia Mccloud MD Unavailable Unavailable Marcia Mccloud MD Unavailable Unavailable Ame, Marcia Gray MD Unavailable Unavailable Ame, Marcia Gray MD Unavailable Unavailable Ame, Marcia Gray MD Unavailable Unavailable Ame, Marcia Gray MD Unavailable Unavailable Ame, Marcia Gray MD Unavailable Unavailable Ame, Marcia Gray MD Unavailable Unavailable Ame, Marcia Gray MD Unavailable Unavailable Ame, Marcia Gray MD Unavailable Unavailable Ame, Marcia Gray MD Unavailable Unavailable Ame, Marcia Gray MD Unavailable Unavailable Ame, Marcia Gray MD Unavailable Unavailable Ame, Marcia Gray MD Unavailable Unavailable Ame, Marcia Gray MD Unavailable Unavailable Ame, Marcia Gray MD Unavailable Unavailable Ame, Marcia Gray MD Unavailable Unavailable Ame, Marcia Gray MD Unavailable Unavailable Ame, Marcia Gray MD Unavailable Unavailable Ame, Marcia Gray MD Unavailable Unavailable Ame, Marcia Gray MD Unavailable Unavailable Ame, Marcia Gray MD Unavailable Unavailable Ame, Marcia Gray MD Unavailable Unavailable Ame, Marcia Gray MD Unavailable Unavailable Ame, Marcia Gray MD Unavailable Unavailable Ame, Marcia Gray MD Unavailable Unavailable Ame, Marcia Gray MD Unavailable Unavailable Ame, Marcia Gray MD Unavailable Unavailable Ame, Marcia Gray MD Unavailable Unavailable Ame, Marcia Gray MD Unavailable Unavailable Ame, Marcia Gray MD Unavailable Unavailable Ame, Marcia Gray MD Unavailable Unavailable Ame, Marcia Gray MD Unavailable Unavailable Ame, Marcia Gray MD Unavailable Unavailable Ame, Marcia Gray MD Unavailable Unavailable Ame, Marcia Gray MD Unavailable Unavailable Ame, Marcia Gray MD Unavailable Unavailable Ame, Marcia Gray MD Unavailable Unavailable Ame, Marcia Gray MD Unavailable Unavailable Ame, Marcia Gray MD Unavailable Unavailable Ame, Marcia Gray MD Unavailable Unavailable Ame, Marcia Gray MD Unavailable Unavailable Ame, Marcia Gray MD Unavailable Unavailable Ame, Marcia Gray MD Unavailable Unavailable Ame, Marcia Gray MD Unavailable Unavailable Ame, Marcia Gray MD Unavailable Unavailable Ame, Marcia Gray MD Unavailable Unavailable Ame, Marcia Gray MD Unavailable Unavailable Ame, Marcia Gray MD Unavailable Unavailable Ame, Marcia Gray MD Unavailable Unavailable Ame, Marcia Gray MD Unavailable Unavailable Ame, Marcia Gray MD Unavailable Unavailable Ame, Marcia Gray MD Unavailable Unavailable Ame, Marcia Gray MD Unavailable Unavailable Ame, Marcia Gray MD Unavailable Unavailable Ame, Marcia Gray MD Unavailable Unavailable Ame, Marcia Gray MD Unavailable Unavailable Ame, Marcia Gray MD Unavailable Unavailable Ame, A Isaac MD Unavailable Unavailable Marcia Mccloud MD Unavailable Unavailable Marcia Mccloud MD Unavailable Unavailable Marcia Mccloud MD Unavailable Unavailable Marcia Mccloud MD Unavailable Unavailable Marcia Mccloud MD Unavailable Unavailable Marcia Mccloud MD Unavailable Unavailable Marcia Mccloud MD Unavailable Unavailable Marcia Mccloud MD Unavailable Unavailable Macria Mccloud MD Unavailable Unavailable Jimmy Stoner MD Unavailable Unavailable Herbie, O Jamel MARADIAGA Unavailable Unavailable Herbie, O Jamel MARADIAGA Unavailable Unavailable Herbie, O Jamel MARADIAGA Unavailable Unavailable Herbie, O Samah Unavailable Unavailable Herbie, O Jamel MARADIAGA Unavailable Unavailable Herbie, O Jamel MARADIAGA Unavailable Unavailable Herbie, O Jamel MARADIAGA Unavailable Unavailable Herbie, O Jamel MARADIAGA Unavailable Unavailable Herbie, O Jamel MARADIAGA Unavailable Unavailable Herbie, O Jamel MARADIAGA Unavailable Unavailable Jimmy Stoner MD Unavailable Unavailable Herbie O Jamel MARADIAGA Unavailable Unavailable Jimmy Stoner MD Unavailable Unavailable Herbie O Jamel MARADIAGA Unavailable Unavailable Herbie, O Jamel MARADIAGA Unavailable Unavailable Herbie O Jamel MARADIAGA Unavailable Unavailable Herbie O Jamel MARADIAGA Unavailable Unavailable Herbie O Jamel MARADIAGA Unavailable Unavailable Herbie O Jamel MARADIAGA Unavailable Unavailable Herbie O Jamel MARADIAGA Unavailable Unavailable Herbie O [place] Unavailable Unavailable Jimmy Stoner MD Unavailable Unavailable Herbie O Jamel MARADIAGA Unavailable Unavailable Herbie O Jamel MARADIAGA Unavailable Unavailable Herbie O Jamel MARADIAGA Unavailable Unavailable Herbie O Jamel MARADIAGA Unavailable Unavailable Herbie, O [place] Unavailable Unavailable Herbie O Jamel MARADIAGA Unavailable Unavailable Herbie O Jamel MARADIAGA Unavailable Unavailable Herbie O Jamel MARADIAGA Unavailable Unavailable Herbie O [place] Unavailable Unavailable Herbie, O [place] Unavailable Unavailable Herbie, O [place] Unavailable Unavailable Herbie, O Jamel MARADIAGA Unavailable Unavailable Herbie O Jamel MARADIAGA Unavailable Unavailable Herbie, Jimmy Mccullough MD Unavailable Unavailable Herbie, O Samah MD Unavailable Unavailable Jimmy Stoner MD Unavailable Unavailable Jimmy Stoner MD Unavailable Unavailable Jimmy Stoner MD Unavailable Unavailable Jimmy Stoner Samadam MARADIAGA Unavailable Unavailable Jimmy Stoner MD Unavailable Unavailable Jimmy Stoner Samadam MARADIAGA Unavailable Unavailable Jimmy Stoner Samah Unavailable Unavailable Jimmy Stoner MD Unavailable Unavailable [...] Jimmy Stoner MD Unavailable Unavailable Jimmy Stoner Samadam MARADIAGA Unavailable Unavailable Jimmy Stoner MD Unavailable Unavailable Re-disclosure Warning The records [...] is protected by Article 27-F of the [facility] Public Health law. If you continue you may have access to information: Regarding HIV / AIDS; Provided by facilities licensed or operated by the [facility] Office of Mental Health; or Provided by the [facility] Office for People With Developmental Disabilities. If such information is present, then the following [facility] mandated warning applies: This information has been [...] law may result in a fine or snf sentence or both. A general authorization for the release of medical or other information is NOT sufficient authorization for further disc losure. Family History Family Member Name Family Member Gender Family Member Status Date o f Status Description Data Source(s) Unknown Unknown Problem [facility] ([facility]) Unknown Unknown Problem [facility] ([facility]) Unknown Unknown Problem [facility] ([facility]) Unknown Unknown Problem [facility] ([facility]) Encounters Encounter Providers Location Date Indications Data Source(s ) Outpatient Attender: Isaac Mccloud MD 12/28/2020 11:09: 00 AM EDT [facility] ([facility]) Outpatient Attender: Isaac Mccloud MD 12/06/2020 11:15: 00 AM EDT [facility] ([facility]) Outpatient Attender: Isaac Mccloud MD 12/01/2020 02:58: 00 PM EDT [facility] ([facility]) [place] [address] [address] 11/23/2020 12:00:00 AM EDT eCW1 ([facility]) Outpatient Attender: Jamel Stoner MD [facility] 10/11/2020 10:45:00 AM EDT [facility] ([facility]) Outpatient Attender: Maureen Olsen/Phi/Kenneth/Reindl 10/11/2020 09:00:00 AM EDT [facility] ([facility] [place] [address] [address] 10/10/2020 12:00:00 AM EDT eCW1 ([facility]) [place] [address] [address] 08/15/2020 12:00:00 AM EDT eCW1 ([facility]) [place] [address] [address] 07/19/2020 12:00:00 AM EDT eCW1 ([facility]) [place] [address] [address] 07/18/2020 12:00:00 AM EDT eCW1 ([facility]) Outpatient Attender: Jamel Stoner MD [facility] 06/13/2020 11:45:00 AM EDT [facility] ([facility] ) [place] [address] [address] 04/06/2020 12:00:00 AM EST eCW1 ([facility]) [place] [address] [address] 03/25/2020 12:00:00 AM EST eCW1 ([facility]) [place] [address] [address] 03/01/2020 12:00:00 AM EST eCW1 ([facility]) Outpatient Attender: Jamel Stoner MD [facility] 02/23/2020 10:15:00 AM EST [facility] ([facility]) [place] [address] [address] 01/19/2020 12:00:00 AM EST eCW1 ([facility]) [place] [address] [address] 01/04/2020 12:00:00 AM EST eCW1 ([facility]) Immunizations Vaccine Date Status Description Data Source(s) COVID-19 dose #2 given elsewhere Unspecified 04/25/2020 03:5 2:00 PM EST completed eCW1 ([facility]) COVID-19 dose #2 given elsewhere Unspecified 04/25/2020 03:5 2:00 PM EST completed eCW1 ([facility]) COVID-19 dose #2 given elsewhere Unspecified 04/25/2020 03:5 2:00 PM EST completed eCW1 ([facility]) COVID-19 dose #2 given elsewhere Unspecified 04/25/2020 03:5 2:00 PM EST completed eCW1 ([facility]) COVID-19 dose #2 given elsewhere Unspecified 04/25/2020 03:5 2:00 PM EST completed eCW1 ([facility]) COVID-19 VACCINE Moderna 04/25/2020 12:00:00 AM EST completed [facility] Vaccine Series Complete: YESThis Data wa s Submitted to [facility]. COVID-19 VACCINE, MRNA-1273, LNP-S (MODERNA)/PF 04/25/2020 1 2:00:00 AM EST completed [facility] COVID-19 dose #1 given elsewhere Unspecified 03/30/2020 03:5 2:00 PM EST completed eCW1 ([facility]) COVID-19 dose #1 given elsewhere Unspecified 03/30/2020 03:5 2:00 PM EST completed eCW1 ([facility]) COVID-19 dose #1 given elsewhere Unspecified 03/30/2020 03:5 2:00 PM EST completed eCW1 ([facility]) COVID-19 dose #1 given elsewhere Unspecified 03/30/2020 03:5 2:00 PM EST completed eCW1 ([facility]) COVID-19 dose #1 given elsewhere Unspecified 03/30/2020 03:5 2:00 PM EST completed eCW1 ([facility]) COVID-19 VACCINE Moderna 03/30/2020 12:00:00 AM EST completed [facility] Vaccine Series Complete: NOThis Data was Submitted to [facility] [address] [place]. COVID-19 VACCINE, MRNA-1273, LNP-S (MODERNA)/PF 03/30/2020 1 2:00:00 AM EST completed [facility] Medications Medication Brand Name Start Date Product Form Dose Route Admi nistrative Instructions Pharmacy Instructions Status Indications Reaction Description Data Source(s) pantoprazole 40 MG Delayed Release Oral Tablet PANTOPRAZOLE SODIUM 01/10/2021 12:00:00 AM EST tablet,delayed release (DR/EC) 180 T CARMELLA ONE TABLET BY MOUTH TWICE A DAY TAKE ONE TABLET BY MOUTH TWICE A DAY SOLD: 01/10/2021 [facility] atorvastatin 20 MG Oral Tablet ATORVASTATIN CALCIUM 01/07/2021 1 2:00:00 AM EDT tablet 90 TAKE ONE TABLET BY MOUTH EVERY D AY TAKE ONE TABLET BY MOUTH EVERY DAY SOLD: 01/08/2021 [facility] 25 mg 01/06/2021 12:00:00 AM EDT capsule 120 TAKE ONE CAPSULE BY MOUTH FOUR TIMES A DAY MAXIMUM DAILY DOSE = 4 CAPSULES TAKE ONE CAPSULE BY MOUTH FOUR TIMES A DAY MAXIMUM DAILY DOSE = 4 CAPSULES SOLD: 01/06/2021 [facility] Escitalopram 5 MG Oral Tablet ESCITALOPRAM OXALATE 01/02/2021 12 :00:00 AM EDT tablet 90 TAKE ONE TABLET BY MOUTH EVERY D AY TAKE ONE TABLET BY MOUTH EVERY DAY SOLD: 01/02/2021 [facility] Famotidine 40 MG Oral Tablet FAMOTIDINE 01/02/2021 12:00:00 AM EDT tab let 180 TAKE ONE TABLET BY MOUTH TWICE A DAY TAKE ONE TABLET BY MOUTH TWICE A DAY SOLD: 01/02/2021 [facility] 5 mg 01/02/2021 12:00:00 AM EDT tablet 90 TAKE ONE TABLET BY MOUTH EVERY DAY TAKE ONE TABLET BY MOUTH EVERY DAY SOLD: 01/02/2021 [facility] Cholecalciferol 35384 UNT Oral Capsule Vitamin D3 1.25 MG (57811 UT) Oral Capsule 12/08/2020 12:00:00 AM EDT ORAL completed [facility] ([facility]) 600 mg calcium (1,500 mg) 11/24/2020 12:00:00 AM EDT tablet 90 TAKE ONE TABLET BY MOUTH ONCE DAILY WITH A MEAL TAKE ONE TABLET BY MOUTH ONCE DAILY WITH A MEAL SOLD: 11/24/2020 [facility] Meclizine Hydrochloride 25 MG Oral Tablet MECLIZINE HCL 11/23/2020 12:00:00 AM EDT tablet 30 TAKE ONE TABLET BY MOUTH [place] 8 HOURS NEEDED TAKE ONE TABLET BY MOUTH EVERY 8 HOURS NEEDED SOLD: 12/25/2020 [facility] Meclizine Hydrochloride 25 MG Oral Tablet MECLIZINE HCL 11/23/2020 12:00:00 AM EDT tablet 30 TAKE ONE TABLET BY MOUTH [place] 8 HOURS NEEDED TAKE ONE TABLET BY MOUTH EVERY 8 HOURS NEEDED SOLD: 11/23/2020 [facility] 1,250 mcg (50,000 unit) 11/23/2020 12:00:00 AM EDT capsule 4 TAKE 1 CAPSULE BY MOUTH EVERY WEEK TAKE 1 CAPSULE BY MOUTH EVERY WEEK SOLD: 11/23/2020 [facility] 1,250 mcg (50,000 unit) 11/23/2020 12:00:00 AM EDT capsule 4 TAKE 1 CAPSULE BY MOUTH EVERY WEEK TAKE 1 CAPSULE BY MOUTH EVERY WEEK SOLD: 12/25/2020 [facility] Calcium 600 MG Calcium 600 MG 11/23/2020 12:00:00 AM EDT 1.0 {tablet_with_meals} active Calcium 600 MG eCW1 ([facility]) 1,250 mcg (50,000 unit) 11/23/2020 12:00:00 AM EDT capsule 4 TAKE 1 CAPSULE BY MOUTH EVERY WEEK TAKE 1 CAPSULE BY MOUTH EVERY WEEK SOLD: 01/15/2021 [facility] Fluticasone propionate 0.05 MG/ACTUAT Metered Dose [place] 50 mcg/actuation FLUTICASONE PROPIONATE 11/23/2020 12:00:00 AM EDT spray,suspension 16 SPRAY 1 SPRAY IN EACH NOSTRIL ONCE DAILY SPRAY 1 SPRAY IN EACH NOSTRIL ONCE DAILY SOLD: 11/23/2020 [facility] Flonase Allergy Relief 50 MCG/ACT Flonase Allergy Relief 50 MCG/ACT 11/23/2020 12:00:00 AM EDT 1.0 {spray_in_each_nostril} acti ve Flonase Allergy Relief 50 MCG/ACT eCW1 ([facility]) Ergocalciferol 70713 UNT Oral Capsule [Drisdol] Drisdo l 1.25 MG (82101 UT) Drisdol 1.25 MG (90151 UT) 11/23/2020 12:00:00 AM EDT 1.0 {capsule} active Drisdol 1.25 MG (45849 UT) eCW1 ([facility]) 200 mg 11/18/2020 12:00:00 AM EDT capsule 90 TAKE ONE CAPSULE BY MOUTH EVERY DAY WITH FOOD TAKE ONE CAPSULE BY MOUTH EVERY DAY WITH FOOD SOLD: 11/18/2020 [facility] 25 mg 11/18/2020 12:00:00 AM EDT capsule 120 TAKE 1 CAPSULE BY MOUTH 4 TIMES A DAY MAX DAILY DOSE = 4 CAPSULES TAKE 1 CAPSULE BY MOUTH 4 TIMES A DAY MA X DAILY DOSE = 4 CAPSULES SOLD: 11/18/2020 [facility] 150 mg 11/07/2020 12:00:00 AM EDT tablet 90 TAKE ONE TABLET BY MOUTH EVERY DAY TAKE ONE TABLET BY MOUTH EVERY DAY SOLD: 11/07/2020 [facility] 25 mg 10/20/2020 12:00:00 AM EDT capsule 90 TAKE ONE CAPSULE BY MOUTH THREE TIMES A DAY MAXIMUM DAILY DOSE = 3 CAPS TAKE ONE CAPSULE BY MOUTH THREE TIMES A DAY MAXIMUM DAILY DOSE = 3 CAPS SOLD: 10/20/2020 [facility] 120 ACTUAT Fluticasone propionate 0.115 MG/ACTUAT / salmeterol 0.021 MG/ACTUAT Metered Dose Inhaler [Advair] 115-21 mcg/actuation FLUTICASONE PROPION/SALMETEROL 10/11/2020 12:00:00 AM EDT HFA aerosol inhaler 12 INHALE TWO PUFFS BY MOUTH TWICE A DAY INHALE TWO PUFFS BY MOUTH TWICE A DAY SOLD: 10/11/2020 [facility] 5 mg 10/10/2020 12:00:00 AM EDT tablet 90 TAKE ONE TABLET BY MOUTH EVERY DAY TAKE ONE TABLET BY MOUTH EVERY DAY SOLD: 10/10/2020 [facility] Famotidine 40 MG Oral Tablet FAMOTIDINE 10/10/2020 12:00:00 AM EDT tab let 180 TAKE ONE TABLET BY MOUTH TWICE A DAY TAKE ONE TABLET BY MOUTH TWICE A DAY SOLD: 10/10/2020 [facility] 25 mg 09/21/2020 12:00:00 AM EDT capsule 90 TAKE ONE CAPSULE BY MOUTH THREE TIMES A DAY MAXIMUM DAILY DOSE = 3 CAPSULES TAKE ONE CAPSULE BY MOUTH THREE TIMES A DAY MAXIMUM DAILY DOSE = 3 CAPSULES SOLD: 09/21/2020 [facility] 200 mg 08/27/2020 12:00:00 AM EDT capsule 90 TAKE ONE CAPSULE BY MOUTH EVERY DAY WITH FOOD MAXIMUM DAILY DOSE = 1 TAKE ONE CAPSULE BY MOUTH EVERY DAY WITH FOOD MAXIMUM DAILY DOSE = 1 SOLD: 08/28/2020 [facility] Meclizine Hydrochloride 25 MG Oral Tablet MECLIZINE HCL 08/24/2020 12:00:00 AM EDT tablet 30 TAKE ONE TABLET BY MOUTH [place] 8 HOURS NEEDED FOR 10 DAYS TAKE ONE TABLET BY MOUTH EVERY 8 HOURS NEEDED FOR 10 DAYS SOLD: 08/24/2020 [facility] Meclizine Hydrochloride 25 MG Oral Tablet MECLIZINE HCL 08/24/2020 12:00:00 AM EDT tablet 30 TAKE ONE TABLET BY MOUTH [place] 8 HOURS NEEDED FOR 10 DAYS TAKE ONE TABLET BY MOUTH EVERY 8 HOURS NEEDED FOR 10 DAYS SOLD: 10/05/2020 [facility] 25 mg 08/20/2020 12:00:00 AM EDT capsule 90 TAKE ONE CAPSULE BY MOUTH THREE TIMES A DAY MAXIMUM DAILY DOSE = 3 CAPSULES TAKE ONE CAPSULE BY MOUTH THREE TIMES A DAY MAXIMUM DAILY DOSE = 3 CAPSULES SOLD: 08/23/2020 [facility] 150 mg 08/16/2020 12:00:00 AM EDT tablet 90 TAKE ONE TABLET BY MOUTH EVERY DAY TAKE ONE TABLET BY MOUTH EVERY DAY SOLD: 08/16/2020 [facility] 200 mg 08/04/2020 12:00:00 AM EDT capsule 30 TAKE 1 CAPSULE BY MOUTH ONCE DAILY WITH FOOD MAXIMUM DAILY DOSE = 1 TAKE 1 CAPSULE BY MOUTH ONCE DAILY WITH FOOD MAXIMUM DAILY DOSE = 1 SOLD: 08/04/2020 [facility] pantoprazole 40 MG Delayed Release Oral Tablet PANTOPRAZOLE SODIUM 07/29/2020 12:00:00 AM EDT tablet,delayed release (DR/EC) 180 T CARMELLA ONE TABLET BY MOUTH TWICE A DAY TAKE ONE TABLET BY MOUTH TWICE A DAY SOLD: 07/29/2020 [facility] pantoprazole 40 MG Delayed Release Oral Tablet PANTOPRAZOLE SODIUM 07/29/2020 12:00:00 AM EDT tablet,delayed release (DR/EC) 180 T CARMELLA ONE TABLET BY MOUTH TWICE A DAY TAKE ONE TABLET BY MOUTH TWICE A DAY SOLD: 10/26/2020 [facility] 25 mg 07/22/2020 12:00:00 AM EDT capsule 90 TAKE ONE CAPSULE BY MOUTH THREE TIMES A DAY MAXIMUM DAILY DOSE = 3 CAPSULES TAKE ONE CAPSULE BY MOUTH THREE TIMES A DAY MAXIMUM DAILY DOSE = 3 CAPSULES SOLD: 07/22/2020 [facility] atorvastatin 20 MG Oral Tablet ATORVASTATIN CALCIUM 07/19/2020 1 2:00:00 AM EDT tablet 90 TAKE ONE TABLET BY MOUTH EVERY D AY TAKE ONE TABLET BY MOUTH EVERY DAY SOLD: 07/19/2020 [facility] atorvastatin 20 MG Oral Tablet ATORVASTATIN CALCIUM 07/19/2020 1 2:00:00 AM EDT tablet 90 TAKE ONE TABLET BY MOUTH EVERY D AY TAKE ONE TABLET BY MOUTH EVERY DAY SOLD: 10/05/2020 [facility] 5 mg 07/13/2020 12:00:00 AM EDT tablet 90 TAKE ONE TABLET BY MOUTH EVERY DAY TAKE ONE TABLET BY MOUTH EVERY DAY SOLD: 07/13/2020 [facility] Famotidine 40 MG Oral Tablet FAMOTIDINE 07/08/2020 12:00:00 AM EDT tab let 180 TAKE ONE TABLET BY MOUTH TWICE A DAY TAKE ONE TABLET BY MOUTH TWICE A DAY SOLD: 07/08/2020 [facility] Escitalopram 5 MG Oral Tablet ESCITALOPRAM OXALATE 06/22/2020 12 :00:00 AM EDT tablet 90 TAKE ONE TABLET BY MOUTH EVERY D AY TAKE ONE TABLET BY MOUTH EVERY DAY SOLD: 06/22/2020 [facility] Escitalopram 5 MG Oral Tablet ESCITALOPRAM OXALATE 06/22/2020 12 :00:00 AM EDT tablet 90 TAKE ONE TABLET BY MOUTH EVERY D AY TAKE ONE TABLET BY MOUTH EVERY DAY SOLD: 09/17/2020 [facility] Ondansetron 4 MG Disintegrating Oral Tablet ONDANSETRON 06/21/2020 12:00:00 AM EDT tablet,disintegrating 42 DISSOLVE 1 TABLET ON TONGUE EVERY 8 HOURS NEEDED FOR 14 DAYS DISSOLVE 1 TABLET ON TONGUE EVERY 8 HOUR S NEEDED FOR 14 DAYS SOLD: 06/21/2020 [facility] 4.6 mg/24 hour 06/13/2020 12:00:00 AM EDT patch 24 hour 90 APPLY ONE PATCH TO THE SKIN EVERY DAY FOR 24 HOURS APPLY ONE PATCH TO THE SKIN EVERY DAY FO R 24 HOURS SOLD: 09/09/2020 [facility] 10 mg 06/13/2020 12:00:00 AM EDT tablet 90 TAKE ONE TABLET BY MOUTH EVERY DAY IN THE MORNING TAKE ONE TABLET BY MOUTH EVERY DAY IN THE MORNING SOLD : 06/13/2020 [facility] 10 mg 06/13/2020 12:00:00 AM EDT tablet 90 TAKE ONE TABLET BY MOUTH EVERY DAY IN THE MORNING TAKE ONE TABLET BY MOUTH EVERY DAY IN THE MORNING SOLD : 09/09/2020 [facility] 4.6 mg/24 hour 06/13/2020 12:00:00 AM EDT patch 24 hour 90 APPLY ONE PATCH TO THE SKIN EVERY DAY FOR 24 HOURS APPLY ONE PATCH TO THE SKIN EVERY DAY FO R 24 HOURS SOLD: 06/13/2020 [facility] gabapentin 300 MG Oral Capsule GABAPENTIN 06/10/2020 12:00:00 AM EDT capsule 90 TAKE ONE CAPSULE BY MOUTH THREE TIMES A DAY TAKE ONE C APSULE BY MOUTH THREE TIMES A DAY SOLD: 06/10/2020 [facility] 150 mg 05/07/2020 12:00:00 AM EST tablet 90 TAKE ONE TABLET BY MOUTH EVERY DAY TAKE ONE TABLET BY MOUTH EVERY DAY SOLD: 05/07/2020 [facility] 200 mg 04/28/2020 12:00:00 AM EST capsule 90 TAKE ONE CAPSULE BY MOUTH EVERY DAY WITH FOOD TAKE ONE CAPSULE BY MOUTH EVERY DAY WITH FOOD SOLD: 05/01/2020 [facility] 300 mg 04/28/2020 12:00:00 AM EST capsule 90 TAKE ONE CAPSULE BY MOUTH THREE TIMES A DAY TAKE ONE CAPSULE BY MOUTH THREE TIMES A DAY SOLD: 05/01/2020 [facility] 100 mg 04/05/2020 12:00:00 AM EST capsule 180 TAKE TWO CAPSULES BY MOUTH THREE TIMES A DAY MAXIMUM DAILY DOSE = 6 TAKE TWO CAPSULES BY MOUTH THREE TIMES A DAY MAXIMUM DAILY DOSE = 6 SOLD: 04/05/2020 [facility] 40 mg 04/04/2020 12:00:00 AM EST tablet 180 TAKE ONE TABLET BY MOUTH TWICE A DAY TAKE ONE TABLET BY MOUTH TWICE A DAY SOLD: 04/04/2020 [facility] 200 mg 03/11/2020 12:00:00 AM EST capsule [...] PUFFS BY MOUTH TWICE A DAY SOLD: 03/30/2020 [facility] 115-21 mcg/actuation 03/02/2020 12:00:00 AM EST HFA aerosol inhaler 12 INHALE TWO PUFFS BY MOUTH TWICE A DAY INHALE TWO PUFFS BY MOUTH TWICE A DAY SOLD: 05/25/2020 [facility] 120 ACTUAT Fluticasone propionate 0.115 MG/ACTUAT / salmeterol 0.021 MG/ACTUAT Metered Dose Inhaler [Advair] 115-21 mcg/actuation FLUTICASONE PROPION/SALMETEROL 03/02/2020 12:00:00 AM EST HFA aerosol inhaler 12 INHALE TWO PUFFS BY MOUTH TWICE A DAY INHALE TWO PUFFS BY MOUTH TWICE A DAY SOLD: 07/20/2020 [facility] 115-21 mcg/actuation 03/02/2020 12:00:00 AM EST HFA aerosol inhaler 12 INHALE TWO PUFFS BY MOUTH TWICE A DAY INHALE TWO PUFFS BY MOUTH TWICE A DAY SOLD: 04/27/2020 [facility] 120 ACTUAT Fluticasone propionate 0.115 MG/ACTUAT / salmeterol 0.021 MG/ACTUAT Metered Dose Inhaler [Advair] 115-21 mcg/actuation FLUTICASONE PROPION/SALMETEROL 03/02/2020 12:00:00 AM EST HFA aerosol inhaler 12 INHALE TWO PUFFS BY MOUTH TWICE A DAY INHALE TWO PUFFS BY MOUTH TWICE A DAY SOLD: 06/22/2020 [facility] 115-21 mcg/actuation 03/02/2020 12:00:00 AM [...] 4 TIMES A DAY SOLD: 06/2019 [facility] pantoprazole 40 MG Delayed Release Oral Tablet PANTOPRAZOLE SODIUM 02/04/2020 12:00:00 AM EST tablet,delayed release (DR/EC) 180 T CARMELLA 1 TABLET BY MOUTH TWO TIMES A DAY TAKE 1 TABLET BY MOUTH TWO TIMES A DAY SOLD: 05/02/2020 [facility] pantoprazole 40 MG Delayed Release Oral Tablet PANTOPRAZOLE SODIUM 02/04/2020 12:00:00 AM EST tablet,delayed release (DR/EC) 180 T CARMELLA 1 TABLET BY MOUTH TWO TIMES A DAY TAKE 1 TABLET BY MOUTH TWO TIMES A DAY SOLD: 02/05/2020 [facility] atorvastatin 20 MG Oral Tablet ATORVASTATIN CALCIUM 01/25/2020 1 2:00:00 AM EST tablet 90 TAKE ONE TABLET BY MOUTH EVERY D AY TAKE ONE TABLET BY MOUTH EVERY DAY SOLD: 04/22/2020 [facility] atorvastatin 20 MG Oral Tablet ATORVASTATIN CALCIUM 01/25/2020 1 2:00:00 AM EST tablet 90 TAKE ONE TABLET BY MOUTH EVERY D AY TAKE ONE TABLET BY MOUTH EVERY DAY SOLD: 01/25/2020 [facility] 5 mg 01/19/2020 12:00:00 AM EST tablet 90 TAKE 1 TABLET BY MOUTH ONCE A DAY TAKE 1 TABLET BY MOUTH ONCE A DAY SOLD: 01/19/2020 [facility] 5 mg 01/19/2020 12:00:00 AM EST tablet 90 TAKE 1 TABLET BY MOUTH ONCE A DAY TAKE 1 TABLET BY MOUTH ONCE A DAY SOLD: 04/17/2020 [facility] Meclizine Hydrochloride 25 MG Oral Tablet MECLIZINE HCL 01/05/2020 12:00:00 AM EST tablet 30 TAKE ONE TABLET BY MOUTH [place] 8 HOURS NEEDED TAKE ONE TABLET BY MOUTH EVERY 8 HOURS NEEDED SOLD: 03/06/2020 [facility] Meclizine Hydrochloride 25 MG Oral Tablet MECLIZINE HCL 01/05/2020 12:00:00 AM EST tablet 30 TAKE ONE TABLET BY MOUTH [place] 8 HOURS NEEDED TAKE ONE TABLET BY MOUTH EVERY 8 HOURS NEEDED SOLD: 04/01/2020 [facility] Meclizine Hydrochloride 25 MG Oral Tablet MECLIZINE HCL 01/05/2020 12:00:00 AM EST tablet 30 TAKE ONE TABLET BY MOUTH [place] 8 HOURS NEEDED TAKE ONE TABLET BY MOUTH EVERY 8 HOURS NEEDED SOLD: 02/06/2020 [facility] 10 mg 12/31/2019 12:00:00 AM EDT tablet 90 TAKE ONE TABLET BY MOUTH EVERY MORNING TAKE ONE TABLET BY MOUTH EVERY MORNING SOLD: 04/03/2020 [facility] 200 mg 12/23/2019 12:00:00 AM EDT capsule 30 TAKE 1 CAPSULE BY MOUTH DAILY WITH FOOD MAXIMUM DAILY DOSE = 1 TAKE 1 CAPSULE BY MOUTH DAILY WITH FOOD MAXIMUM DAILY DOSE = 1 SOLD: 12/23/2019 [facility] 200 mg 12/23/2019 12:00:00 AM EDT capsule 30 TAKE 1 CAPSULE BY MOUTH DAILY WITH FOOD MAXIMUM DAILY DOSE = 1 TAKE 1 CAPSULE BY MOUTH DAILY WITH FOOD MAXIMUM DAILY DOSE = 1 SOLD: 01/20/2020 [facility] Escitalopram 5 MG Oral Tablet ESCITALOPRAM OXALATE 12/18/2019 12 :00:00 AM EDT tablet 90 TAKE ONE TABLET BY MOUTH EVERY D AY TAKE ONE TABLET BY MOUTH EVERY DAY SOLD: 03/15/2020 [facility] Escitalopram 5 MG Oral Tablet ESCITALOPRAM OXALATE 12/18/2019 12 :00:00 AM EDT tablet 90 TAKE ONE TABLET BY MOUTH EVERY D AY TAKE ONE TABLET BY MOUTH EVERY DAY SOLD: 12/18/2019 [facility] 40 mg 12/17/2019 12:00:00 AM EDT [...] 24 HOURS SOLD: 01/19/2020 [facility] 115-21 mcg/actuation 11/10/2019 12:00:00 AM EDT HFA aerosol inhaler 12 INHALE TWO PUFFS BY MOUTH TWICE A DAY INHALE TWO PUFFS BY MOUTH TWICE A DAY SOLD: 02/03/2020 [facility] 115-21 mcg/actuation 11/10/2019 12:00:00 AM EDT HFA aerosol inhaler 12 INHALE TWO PUFFS BY MOUTH TWICE A DAY INHALE TWO PUFFS BY MOUTH TWICE A DAY SOLD: 12/09/2019 [facility] 90 mcg/actuation 11/10/2019 12:00:00 AM EDT HFA aerosol inha ler 18 INHALE 2 PUFFS BY MOUTH EVERY 4 HOURS NEEDED INHALE 2 PUFFS BY MOUTH EVERY 4 HOURS NEEDED SOLD: 10/16/2020 [facility] 90 mcg/actuation 11/10/2019 12:00:00 AM EDT HFA aerosol inha ler 18 INHALE 2 PUFFS BY MOUTH EVERY 4 HOURS NEEDED INHALE 2 PUFFS BY MOUTH EVERY 4 HOURS NEEDED SOLD: 12/11/2019 [facility] 90 mcg/actuation 11/10/2019 12:00:00 [...] MOUTH EVERY 4 HOURS NEEDED SOLD: 12/26/2019 [facility] Meclizine Hydrochloride 25 MG Oral Tablet MECLIZINE HCL 07/18/2019 12:00:00 AM EDT tablet 30 TAKE ONE TABLET BY MOUTH [place] 8 HOURS NEEDED TAKE ONE TABLET BY MOUTH EVERY 8 HOURS NEEDED SOLD: 05/06/2020 [facility] Meclizine Hydrochloride 25 MG Oral Tablet MECLIZINE HCL 07/18/2019 12:00:00 AM EDT tablet 30 TAKE ONE TABLET BY MOUTH [place] 8 HOURS NEEDED TAKE ONE TABLET BY MOUTH EVERY 8 HOURS NEEDED SOLD: 07/07/2020 [facility] Meclizine Hydrochloride 25 MG Oral Tablet MECLIZINE HCL 07/18/2019 12:00:00 AM EDT tablet 30 TAKE ONE TABLET BY MOUTH [place] 8 HOURS NEEDED TAKE ONE TABLET BY MOUTH EVERY 8 HOURS NEEDED SOLD: 06/07/2020 [facility] Insurance Providers Payer name Policy type / Coverage type Policy ID Covered democrat ID Covered democrat's relationship to gonzalez Policy Gonzalez Plan Information [facility] Part B [id number] Self Y [id number] [facility] [id number] 0 [id number] MEDICARE [id number] SP [id number] A [employer] CLAIMS (PFFS) [id number] [employer] Commercial [id number] 7364.0 Self [id number] [employer] Commercial [id number] 7364.0 Self [id number] [employer] Commercial [id number] 7364.0 Self [id number] [employer] Commercial [id number] 7364.0 Self [id number] [employer] Commercial [id number] 7364.0 Self [id number] Medicare Part B [facility] [id number] 0 [id number] [facility] Option [id number] 0 [id number] Today's Options Medicare Commercial [id number] Self [id number] [employer] Medicare Commercial [id number] Self [id number] [employer] Medicare Commercial [id number] Self [id number] [employer] Medicare Commercial [id number] Self [id number] TOD[employer] OPTIONS [id number] SP [id number] [employer] Options Medicare Commercial [id number] Self [employer] Medigap Part B [id number] 2638.0 Self [id number] [employer] Med[employer]ap Part B [id number] 2638.0 Self [id number] [employer] [facility] OPTIONS [id number] [facility] [id number] 18 [id number] ANSI-Commercial [id number] Medicare [facility] Medicare Primary [id number] Self [id number] ANSI-Medicare Part B [id number] ANSI-Commercial [id number] ANSI-Commercial [id number] ANSI-Medicare Part B [id number] ANSI-Commercial [id number] ANSI-Medicare Part B [id number] [facility] [id number] 2638.0 Self [id number] Medicare [facility] Medicare Primary [id number] Self [id number] [facility] [id number] 2638.0 Self [id number] [facility] Medicare Primary [id number] Self [id number] [employer] Medigap Part B [id number]46.3 2638.0 Self [id number] [facility] Medicare Primary [id number]87.0 Self [id number] [employer] Med[employer]ap Part B [id number] 2638.0 Self [id number] [facility] Medicare Primary [id number] Self [id number] [employer] Med[employer]ap Part B [id number] 2638.0 Self [id number] [facility] Medicare Primary [id number] Self [id number] [employer] OPTIONS [id number] SP [id number] [employer] OPTIONS [id number] SP [id number] [employer] Med[employer] Part B [id number] 38.0 Self [facility] Medicare Primary [id number] Self [employer] OPTIONS [id number] SP [id number] [employer] [facility] [facility] OPTIONS [id number] SP [id number] [facility] Options Medigap Part B [id number] Self Medicare [facility] Medicare Primary [id number]. [id number] Self AARP O [id number] S [id number] MEDICARE C [id number] S [id number] A MEDICARE [id number] SP [id number] [employer] PPO [id number] SP [id number] HU[employer] GOLD [id number] SP [id number] [employer] PPO [id number] SP [id number] WELLCARE [id number] SP [id number] WELLCARE [id number] SP [id number] WELLCARE O [id number] S [id number] MEDICARE [id number] SP [id number] [facility] HEALTH CARE OPTIONS [id number] SP [id number] MEDICAID UNAVAILABLE UNAVAILA BLE ANSI-Medicare Part B [id number] ANSI-Commercial [id number] ANSI-Medicare Part B [id number] ANSI-Commercial [id number] ANSI-Commercial [id number] ANSI-Medicare Part B [id number] MEDICARE [id number] SP [id number] A [facility] Medicare Primary [id number] Self [id number] ANSI-Commercial [id number] ANS-Medicare Part B [id number] ANS-Medicare Part B [id number] ANSI-Commercial [id number] ANSI-Medicare Part B [id number] ANSI-Commercial [id number] ANSI-Medicare Part B [id number] Problems, Conditions, and Diagnoses Code Display Name Description Problem Type Effective Dates Data Source(s) M81.0 [id number] Osteoporosis, unspec ified osteoporosis type, unspecified pathological fracture presence Problem 11/23/2020 12:00:00 AM EDT eC W1 ([facility]) M25.561 Pain in right knee Pain in right knee Diagnosis 12:00:00 AM EDT [facility] ([facility]) I16.0 [id number] Asymptomatic hypertensive urgency Problem 04/06/2020 12:00:00 AM EST eCW1 ([facility]) Surgeries/Procedures Procedure Description Date Indications Data Source(s) OFFICE OUTPATIENT VISIT 25 MINUTES 10/11/2020 12:00:00 AM EDT MEDENT ([facility], ) OFFICE OUTPATIENT VISIT 15 MINUTES 10/11/2020 12:00:00 AM EDT MEDENT ([facility], ) OFFICE OUTPATIENT VISIT 15 MINUTES 06/13/2020 12:00:00 AM EDT MEDENT ([facility], ) ECG ROUTINE ECG W/LEAST 12 LDS W/I&R 04/06/2020 12:00: 00 AM EST eCW1 ([facility]) Results ID Date Data Source [id number] 03/24/2020 09:05:00 PM EST [facility] Name Value Range Interpretation Code Description Data Gina rce(s) Supporting Document(s) SARS coronavirus 2 RNA [Presence] in Res piratory specimen by ALLAN with probe detection NEGATIVE [facility] This lab was ordered by [facility] a nd reported by [facility]. Procedure Social History Code Duration Value Status Description Data Source(s ) Smoking 11/23/2020 12:00:00 AM EDT Never Smoker completed Never S moker eCW1 ([facility]) Smoking 10/11/2020 12:00:00 AM EDT Patient has never smoked co mpleted Patient has never smoked MEDENT ([facility], ) Smoking 07/19/2020 12:00:00 AM EDT Never Smoker completed Never S moker eCW1 ([facility]) Smoking 07/19/2020 12:00:00 AM EDT Never Smoker completed Never S moker eCW1 ([facility]) Smoking 07/19/2020 12:00:00 AM EDT Never Smoker completed Never S moker eCW1 ([facility]) Smoking 07/19/2020 12:00:00 AM EDT Never Smoker completed Never S moker eCW1 ([facility]) Smoking 04/06/2020 12:00:00 AM EST Never Smoker completed Never S moker eCW1 ([facility]) Vital Signs ID Date Data Source UNK Name Value Range Interpretation Code Description Data Source(s) Body mass index (BMI) [Ratio] 37.78 kg/m2 37.78 kg/m2 [facility] ([facility]) Body height 154 cm 154 cm [facility] Body weight 90 kg 90 kg [facility] Systolic blood pressure 127 mm[Hg] 127 mm[Hg] C ure[facility] ([facility]) Diastolic blood pressure 79 mm[Hg] 79 mm[Hg] [facility] ([facility]) Heart rate 73 /min 73 /min [facility] Body mass index (BMI) [Ratio] 37.78 kg/m2 37.78 kg/m2 [facility] ([facility]) Body height 154 cm 154 cm [facility] Body weight 90 kg 90 kg [facility] Systolic blood pressure 107 mm[Hg] 107 mm[Hg] C [facility] ([facility]) Diastolic blood pressure 68 mm[Hg] 68 mm[Hg] [facility] ([facility]) Heart rate 69 /min 69 /min [facility] Systolic blood pressure 129 mm[Hg] 129 mm[Hg] e CW1 ([facility]) Body weight 220.6 [lb_av] 220.6 [lb_av] eCW1 ([facility]) Body height 61 [in_i] 61 [in_i] eCW1 ([facility]) Body mass index (BMI) [Ratio] 41.68 kg/m2 41.68 kg/m2 W1 ([facility]) Heart rate 75 /min 75 /min eCW1 ([facility]) Respiratory rate 18 /min 18 /min eCW1 ([facility]) Body temperature 97.5 [degF] 97.5 [degF] eCW1 ( [facility]) Diastolic blood pressure 77 mm[Hg] 77 mm[Hg] eCW1 ([facility]) Respiratory rate 12 /min 12 /min MEDENT ( [facility], ) Body weight 200.00 [lb_av] 200.00 [lb_av] MEDEN T ([facility], ) Body height 62.5 [in_i] 62.5 [in_i] MEDENT ([facility], ) 5'2.50" Body mass index (BMI) [Ratio] 36.0 kg/m2 36.0 k g/m2 [facility] ([facility]) [place] body weight 110 [lb_av] 110 [lb_av] MEDEN T ([facility]) Systolic blood pressure 118 mm[Hg] 118 mm[Hg] M EDENT ([facility]) Diastolic blood pressure 76 mm[Hg] 76 mm[Hg] [facility] ([facility]) Heart rate 87 /min 87 /min [facility] ([facility]) Oxygen saturation in Arterial blood by Pulse oximetry 95 % 95 % [facility] ([facility]) Body height 61 [in_i] 61 [in_i] [facility] ([facility]) 5'1" Body weight 220.00 [lb_av] 220.00 [facility]av[facility] Body mass index (BMI) [Ratio] 41.6 kg/m2 41.6 k g/m2 [facility] ([facility]) [place] body weight 105 [lb_av] 105 [lb_av] [facility] Body weight 99.792 kg 99.792 kg [facility] ([facility]) Body surface area Derived from formula 1.97 m2 1.97 m2 [facility] ([facility]) Body weight 203 [lb_av] 203 [lb_av] eCW1 ([facility]) Diastolic blood pressure 77 mm[Hg] 77 mm[Hg] eCW1 ([facility]) Body height 61 [in_i] 61 [in_i] eCW1 ([facility]) Body mass index (BMI) [Ratio] 38.35 kg/m2 38.35 kg/m2 W1 ([facility]) Heart rate 71 /min 71 /min eCW1 ([facility]) Respiratory rate 18 /min 18 /min eCW1 ([facility]) Body temperature 97.9 [degF] 97.9 [degF] eCW1 ( [facility]) Systolic blood pressure 122 mm[Hg] 122 mm[Hg] e CW1 ([facility]) Body mass index (BMI) [Ratio] 36.0 kg/m2 36.0 k g/m2 MEDENT ([facility], ) [place] body weight 110 [lb_av] 110 [lb_av] MEDEN T ([facility], ) Body height 62.5 [in_i] 62.5 [in_i] MEDENT ([facility], ) 5'2.50" Body weight 200.00 [lb_av] 200.00 [lb_av] MEDEN T ([facility], ) Respiratory rate 12 /min 12 /min MEDENT ( [facility]) Body weight 216 [lb_av] 216 [lb_av] eCW1 ([facility]) Body height 61 [in_i] 61 [in_i] eCW1 ([facility]) Body mass index (BMI) [Ratio] 40.81 kg/m2 40.81 kg/m2 eCW1 ([facility]) Heart rate 74 /min 74 /min eCW1 ([facility]) Respiratory rate 20 /min 20 /min eCW1 ([facility]) Body temperature 98.6 [degF] 98.6 [degF] eCW1 ( [facility]) Systolic blood pressure 122 mm[Hg] 122 mm[Hg] e CW1 ([facility]) Diastolic blood pressure 75 mm[Hg] 75 mm[Hg] eCW1 ([facility]) Respiratory rate 12 /min 12 /min MEDENT ( [facility]) Body height 62.5 [in_i] 62.5 [in_i] MEDENT ([facility], ) 5'2.50" Body weight 200.00 [lb_av] 200.00 [lb_av] MEDEN T ([facility], ) Body mass index (BMI) [Ratio] 36.0 kg/m2 36.0 k g/m2 MEDENT ([facility], ) [place] body weight 110 [lb_av] 110 [lb_av] MEDEN T ([facility], ) Patient Treatment Plan of Care Planned Activity Planned Date Details Description Data Source (s) Cholecalciferol [id number] UNT Oral Capsule 12/08/2020 12:00:00 AM EDT [facility] ([facility]) Calcium 600 MG 11/23/2020 12:00:00 AM EDT eCW1 ([facility]) Ergocalciferol 12582 UNT Oral Capsule [Drisdol] 11/23/2020 12:00:00 AM EDT eCW1 ([facility]) Flonase Allergy Relief 50 MCG/ACT 11/23/2020 12:00:00 AM EDT eCW1 ([facility])
[2021-01-23] MEDS ORDERED: MORPHINE 2 MG/ML 1ML VIAL (J2270) IV ONE (12:30)
[2021-01-23] MEDS ORDERED: CALC600T86 PO (12:33)
[2021-01-23] MEDS ORDERED: ONDA4TAB6 PO (12:33)
[2021-01-23] MEDS ORDERED: PREG25CA2 PO (12:33)
[2021-01-23] MEDS ORDERED: ERGO500029 PO (12:33)
[2021-01-23] MEDS ORDERED: FAMO40TA3 PO (12:33)
[2021-01-23] MEDS ORDERED: PANT40TA29 PO (12:33)
[2021-01-23 13:04] LABS: BASO # 0.1 10^3/uL (0.0-0.2); BASO % 0.6 % (0.0-1.0); EOS # 0.3 10^3/uL (0.0-0.5); EOS % 2.3 % (0.0-3.0); HEMATOCRIT 37.5 % (36.0-47.0); HEMOGLOBIN 11.8 g/dl (12.0-15.5); LYMPH # 1.1 10^3/uL (1.5-5.0); LYMPH % 7.4 % (24.0-44.0); MEAN CORPUSCULAR HEMOGLOBIN 29.6 pg (27.0-33.0); MEAN CORPUSCULAR HGB CONC 31.5 g/dl (32.0-36.5); MONO # 1.2 10^3/uL (0.0-0.8); MONO % 8.4 % (2.0-8.0); NEUTROPHILS # 11.4 10^3/uL (1.5-8.5); NEUTROPHILS % 80.9 % (36.0-66.0); PLATELET COUNT, AUTOMATED 329 10^3/uL (150-450); RED BLOOD COUNT 3.99 10^6/uL (4.00-5.40); WHITE BLOOD COUNT 14.1 10^3/uL (4.0-10.0)
[2021-01-23] MEDS ORDERED: ISOVUE-370 76% 100ML VIAL As Ordered ONE (13:10)
--- OUTSIDE RECORDS SUMMARY | 2021-01-23 13:33 | CCD ---
Author Author [facility] Organization [facility] Address Unknown Phone Unavailable Care Team Providers Care Residential Roofer Helper Name Role Phone Abebe, L Maureen STAMPING MACHINE OPERATOR Unavailable Unavailable Abebe, L Maureen STAMPING MACHINE OPERATOR Unavailable Unavailable Abebe, L Maureen STAMPING MACHINE OPERATOR Unavailable Unavailable Abebe, L Maureen STAMPING MACHINE OPERATOR Unavailable Unavailable Abebe, L Maureen STAMPING MACHINE OPERATOR Unavailable Unavailable Abebe, L Maureen STAMPING MACHINE OPERATOR Unavailable Unavailable Abebe, L Maureen STAMPING MACHINE OPERATOR Unavailable Unavailable Abebe, L Maureen STAMPING MACHINE OPERATOR Unavailable Unavailable Abebe, L Maureen STAMPING MACHINE OPERATOR Unavailable Unavailable Abebe, L Maureen STAMPING MACHINE OPERATOR Unavailable Unavailable Abebe, L Maureen STAMPING MACHINE OPERATOR Unavailable Unavailable Abebe, L Maureen STAMPING MACHINE OPERATOR Unavailable Unavailable Abebe, L Maureen STAMPING MACHINE OPERATOR Unavailable Unavailable Abebe, L Maureen STAMPING MACHINE OPERATOR Unavailable Unavailable Abebe, L Maureen STAMPING MACHINE OPERATOR Unavailable Unavailable Abebe, L Maureen STAMPING MACHINE OPERATOR Unavailable Unavailable Abebe, L Maureen STAMPING MACHINE OPERATOR Unavailable Unavailable Abebe, L Maureen STAMPING MACHINE OPERATOR Unavailable Unavailable Abebe, L Maureen STAMPING MACHINE OPERATOR Unavailable Unavailable Abebe, L Maureen STAMPING MACHINE OPERATOR Unavailable Unavailable Abebe, L Maureen STAMPING MACHINE OPERATOR Unavailable Unavailable Abebe, L Maureen STAMPING MACHINE OPERATOR Unavailable Unavailable Abebe, L Maureen STAMPING MACHINE OPERATOR Unavailable Unavailable Abebe, L Maureen STAMPING MACHINE OPERATOR Unavailable Unavailable Abebe, L Maureen STAMPING MACHINE OPERATOR Unavailable Unavailable Marcia Mccloud MD Unavailable Unavailable [...] Unavailable Unavailable Marcia Mccloud MD Unavailable Unavailable Jimmy Stoner MD [...] is protected by Article 27-F of the [facility] Public Health law. If you continue you may have access to information: Regarding HIV / AIDS; Provided by facilities licensed or operated by the [facility] Office of Mental Health; or Provided by the [facility] Office for People With Developmental Disabilities. If such information is present, then the following [facility] mandated warning applies: This information [...] may result in a fine or senior living sentence or both. A general authorization for the release of medical or other information is NOT sufficient authorization for further disc losure. Family History Family Member Name Family Member Gender Family Member Status Date o f Status Description Data Source(s) Unknown Unknown Problem MEDENT ([facility]) Unknown Unknown Problem MEDENT ([facility]) Unknown Unknown Problem MEDENT ([facility]) Unknown Unknown Problem MEDENT ([facility]) Encounters Encounter Providers Location Date Indications Data Source(s ) Outpatient Attender: Isaac Mccloud MD 12/28/2020 11:09: 00 AM EDT Cure ([facility]) Outpatient Attender: Isaac Mccloud MD 12/06/2020 11:15: 00 AM EDT Kamlesh ([facility]) Outpatient Attender: Isaac Mccloud MD 12/01/2020 02:58: 00 PM EDT Kamlesh ([facility]) Outpatient [address] [facility] [place] [address] 11/23/2020 12:00:00 AM EDT eCW1 ([facility]) Outpatient Attender: Jamel Stoner MD [facility] 10/11/2020 10:45:00 AM EDT MEDENT ([facility]) Outpatient Attender: Maureen Olsen/Phi/Kenneth/Reindl 10/11/2020 09:00:00 AM EDT MEDENT ([facility]) Unknown [address] [facility] [place] [address] 10/10/2020 12:00:00 AM EDT eCW1 ([facility]) Unknown [address] [facility] [place] [address] 08/15/2020 12:00:00 AM EDT eCW1 ([facility]) Outpatient [address] [facility] [place] [address] 07/19/2020 12:00:00 AM EDT eCW1 ([facility]) Unknown [address] [facility] [place] [address] 07/18/2020 12:00:00 AM EDT eCW1 ([facility]) Outpatient Attender: Jamel Stoner MD [facility] 06/13/2020 11:45:00 AM EDT MEDENT ([facility], ) Outpatient [address] [facility] [place] [address] 04/06/2020 12:00:00 AM EST eCW1 ([facility]) Unknown [address] [facility] [place] [address] 03/25/2020 12:00:00 AM EST eCW1 ([facility]) Unknown [address] [facility] [place] [address] 03/01/2020 12:00:00 AM EST eCW1 ([facility]) Outpatient Attender: Jamel Stoner MD [facility] 02/23/2020 10:15:00 AM EST MEDENT ([facility]) Unknown [address] [facility] [place] [address] 01/19/2020 12:00:00 AM EST eCW1 ([facility]) Unknown [address] [facility] [place] [address] 01/04/2020 12:00:00 AM EST eCW1 ([facility]) Immunizations Vaccine Date Status Description Data Source(s) COVID-19 dose #2 given elsewhere Unspecified 04/25/2020 03:5 2:00 PM EST completed eCW1 ([facility]) COVID-19 dose #2 given elsewhere Unspecified 04/25/2020 03:5 2:00 PM EST completed eCW1 ([facility]) COVID-19 dose #2 given elsewhere Unspecified 04/25/2020 03:5 2:00 PM EST completed eCW1 ([facility]) COVID-19 dose #2 given elsewhere Unspecified 04/25/2020 03:5 2:00 PM EST completed eCW1 ([facility]) COVID-19 dose #2 given elsewhere Unspecified 04/25/2020 03:5 2:00 PM EST completed eCW1 ([facility]) COVID-19 VACCINE Moderna 04/25/2020 12:00:00 AM EST completed [facility] Vaccine Series Complete: YESThis Data wa s Submitted to [facility] Via [facility]. COVID-19 VACCINE, MRNA-1273, LNP-S (MODERNA)/PF 04/25/2020 1 2:00:00 AM EST completed [facility] COVID-19 dose #1 given elsewhere Unspecified 03/30/2020 03:5 2:00 PM EST completed eCW1 ([facility]) COVID-19 dose #1 given elsewhere Unspecified 03/30/2020 03:5 2:00 PM EST completed eCW1 ([facility]) COVID-19 dose #1 given elsewhere Unspecified 03/30/2020 03:5 2:00 PM EST completed eCW1 ([facility]) COVID-19 dose #1 given elsewhere Unspecified 03/30/2020 03:5 2:00 PM EST completed eCW1 ([facility]) COVID-19 dose #1 given elsewhere Unspecified 03/30/2020 03:5 2:00 PM EST completed eCW1 ([facility]) COVID-19 VACCINE Moderna 03/30/2020 12:00:00 AM EST completed [facility] Vaccine Series Complete: NOThis Data was Submitted to [facility] Via Self-A-r-T. COVID-19 VACCINE, MRNA-1273, LNP-S (MODERNA)/PF 03/30/2020 1 [...] EVERY DAY SOLD: 01/02/2021 [facility] Cholecalciferol 95977 UNT Oral Capsule Vitamin D3 1.25 MG (95179 UT) Oral Capsule 12/08/2020 12:00:00 AM EDT [...] BY MOUTH EVERY WEEK SOLD: 12/25/2020 [facility] Calcium 600 MG Calcium 600 MG 11/23/2020 12:00:00 AM EDT 1.0 {tablet_with_meals} active Calcium 600 MG eCW1 ([facility]) 1,250 mcg (50,000 unit) 11/23/2020 12:00:00 AM EDT capsule 4 TAKE 1 CAPSULE BY MOUTH EVERY WEEK TAKE 1 CAPSULE BY MOUTH EVERY WEEK SOLD: 01/15/2021 [facility] Fluticasone propionate 0.05 MG/ACTUAT Metered Dose Oswaldo al [place] 50 mcg/actuation FLUTICASONE PROPIONATE 11/23/2020 12:00:00 AM EDT spray,suspension 16 SPRAY 1 SPRAY IN EACH NOSTRIL ONCE DAILY SPRAY 1 SPRAY IN EACH NOSTRIL ONCE DAILY SOLD: 11/23/2020 [facility] Flonase Allergy Relief 50 MCG/ACT Flonase Allergy Relief 50 MCG/ACT 11/23/2020 12:00:00 AM EDT 1.0 {spray_in_each_nostril} acti ve Flonase Allergy Relief 50 MCG/ACT eCW1 ([facility]) Ergocalciferol 18085 UNT Oral Capsule [Drisdol] Drisdo l 1.25 MG (28520 UT) Drisdol 1.25 MG (55520 UT) 11/23/2020 12:00:00 AM EDT 1.0 {capsule} active Drisdol 1.25 MG (44722 UT) eCW1 ([facility]) 200 mg 11/18/2020 12:00:00 AM EDT capsule [...] AM EDT tablet,delayed release (DR/EC) 180 T CARMELAL ONE TABLET BY MOUTH TWICE A DAY [...] 4 TIMES A DAY SOLD: 06/2019 [facility] [employer] pantoprazole 40 MG Delayed Release Oral Tablet PANTOPRAZOLE SODIUM 02/04/2020 12:00:00 AM EST tablet,delayed release (DR/EC) 180 T CARMELLA 1 TABLET BY MOUTH TWO TIMES A DAY TAKE 1 TABLET BY MOUTH TWO TIMES A DAY SOLD: 05/02/2020 [facility] pantoprazole 40 MG Delayed Release Oral Tablet [...] type / Coverage type Policy ID Covered libertarian ID Covered libertarian's relationship to gonzalez Policy Gonzalez Plan Information [facility] Part B [id number] Self Y [id number] [facility] [id number] 0 [id number] MEDICARE [id number] SP [id number] A HU[employer] CLAIMS (PFFS) [id number] [employer] Commercial [id number] 7364.0 Self [id number] [employer] Commercial [id number] 7364.0 Self [id number] [employer] Commercial [id number] 7364.0 Self [id number] [employer] Commercial [id number] 7364.0 Self [id number] [employer] Commercial [id number] 7364.0 Self [id number] Medicare Part B [facility] [id number] 0 [id number] [facility] Option [id number] 0 [id number] Today's Options Medicare Commercial [id number] Self [id number] Today's Options Medicare Commercial [id number] Self [id number] Today[employer] Options Medicare Commercial [id number] Self [id number] Today[employer] Options Medicare Commercial [id number] Self [id number] TODAYS OPTIONS [id number] SP [id number] Today's Options Medicare Commercial [id number] Self [employer] Medigap Part B [id number] 2638.0 Self [id number] [employer] Medigap Part B [id number] 2638.0 Self [id number] [employer] C[employer] OPTIONS [id number] [facility] [id number] 18 [id number] ANSI-Commercial [id number] Medicare [facility] Medicare Primary [id number] Self [id number] ANSI-Medicare Part B [id number] ANSI-Commercial [id number] ANSI-Commercial [id number] ANSI-Medicare Part B [id number] ANSI-Commercial [id number] ANSI-Medicare Part B [id number] [facility] [id number] 2638.0 Self [id number] Medicare [facility] Medicare Primary [id number] Self [id number] [facility] [id number] 2638.0 Self [id number] [place] Medicare Primary [id number] Self [id number] [employer] Medigap Part B [id number] 2638.0 Self [id number] [place] Medicare Primary [id number] Self [id number] [employer] Medigap Part B [id number] 2638.0 Self [id number] [place] Medicare Primary [id number] Self [id number] [employer] Medigap Part B [id number] 2638.0 Self [id number] [place] Medicare Primary [id number] Self [id number] TODAYS OPTIONS [id number] SP [id number] TODAYS OPTIONS [id number] SP [id number] [employer] Medigap Part B [id number] 38.0 Self Medicare [place] Medicare Primary [id number] Self TODAYS OPTIONS [id number] SP [id number] [employer] CARE OPTIONS [id number] SP [id number] [employer] Options Medigap Part B [id number] Self Medicare [facility] Medicare Primary [id number] Self AARP O [id number] S [id number] MEDICARE C [id number] S [id number] A MEDICARE [id number] SP [id number] HU[employer]NA PPO [id number] SP [id number] HUMANA GOLD [id number] SP [id number] HUMANA PPO [id number] SP [id number] WELLCARE [id number] SP [id number] WELLCARE [id number] SP [id number] WELLCARE O [id number] S [id number] MEDICARE [id number] SP [id number] [facility] [facility] OPTIONS [id number] SP [id number] MEDICAID UNAVAILABLE UNAVAILA BLE ANSI-Medicare Part B [id number] ANSI-Commercial [id number] ANSI-Medicare Part B [id number] ANSI-Commercial [id number] ANSI-Commercial [id number] ANSI-Medicare Part B [id number] MEDICARE [id number] SP [id number] A Medicare [place] Medicare Primary [id number] Self [id number] ANSI-Commercial [id number] ANS-Medicare Part B [id number] ANS-Medicare Part B [id number] ANSI-Commercial [id number] ANSI-Medicare Part B [id number] ANSI-Commercial [id number] ANSI-Medicare Part B [id number] Problems, Conditions, and Diagnoses Code Display Name Description Problem Type Effective Dates Data Source(s) M81.0 70064415 Osteoporosis, unspec ified osteoporosis type, unspecified pathological fracture presence Problem 11/23/2020 12:00:00 AM EDT eC W1 ([facility]) M25.561 Pain in right knee Pain in right knee Diagnosis 12:00:00 AM EDT CureMD ([facility]) I16.0 [id number] Asymptomatic hypertensive urgency Problem 04/06/2020 12:00:00 AM EST eCW1 ([facility]) Surgeries/Procedures Procedure Description Date Indications Data Source(s) OFFICE OUTPATIENT VISIT 25 MINUTES 10/11/2020 12:00:00 AM EDT MEDENT ([facility] ) OFFICE OUTPATIENT VISIT 15 MINUTES 10/11/2020 12:00:00 AM EDT MEDENT ([facility], ) OFFICE OUTPATIENT VISIT 15 MINUTES 06/13/2020 12:00:00 AM EDT MEDENT ([facility], ) ECG ROUTINE ECG W/LEAST 12 LDS W/I&R 04/06/2020 12:00: 00 AM EST eCW1 ([facility]) Results ID Date Data Source [id number] 03/24/2020 09:05:00 PM EST [facility] Name Value Range Interpretation Code Description Data Gina rce(s) Supporting Document(s) SARS coronavirus 2 RNA [Presence] in Res piratory specimen by ALLAN with probe detection NEGATIVE [facility] This lab was ordered by [facility] a nd reported by [facility]. Procedure Social History Code Duration Value Status Description Data Source(s ) Smoking 11/23/2020 12:00:00 AM EDT Never Smoker completed Never S moker eCW1 ([facility]) Smoking 10/11/2020 12:00:00 AM EDT Patient has never smoked co mpleted Patient has never smoked MEDENT ([facility], ) Smoking 07/19/2020 12:00:00 AM EDT Never Smoker completed Never S moker eCW1 ([facility]) Smoking 07/19/2020 12:00:00 AM EDT Never Smoker completed Never S moker eCW1 ([facility]) Smoking 07/19/2020 12:00:00 AM EDT Never Smoker completed Never S moker eCW1 ([facility]) Smoking 07/19/2020 12:00:00 AM EDT Never Smoker completed Never S moker eCW1 ([facility]) Smoking 04/06/2020 12:00:00 AM EST Never Smoker completed Never S moker eCW1 ([facility]) Vital Signs ID Date Data Source [...] ([facility]) Body weight 220.6 [lb_av] 220.6 [lb_av] eCW1 ([facility]) Body height 61 [in_i] 61 [in_i] eCW1 ([facility]) Body mass index (BMI) [Ratio] 41.68 kg/m2 41.68 kg/m2 [facility] ([facility]) Heart rate 75 /min 75 /min eCW1 ([facility]) Respiratory rate 18 /min 18 /min eCW1 ([facility]) Body temperature 97.5 [degF] 97.5 [degF] eCW1 ( [facility]) Systolic blood pressure 129 mm[Hg] 129 mm[Hg] e CW1 ([facility]) Diastolic blood pressure 77 mm[Hg] 77 mm[Hg] eCW1 ([facility]) Respiratory rate 12 /min 12 /min MEDENT ( [facility]) Body height 62.5 [in_i] 62.5 [in_i] MEDENT ([facility]) 5'2.50" Body weight 200.00 [lb_av] 200.00 [lb_av] MEDEN T ([facility]) Body mass index (BMI) [Ratio] 36.0 kg/m2 36.0 k g/m2 [place] ([facility]) [place] body weight 110 [lb_av] 110 [lb_av] MEDEN T ([facility]) Systolic blood pressure 118 mm[Hg] 118 mm[Hg] M EDENT ([facility]) Diastolic blood pressure 76 mm[Hg] 76 mm[Hg] [facility]) Heart rate 87 /min 87 /min [place] ([facility]) Oxygen saturation in Arterial blood by Pulse oximetry 95 % 95 % [place] ([facility]) Body height 61 [in_i] 61 [in_i] [place] ([facility]) 5'1" Body weight 220.00 [lb_av] 220.00 [lb_av] MEDEN T ([facility]) Body mass index (BMI) [Ratio] 41.6 kg/m2 41.6 k g/m2 [place] ([facility]) [place] body weight 105 [lb_av] 105 [facility]_av[facility] Body weight 99.792 kg 99.792 kg [place] ([facility]) Body surface area Derived from formula 1.97 m2 1.97 m2 [place] ([facility]) Body weight 203 [lb_av] 203 [lb_av] eCW1 ([facility]) Body height 61 [in_i] 61 [in_i] eCW1 ([facility]) Body mass index (BMI) [Ratio] 38.35 kg/m2 38.35 kg/m2 eCW1 ([facility]) Heart rate 71 /min 71 /min eCW1 ([facility]) Respiratory rate 18 /min 18 /min eCW1 ([facility]) Body temperature 97.9 [degF] 97.9 [degF] eCW1 ( [facility]) Systolic blood pressure 122 mm[Hg] 122 mm[Hg] e CW1 ([facility]) Diastolic blood pressure 77 mm[Hg] 77 mm[Hg] eCW1 ([facility]) Body height 62.5 [in_i] 62.5 [in_i] MEDENT ([facility], ) 5'2.50" Body weight 200.00 [lb_av] 200.00 [lb_av] MEDEN T ([facility], ) [place] body weight 110 [lb_av] 110 [lb_av] MEDEN T ([facility], ) Body mass index (BMI) [Ratio] 36.0 kg/m2 36.0 k g/m2 MEDENT ([facility], ) Respiratory rate 12 /min 12 /min MEDENT ( [facility], ) Body weight 216 [lb_av] 216 [lb_av] eCW1 ([facility]) Body height 61 [in_i] 61 [in_i] eCW1 ([facility]) Body mass index (BMI) [Ratio] 40.81 kg/m2 40.81 kg/m2 eCW1 ([facility]) Heart rate 74 /min 74 /min eCW1 ([facility]) Respiratory rate 20 /min 20 /min eCW1 ([facility]) Body temperature 98.6 [degF] 98.6 [degF] eCW1 ( [facility]) Systolic blood pressure 122 mm[Hg] 122 mm[Hg] e CW1 ([facility]) Diastolic blood pressure 75 mm[Hg] 75 mm[Hg] eCW1 ([facility]) Respiratory rate 12 /min 12 /min MEDENT ( [facility], ) Body height 62.5 [in_i] 62.5 [in_i] MEDENT ([facility], ) 5'2.50" Body weight 200.00 [lb_av] 200.00 [lb_av] MEDEN T ([facility], ) Body mass index (BMI) [Ratio] 36.0 kg/m2 36.0 k g/m2 MEDENT ([facility], ) [place] body weight 110 [lb_av] 110 [lb_av] MEDEN T ([facility], ) Patient Treatment Plan of Care Planned Activity Planned Date Details Description Data Source (s) Cholecalciferol 81417 UNT Oral Capsule 12/08/2020 12:00:00 AM EDT [facility] ([facility]) Calcium 600 MG 11/23/2020 12:00:00 AM EDT eCW1 ([facility]) Ergocalciferol 89776 UNT Oral Capsule [Drisdol] 11/23/2020 12:00:00 AM EDT eCW1 ([facility]) Flonase Allergy Relief 50 MCG/ACT 11/23/2020 12:00:00 AM EDT eCW1 ([facility])
[2021-01-23 13:35] LABS: ALBUMIN 3.8 GM/DL (3.2-5.2); BILIRUBIN,DIRECT 0.1 MG/DL (0.0-0.2); BILIRUBIN,TOTAL 0.5 MG/DL (0.2-1.0); C REACTIVE PROTEIN QUANTITATIV 3.42 MG/DL (0.00-0.30)
[2021-01-23 14:00] LABS: ERYTHROCYTE SEDIMENTATION RATE 65 mm/hr (0-30)
[2021-01-23] MEDS ORDERED: AMPICILLIN SOD/SULBACTAM SOD 3 GM in D5W MINI-BAG PLUS 100 ML IV ONE (14:00)
--- NOTE | 2021-01-23 14:07 | REPVR ---
PROCEDURE INFORMATION: Exam: CT Neck With Contrast Exam date and time: 01/23/2021 12:46 PM Age: 75 years old Clinical indication: Mass, lump, or swelling in neck; Right; Additional info: Right lower dental pain/swellling; ? Abscess TECHNIQUE: Imaging protocol: Computed tomography images of the neck with contrast. Radiation optimization: All CT scans at this facility use at least one of these dose optimization techniques: automated exposure control; mA and/or kV adjustment per patient size (includes targeted exams where dose is matched to clinical indication); or iterative reconstruction. Contrast material: ISOVUE 370; Contrast volume: 75 ml; Contrast route: INTRAVENOUS (IV); COMPARISON: CT Neck without contrast 11/21/2015 4:56 PM FINDINGS: Nasopharynx: Unremarkable. Dental: Abnormal periapical lucency involves right mandibular molar number 31, compatible with severe periodontal disease and abscess. Oropharynx: Unremarkable. No significant tonsillar enlargement. Hypopharynx: Unremarkable. Larynx: Unremarkable. Normal epiglottis. Retropharyngeal space: Unremarkable. Submandibular/Parotid glands: Normal. Glands are normal in size. Thyroid: There is a 10 mm hypodensity within the left posterior thyroid lobe. Lymph nodes: Unremarkable. No lymphadenopathy. Trachea: Visualized trachea is unremarkable. Lungs: Unremarkable as visualized. Bones/joints: Unremarkable. No acute fracture. Soft tissues: There is right facial soft tissue induration, compatible with cellulitis. IMPRESSION: Right facial cellulitis, odontogenic and related to abscess of right mandibular molar 31. COMMENTS: Consistent with the [employer]'s Incidental Findings Committee white paper (J Am Tejas Radiol 2015): In patients aged 35 years and older with an incidental thyroid nodule equal to or greater than 1.[address], MRI or extrathyroidal US, further evaluation with dedicated thyroid US is recommended for patients with normal life expectancy and without comorbidities. For smaller nodules without suspicious features, no further evaluation or follow up is recommended. Electronically signed by: Linda Flores On 01/23/2021 14:06:40 PM
[2021-01-23] MEDS ORDERED: ACETAMINOPHEN 325 MG TAB PO ONE (15:00)
--- OUTSIDE RECORDS SUMMARY | 2021-01-23 15:08 | CCD ---
Author Author [facility] Organization [facility] Address Unknown Phone Unavailable Care Team Providers Care Ribbon Hand Name Role Phone Abebe, L Maureen TOOLING MECHANIC Unavailable Unavailable Abebe, L Maureen TOOLING MECHANIC Unavailable Unavailable Abebe, L Maureen TOOLING MECHANIC Unavailable Unavailable Abebe, L Maureen TOOLING MECHANIC Unavailable Unavailable Abebe, L Maureen TOOLING MECHANIC Unavailable Unavailable Abebe, L Maureen TOOLING MECHANIC Unavailable Unavailable Abebe, L Maureen TOOLING MECHANIC Unavailable Unavailable Abebe, L Maureen TOOLING MECHANIC Unavailable Unavailable Abebe, L Maureen TOOLING MECHANIC Unavailable Unavailable Abebe, L Maureen TOOLING MECHANIC Unavailable Unavailable Abebe, L Maureen TOOLING MECHANIC Unavailable Unavailable Abebe, L Maureen TOOLING MECHANIC Unavailable Unavailable Abebe, L Maureen TOOLING MECHANIC Unavailable Unavailable Abebe, L Maureen TOOLING MECHANIC Unavailable Unavailable Abebe, L Maureen TOOLING MECHANIC Unavailable Unavailable Abebe, L Maureen TOOLING MECHANIC Unavailable Unavailable Abebe, L Maureen TOOLING MECHANIC Unavailable Unavailable Abebe, L Maueren TOOLING MECHANIC Unavailable Unavailable Abebe, L Maureen TOOLING MECHANIC Unavailable Unavailable Abebe, L Maureen TOOLING MECHANIC Unavailable Unavailable Abebe, L Maureen TOOLING MECHANIC Unavailable Unavailable Abebe, L Maureen TOOLING MECHANIC Unavailable Unavailable Abebe, L Maureen TOOLING MECHANIC Unavailable Unavailable Abebe, L Maureen TOOLING MECHANIC Unavailable Unavailable Abebe, L Maureen TOOLING MECHANIC Unavailable Unavailable Marcia Mccloud MD Unavailable Unavailable [...] Stoner MD Unavailable Unavailable Herbie O Jamel AMRADIAGA Unavailable Unavailable Jimmy Stoner MD Unavailable Unavailable Herbie O Jamel MARADIAGA Unavailable Unavailable Hrebie, O Jamel MARADIAGA Unavailable Unavailable Herbie O [...] is protected by Article 27-F of the [facility] Public Health law. If you continue you may have access to information: Regarding HIV / AIDS; Provided by facilities licensed or operated by the [facility] Office of Mental Health; or Provided by the [facility] Office for People With Developmental Disabilities. If such information is present, then the following [facility] mandated warning applies: This information has [...] law may result in a fine or mcfp sentence or both. A general authorization for the release of medical or other information is NOT sufficient authorization for further disc losure. Family History Family Member Name Family Member Gender Family Member Status Date o f Status Description Data Source(s) Unknown Unknown Problem MEDENT ([facility]) Unknown Unknown Problem MEDENT ([facility]) Unknown Unknown Problem MEDENT ([facility]) Unknown Unknown Problem MEDENT ([facility]) Encounters Encounter Providers Location Date Indications Data Source(s ) Outpatient Attender: Isaac Mccloud MD 12/28/2020 11:09: 00 AM EDT Cure ([facility]) Outpatient Attender: Isaac Mccloud MD 12/06/2020 11:15: 00 AM EDT Kamlesh ([facility]) Outpatient Attender: Isaac Mccloud MD 12/01/2020 02:58: 00 PM EDT Kamlesh ([facility]) [place] [address] [address] 11/23/2020 12:00:00 AM EDT eCW1 ([facility]) Outpatient Attender: Jamel Stoner MD [facility] 10/11/2020 10:45:00 AM EDT MEDENT ([facility]) Outpatient Attender: Maureen Olsen/Phi/Kenneth/Reindl 10/11/2020 09:00:00 AM EDT MEDENT ([facility]) [place] [address] [address] 10/10/2020 12:00:00 AM EDT eCW1 ([facility]) [place] [address] [address] 08/15/2020 12:00:00 AM EDT eCW1 ([facility]) [place] [address] [facility] [address] 07/19/2020 12:00:00 AM EDT eCW1 ([facility]) [place] [address] [address] 07/18/2020 12:00:00 AM EDT eCW1 ([facility]) Outpatient Attender: Jamel Stoner MD [facility] 06/13/2020 11:45:00 AM EDT MEDENT ([facility], ) [place] [address] [address] 04/06/2020 12:00:00 AM EST eCW1 ([facility]) [place] [address] [facility] [address] 03/25/2020 12:00:00 AM EST eCW1 ([facility]) [place] [address] [facility] [address] 03/01/2020 12:00:00 AM EST eCW1 ([facility]) Outpatient Attender: Jamel Stoner MD [facility] 02/23/2020 10:15:00 AM EST MEDENT ([facility]) [place] [address] [facility] [address] 01/19/2020 12:00:00 AM EST eCW1 ([facility]) [place] [address] [address] 01/04/2020 12:00:00 AM EST eCW1 ([facility]) Immunizations Vaccine Date Status Description Data Source(s) COVID-19 dose #2 given elsewhere Unspecified 04/25/2020 03:5 2:00 PM EST completed eCW1 ([facility]) COVID-19 dose #2 given elsewhere Unspecified 04/25/2020 03:5 2:00 PM EST completed eCW1 ([facility]) COVID-19 dose #2 given elsewhere Unspecified 04/25/2020 03:5 2:00 PM EST completed eCW1 ([facility]) COVID-19 dose #2 given elsewhere Unspecified 04/25/2020 03:5 2:00 PM EST completed eCW1 ([facility]) COVID-19 dose #2 given elsewhere Unspecified 04/25/2020 03:5 2:00 PM EST completed eCW1 ([facility]) COVID-19 VACCINE Moderna 04/25/2020 12:00:00 AM EST completed [facility] Vaccine Series Complete: YESThis Data wa s Submitted to [facility] Via [facility]IS. COVID-19 VACCINE, MRNA-1273, LNP-S (MODERNA)/PF 04/25/2020 1 2:00:00 AM EST completed [facility] COVID-19 dose #1 given elsewhere Unspecified 03/30/2020 03:5 2:00 PM EST completed eCW1 ([facility]) COVID-19 dose #1 given elsewhere Unspecified 03/30/2020 03:5 2:00 PM EST completed eCW1 ([facility]) COVID-19 dose #1 given elsewhere Unspecified 03/30/2020 03:5 2:00 PM EST completed eCW1 ([facility]) COVID-19 dose #1 given elsewhere Unspecified 03/30/2020 03:5 2:00 PM EST completed eCW1 ([facility]) COVID-19 dose #1 given elsewhere Unspecified 03/30/2020 03:5 2:00 PM EST completed eCW1 ([facility]) COVID-19 VACCINE Moderna 03/30/2020 12:00:00 AM EST completed [facility] Vaccine Series Complete: NOThis Data was Submitted to [facility] Via TrackIF. COVID-19 VACCINE, MRNA-1273, LNP-S (MODERNA)/PF 03/30/2020 1 [...] EVERY DAY SOLD: 01/02/2021 [facility] Cholecalciferol 31409 UNT Oral Capsule Vitamin D3 1.25 MG (22253 UT) Oral Capsule 12/08/2020 12:00:00 AM EDT [...] BY MOUTH EVERY WEEK SOLD: 12/25/2020 [facility] Calcium 600 MG Calcium 600 MG 11/23/2020 12:00:00 AM EDT 1.0 {tablet_with_meals} active Calcium 600 MG eCW1 ([facility]) 1,250 mcg (50,000 unit) 11/23/2020 12:00:00 AM EDT capsule 4 TAKE 1 CAPSULE BY MOUTH EVERY WEEK TAKE 1 CAPSULE BY MOUTH EVERY WEEK SOLD: 01/15/2021 [facility] Fluticasone propionate 0.05 MG/ACTUAT Metered Dose Oswaldo al [place] 50 mcg/actuation FLUTICASONE PROPIONATE 11/23/2020 12:00:00 AM EDT spray,suspension 16 SPRAY 1 SPRAY IN EACH NOSTRIL ONCE DAILY SPRAY 1 SPRAY IN EACH NOSTRIL ONCE DAILY SOLD: 11/23/2020 [facility] Flonase Allergy Relief 50 MCG/ACT Flonase Allergy Relief 50 MCG/ACT 11/23/2020 12:00:00 AM EDT 1.0 {spray_in_each_nostril} acti ve Flonase Allergy Relief 50 MCG/ACT eCW1 ([facility]) Ergocalciferol 62163 UNT Oral Capsule [Drisdol] Drisdo l 1.25 MG (91666 UT) Drisdol 1.25 MG (83692 UT) 11/23/2020 12:00:00 AM EDT 1.0 {capsule} active Drisdol 1.25 MG (14189 UT) eCW1 ([facility]) 200 mg 11/18/2020 12:00:00 AM EDT capsule [...] 4 TIMES A DAY SOLD: 06/2019 [facility] pantoprazole 40 MG Delayed Release Oral Tablet PANTOPRAZOLE SODIUM 02/04/2020 12:00:00 AM EST tablet,delayed release (DR/EC) 180 T CARMELLA 1 TABLET BY MOUTH TWO TIMES A DAY TAKE 1 TABLET BY MOUTH TWO TIMES A DAY SOLD: 05/02/2020 [facility] pantoprazole 40 MG Delayed Release Oral Tablet [...] [facility] Part B [id number] Self Y [id number] [facility] [id number] 0 [id number] MEDICARE [id number] SP [id number] A HU[employer] CLAIMS (PFFS) [id number] 0 [id number] [employer] Commercial [id number] 7364.0 Self [id number] [employer] Commercial [id number] 7364.0 Self [id number] [employer] Commercial [id number] 7364.0 Self [id number] [employer] Commercial [id number] 7364.0 Self [id number] [employer] Commercial [id number] 7364.0 Self [id number] Medicare Part B [facility] [id number] 0 [id number] [facility] Option [id number] 0 [id number] Today's Options Medicare Commercial [id number] Self [id number] Today's Options Medicare Commercial [id number] Self [id number] [employer] Medicare Commercial [id number] Self [id number] Today's Options Medicare Commercial [id number] Self [id number] TODAYS OPTIONS [id number] SP [id number] 1990 Today's Options Medicare Commercial [id number] 3.3.227.99.8646.27290.0 Self [employer] Medigap Part B [id number] 2638.0 Self [id number] [employer] Med[employer]ap Part B [id number] 2638.0 Self [id number] [employer] OPTIONS [id number] [facility] [id number] 18 [id number] ANSI-Commercial [id number] Medicare [facility] Medicare Primary [id number] Self [id number] ANSI-Medicare Part B [id number] ANSI-Commercial [id number] ANSI-Commercial [id number] ANSI-Medicare Part B [id number] ANSI-Commercial [id number] ANSI-Medicare Part B [id number] [facility] [id number] 2638.0 Self [id number] Medicare [facility] Medicare Primary [id number] Self [id number] [facility] [id number] 2638.0 Self [id number] [place] Medicare Primary [id number] Self [id number] [employer] Med[employer]ap Part B [id number]646.3 2638.0 Self [id number] [place] Medicare Primary [id number]646.54268.0 Self [id number] [employer] Med[employer]ap Part B [id number]646.3 2638.0 Self [id number] [place] Medicare Primary [id number]49.0 Self [id number] [employer] Med[employer]ap Part B [id number]6.3 2638.0 Self [id number] Medicare [place] Medicare Primary [id number] Self [id number] TOD[employer] OPTIONS [id number] SP [id number] 1989 TODAYS OPTIONS [id number] SP [id number] 1989 [employer] Medigap Part B [id number] 38.0 Self Medicare [place] Medicare Primary [id number] Self TODAYS OPTIONS [id number] SP [id number] [employer] OPTIONS [id number] SP [id number] [facility] Options Medigap Part B [id number] Self Medicare [facility] Medicare Primary [id number]. [id number] Self AARP O [id number] S [id number] MEDICARE C [id number] S [id number] A MEDICARE [id number] SP [id number] HUMANA PPO [id number] SP [id number] HUMANA GOLD [id number] SP [id number] HUMANA PPO [id number] SP [id number] WELLCARE [id number] SP [id number] WELLCARE [id number] SP [id number] WELLCARE O [id number] S [id number] MEDICARE [id number] SP [id number] [facility] OPTIONS [id number] SP [id number] MEDICAID UNAVAILABLE UNAVAILA BLE ANSI-Medicare Part B [id number] ANSI-Commercial [id number] ANSI-Medicare Part B [id number] ANSI-Commercial [id number] ANSI-Commercial [id number] ANSI-Medicare Part B [id number] MEDICARE [id number] SP [id number] A Medicare [place] Medicare Primary [id number] Self [id number] ANSI-Commercial [id number] ANS-Medicare Part B [id number] ANS-Medicare Part B [id number] ANSI-Commercial [id number] ANSI-Medicare Part B [id number] ANSI-Commercial [id number] ANSI-Medicare Part B [id number] Problems, Conditions, and Diagnoses Code Display Name Description Problem Type Effective Dates Data Source(s) M81.0 [id number] Osteoporosis, unspec ified osteoporosis type, unspecified pathological fracture presence Problem 11/23/2020 12:00:00 AM EDT eC W1 ([facility]) M25.561 Pain in right knee Pain in right knee Diagnosis 12:00:00 AM EDT CureMD ([facility]) I16.0 [id number] Asymptomatic hypertensive urgency Problem 04/06/2020 12:00:00 AM EST eCW1 ([facility]) Surgeries/Procedures Procedure Description Date Indications Data Source(s) OFFICE OUTPATIENT VISIT 25 MINUTES 10/11/2020 12:00:00 AM EDT MEDENT ([facility], ) OFFICE OUTPATIENT VISIT 15 MINUTES 10/11/2020 12:00:00 AM EDT MEDENT ([facility], ) OFFICE OUTPATIENT VISIT 15 MINUTES 06/13/2020 12:00:00 AM EDT MEDENT ([facility], ) ECG ROUTINE ECG W/LEAST 12 LDS W/I&R 04/06/2020 12:00: 00 AM EST eCW1 ([facility]) Results ID Date Data Source [id number] 03/24/2020 09:05:00 PM EST [facility] Name Value Range Interpretation Code Description Data Gina rce(s) Supporting Document(s) SARS coronavirus 2 RNA [Presence] in Res piratory specimen by ALLAN with probe detection NEGATIVE [facility] This lab was ordered by [facility] a nd reported by [facility]. Procedure Social History Code Duration Value Status Description Data Source(s ) Smoking 11/23/2020 12:00:00 AM EDT Never Smoker completed Never S moker eCW1 ([facility]) Smoking 10/11/2020 12:00:00 AM EDT Patient has never smoked co mpleted Patient has never smoked MEDENT ([facility], ) Smoking 07/19/2020 12:00:00 AM EDT Never Smoker completed Never S moker eCW1 ([facility]) Smoking 07/19/2020 12:00:00 AM EDT Never Smoker completed Never S moker eCW1 ([facility]) Smoking 07/19/2020 12:00:00 AM EDT Never Smoker completed Never S moker eCW1 ([facility]) Smoking 07/19/2020 12:00:00 AM EDT Never Smoker completed Never S moker eCW1 ([facility]) Smoking 04/06/2020 12:00:00 AM EST Never Smoker completed Never S moker eCW1 ([facility]) Vital Signs ID Date Data Source UNK [...] pressure 129 mm[Hg] 129 mm[Hg] e CW1 ([facility]) Body weight 220.6 [lb_av] 220.6 [lb_av] eCW1 [facility] Body height 61 [in_i] 61 [in_i] eCW1 ([facility]) Body mass index (BMI) [Ratio] 41.68 kg/m2 41.68 kg/m2 W1 ([facility]) Heart rate 75 /min 75 /min eCW1 ([facility]) Respiratory rate 18 /min 18 /min eCW1 ([facility]) Diastolic blood pressure 77 mm[Hg] 77 mm[Hg] eCW1 ([facility]) Body temperature 97.5 [degF] 97.5 [degF] eCW1 ( [facility]) Body weight 200.00 [lb_av] 200.00 [lb_av] MEDEN T ([facility]) Respiratory rate 12 /min 12 /min MEDENT ( [facility]) Body height 62.5 [in_i] 62.5 [in_i] MEDENT ([facility]) 5'2.50" Body mass index (BMI) [Ratio] 36.0 kg/m2 36.0 k g/m2 [facility] ([facility]) [place] body weight 110 [lb_av] 110 [lb_av] MEDEN T ([facility]) Systolic blood pressure 118 mm[Hg] 118 mm[Hg] M EDENT ([facility]) Diastolic blood pressure 76 mm[Hg] 76 mm[Hg] [facility] ([facility]) Heart rate 87 /min 87 /min [facility] ([facility]) Oxygen saturation in Arterial blood by Pulse oximetry 95 % 95 % [facility] ([facility]) Body height 61 [in_i] 61 [in_i] [facility] ([facility]) 5'1" Body weight 220.00 [lb_av] 220.00 [lb_av] [facility] Body mass index (BMI) [Ratio] 41.6 kg/m2 41.6 k g/m2 [facility] ([facility]) [place] body weight 105 [lb_av] 105 [lb_av] [facility] Body weight 99.792 kg 99.792 kg [facility] ([facility]) Body surface area Derived from formula 1.97 m2 1.97 m2 [facility] ([facility]) Body weight 203 [lb_av] 203 [lb_av] eCW1 ([facility]) Diastolic blood pressure 77 mm[Hg] 77 mm[Hg] eCW1 ([facility]) Body height 61 [in_i] 61 [in_i] eCW1 ([facility]) Body mass index (BMI) [Ratio] 38.35 kg/m2 38.35 kg/m2 W1 ([facility]) Heart rate 71 /min 71 /min eCW1 ([facility]) Respiratory rate 18 /min 18 /min eCW1 ([facility]) Body temperature 97.9 [degF] 97.9 [degF] eCW1 ( [facility]) Systolic blood pressure 122 mm[Hg] 122 mm[Hg] e CW1 ([facility]) Body mass index (BMI) [Ratio] 36.0 kg/m2 36.0 k g/m2 MEDENT ([facility], ) Body height 62.5 [in_i] 62.5 [in_i] MEDENT ([facility], ) 5'2.50" Body weight 200.00 [lb_av] 200.00 [lb_av] MEDEN T ([facility], ) [place] body weight 110 [lb_av] 110 [lb_av] MEDEN T ([facility], ) Respiratory rate 12 /min 12 /min MEDENT ( [facility], ) Body weight 216 [lb_av] 216 [lb_av] eCW1 ([facility]) Body height 61 [in_i] 61 [in_i] eCW1 ([facility]) Body mass index (BMI) [Ratio] 40.81 kg/m2 40.81 kg/m2 eCW1 ([facility]) Heart rate 74 /min 74 /min eCW1 ([facility]) Respiratory rate 20 /min 20 /min eCW1 ([facility]) Body temperature 98.6 [degF] 98.6 [degF] eCW1 ( [facility]) Systolic blood pressure 122 mm[Hg] 122 mm[Hg] e CW1 ([facility]) Diastolic blood pressure 75 mm[Hg] 75 mm[Hg] eCW1 ([facility]) Respiratory rate 12 /min 12 /min MEDENT ( [facility], ) Body height 62.5 [in_i] 62.5 [in_i] MEDENT ([facility], ) 5'2.50" Body weight 200.00 [lb_av] 200.00 [lb_av] MEDEN T ([facility], ) Body mass index (BMI) [Ratio] 36.0 kg/m2 36.0 k g/m2 MEDENT ([facility], ) [place] body weight 110 [lb_av] 110 [lb_av] MEDEN T ([facility], ) Patient Treatment Plan of Care Planned Activity Planned Date Details Description Data Source (s) Cholecalciferol 97166 UNT Oral Capsule 12/08/2020 12:00:00 AM EDT [facility] ([facility]) Calcium 600 MG 11/23/2020 12:00:00 AM EDT eCW1 ([facility]) Ergocalciferol 21665 UNT Oral Capsule [Drisdol] 11/23/2020 12:00:00 AM EDT eCW1 ([facility]) Flonase Allergy Relief 50 MCG/ACT 11/23/2020 12:00:00 AM EDT eCW1 ([facility])
[2021-01-23 15:40] LABS: RSV AMPLIFICATION NEGATIVE (NEGATIVE)
[2021-01-23] MEDS ORDERED: ALBUTEROL SULFATE 2.5 MG/0.5 ML INH NEB SOLN NEB PRN (16:20)
[2021-01-23] MEDS ORDERED: VANCOMYCIN HCL 1,000 MG, VIAL MATE ADAPTER 1 EACH in NS 250 ML IV SCH (16:20)
[2021-01-23] MEDS ORDERED: AMOX500C PO (16:33)
[2021-01-23] MEDS ORDERED: HOME MED LIST COMPLETE! XX SCH (16:35)
[2021-01-23] MEDS ORDERED: ACETAMINOPHEN TAB 650MG DOSE (2X325MG) PO SCH (17:00)
--- NOTE | 2021-01-23 17:23 | HPEPDOC ---
General Date of Admission Jan 23, 2021 at 14:51 Date of Service: Jan 23, 2021 Chief Complaint The patient is a 75-year-old female admitted with a reason for visit of Cellulitis Of Face,Dental Abscess. Source: Patient, Family, RN/MD History of Present Illness 75-year-old female with dementia, morbid obesity, AILYN, hypertension, hyperlipidemia presented to the emergency room through dental offices for right jaw and facial swelling and redness. Patient is a poor historian due to dementia all history from daughter who is at bedside and from ED provider. Patient has been having right sided toothache for about 4 days and yesterday family noticed swelling of the right jaw area with some redness. This was discussed with patient's dentist and patient was prescribed amoxicillin patient took 4 doses of amoxicillin yesterday and this morning went to see the dentist. By this morning her swelling of the right side of the face has increased and also the redness had increased. The dentist immediately referred patient to the ED. patient had complained of throbbing pain at the right lower jaw and right side of the neck rated the pain as 10/10 constantly present causing difficulty in swallowing and difficulty in opening the mouth and speaking. This was associated with redness of the right side of the face extending from the jaw to just below the eyes. There was also redness on the left lower jaw which started in the emergency room. CT scan Of the neck showed a right facial cellulitis odontogenic and related abscess of the right mandibular molar #31 this findings was discussed with the oral surgeon on-call Dr. Cates who will be consulting on the patient. Patient was admitted for right facial cellulitis. Home Medications Scheduled Amlodipine Besylate (Amlodipine Besylate) 5 Mg Tablet, 5 MG PO DAILY, (Reported) Amoxicillin (Amoxicillin) 500 Mg Capsule, 500 MG PO TID, (Reported) Atorvastatin Calcium (Atorvastatin Calcium) 20 Mg Tab, 20 MG PO QHS, (Reported) Calcium Carbonate (Calcium Carbonate) 600 Mg Tablet, 600 MG PO DAILY, (Reported) Celecoxib (Celecoxib) 200 Mg Capsule, 200 MG PO DAILY, (Reported) Donepezil HCl (Donepezil HCl) 10 Mg Tablet, 10 MG PO DAILY, (Reported) Ergocalciferol (Vitamin D2) (Vitamin D2) 50,000 Units Cap, 50,000 UNITS PO 1XWK, (Reported) @ SUNDAYS Escitalopram Oxalate (Lexapro) 5 Mg Tablet, 5 MG PO QHS, (Reported) Famotidine (Famotidine) 40 Mg Tablet, 40 MG PO BID, (Reported) Fluticasone Propion/Salmeterol (Advair Hfa 115-21 Mcg Inhaler) 12 Gm Hfa.aer.ad, 2 PUFF INH BID, (Reported) Irbesartan (Irbesartan) 150 Mg Tab, 150 MG PO DAILY, (Reported) Pantoprazole Sodium (Pantoprazole Sodium) 40 Mg Tablet.dr, 40 MG PO BID, (Reported) Pregabalin (Pregabalin) 25 Mg Capsule, 25 MG PO TID, (Reported) Scheduled PRN Acetaminophen (Tylenol Extra Strength) 500 Mg Tablet, 1,000 MG PO TID PRN for PAIN, (Reported) Albuterol Sulfate (Ventolin Hfa) 108 Mcg/Act Aer, 2 SPRAY INH QID PRN for SOB/WHEEZING, (Reported) Fluticasone Propionate (Flonase Allergy Relief) 9.9 Ml [place].susp, 2 SPRAY NARES DAILY PRN for ALLERGIES, (Reported) Ibuprofen (Ibuprofen) 600 Mg Tablet, 600 MG PO TID PRN for PAIN LEVEL 3-5, (Reported) with food Ondansetron (Ondansetron Odt) 4 Mg Tab.rapdis, 4 MG PO Q8H PRN for NAUSEA OR VOMITING, (Reported) Allergies Coded Allergies: codeine (Verified Adverse Reaction, Unknown, NAUSEA, 12/09/18) Past Medical History Medical History Dementia Morbid obesity AILYN on CPAP Hyperlipidemia Hypertension Lee's esophagus Allergies Asthma Right hip bursitis Surgical History Right hip replacement Left carpal tunnel release Bilateral bunionectomy Dilatation and curettage Laparoscopy Family History Father at age 65 years heart disease COPD hypertension Mother had heart disease COPD hypertension stroke Brother with heart problems 1 son at 80 years old from hepatitis Social History * Smoker: non-smoker Alcohol: rarely Drugs: denies A-FIB/CHADSVASC A-FIB History Current/History of A-Fib/PAF?: No Review of Systems Constitutional: Denies: Chills, Fever, Night Sweats Eyes: Denies: Pain, Vision change ENT: Reports: Dysphagia, Sore Throat, Other Symptoms (Right jaw pain, right- sided neck pain and right-sided facial pain with swelling and redness) Skin: Denies: Rash, Lesions, Breakdown Pulmonary: Reports: Cough (Chronic cough); Denies: Dyspnea Cardiovascular: Denies: Chest Pain, Palpitations, Orthopnea, Paroxysmal Noc. Dyspnea, Lt Headedness Gastrointestinal: Denies: Nausea, Vomiting, Abdominal Pain, Diarrhea Genitourinary: Denies: Dysuria, Frequency, Incontinence, Retention Hematologic: Denies: Bruising, Bleeding Excessively Musculoskeletal: Denies: Neck Pain, Back Pain, Joint Pain, Muscle Pain, Spasms Neurological: Denies: Weakness, Numbness, Change in speech, Confusion Physical Examination General Exam: Positive: Alert, Cooperative, No Acute Distress Eye Exam: Positive: PERRLA, Conjunctiva & lids normal, EOMI; Negative: Sclera icteric ENT Exam: Positive: Atraumatic, Mucous membr. moist/pink, Pharynx Normal Neck Exam: Positive: Other (Right-sided neck swollen) Chest Exam: Positive: Normal air movement, Wheezing Heart Exam: Positive: Rate Normal, Regular Rhythm, Normal S1, Normal S2, Murmurs (Systolic murmur present); Negative: Rubs Abdomen Exam: Positive: Normal bowel sounds, Soft; Negative: Tenderness, Hepatospenomegaly Extremity Exam: Negative: Clubbing, Cyanosis, Edema Skin Exam: Positive: Nl turgor and temperature; Negative: Breakdown, Lesion Psych Exam: Positive: Other (Oriented to place and person) Vital Signs Vital Signs Date Time Temp Pulse Resp B/P (MAP) Pulse Ox O2 Delivery O2 Flow Rate FiO2 01/23/21 14:21 98.8 65 20 176/79 (111) 96 Room Air Laboratory Data Labs 24H Laboratory Tests 2 01/23/21 12:29: Immature Granulocyte % (Auto) 0.4, Neutrophils (%) (Auto) 80.9H, Lymphocytes (%) (Auto) 7.4L, Monocytes (%) (Auto) 8.4H, Eosinophils (%) (Auto) 2.3, Basophils (%) (Auto) 0.6, Neutrophils # (Auto) 11.4H, Lymphocytes # (Auto) 1.1L, Monocytes # (Auto) 1.2H, Eosinophils # (Auto) 0.3, Basophils # (Auto) 0.1, Nucleated Red Blood Cells % (auto) 0.0, Erythrocyte Sedimentation Rate 65H, Lactic Acid Level 1.1, Total Bilirubin 0.5, Direct Bilirubin 0.1, Aspartate Amino Transf (AST/SGOT) 14, Alanine Aminotransferase (ALT/SGPT) 19, Alkaline Phosphatase 90, C-Reactive Protein, Quantitative 3.42H, Total Protein 8.0, Albumin 3.8, Albumin/Globulin Ratio 0.9L 01/23/21 13:07: POC Glucose (Misc Panel) 102, POC Sodium (Misc Panel) 138, POC Potassium (Misc Panel) 4.2, POC Chloride (Misc Panel) 103, POC Total CO2 (Misc Panel) 27.0, POC Blood Urea Nitrogen (Misc Panel 11, POC Ionized Calcium (Misc Panel) 4.6, POC Creatinine (Misc Panel) 0.7, POC Hematocrit (Misc Panel) 36.0L 01/23/21 14:46: Coronavirus (COVID-19)(PCR) NEGATIVE, Influenza Type A (RT-PCR) NEGATIVE, Influenza Type B (RT-PCR) NEGATIVE, Respiratory Syncytial Virus (PCR) NEGATIVE CBC/BMP Laboratory Tests 01/23/21 12:29 Microbiology Microbiology 01/23/21 Blood Culture, Received Pending 01/23/21 Blood Culture, Received Pending Assessment/Plan 75-year-old female with dementia, morbid obesity, AILYN, hypertension, hyperlipidemia presented to the emergency room through dental offices for right jaw and facial swelling and redness. Patient is a poor historian due to dementia all history from daughter who is at bedside and from ED provider. Patient has been having right sided toothache for about 4 days and yesterday family noticed swelling of the right jaw area with some redness. This was discussed with patient's dentist and patient was prescribed amoxicillin patient took 4 doses of amoxicillin yesterday and this morning went to see the dentist. By this morning her swelling of the right side of the face has increased and also the redness had increased. The dentist immediately referred patient to the ED. patient had complained of throbbing pain at the right lower jaw and right side of the neck rated the pain as 10/10 constantly present causing difficulty in swallowing and difficulty in opening the mouth and speaking. This was associated with redness of the right side of the face extending from the jaw to just below the eyes. There was also redness on the left lower jaw which started in the emergency room. CT scan Of the neck showed a right facial cellulitis odontogenic and related abscess of the right mandibular molar #31 this findings was discussed with the oral surgeon on-call Dr. Cates who will be consulting on the patient. Patient was admitted for right facial cellulitis. Right facial cellulitis Related to dental abscess Will start the patient on Unasyn and vancomycin If MRSA PCR is negative will DC vancomycin Cultures have been sent Oral surgeon Dr. Cates is consulted pain control with ibuprofen, Tylenol and Toradol Hypertension Continue amlodipine and irbesartan Hyperlipidemia Continue atorvastatin Lee's esophagus Continue PPI and famotidine Dementia Continue donepezil and Lexapro Chronic right hip pain from bursitis Continue pregabalin Plan / VTE VTE Prophylaxis Ordered?: Yes Debbi Wick MD Jan 23, 2021 17:23
[2021-01-23] MEDS ORDERED: VANCOMYCIN HCL 1,000 MG, VIAL MATE ADAPTER 1 EACH in NS 250 ML IV ONE (20:00)
[2021-01-23] MEDS ORDERED: ATORVASTATIN 20 MG TAB PO SCH (21:00)
[2021-01-23] MEDS ORDERED: ESCITALOPRAM OXALATE 5MG TABLET (LEXAPRO) PO SCH (21:00)
[2021-01-23] MEDS: PREGABALIN 25 MG CAP (LYRICA) PO SCH (21:00)
[2021-01-23] MEDS: VANCOMYCIN HCL 1,000 MG, VIAL MATE ADAPTER 1 EACH in NS 250 ML IV ONE (21:00)
[2021-01-23] MEDS: ADVAIR HFA 115/21MCG INHALER INH SCH (21:27)
[2021-01-23] MEDS: KETOROLAC 30 MG/ML 1ML VIAL IV PRN (21:36)
[2021-01-23 23:05] VITALS: BP 155/76
[2021-01-24] MEDS: VANCOMYCIN HCL 1,000 MG, VIAL MATE ADAPTER 1 EACH in NS 250 ML IV ONE (00:18)
[2021-01-24] MEDS: FAMOTIDINE 20 MG TAB PO SCH ×2 (00:19→08:29)
[2021-01-24] MEDS: ACETAMINOPHEN TAB 650MG DOSE (2X325MG) PO SCH ×4 (00:19→17:22)
[2021-01-24] MEDS: IBUPROFEN 800 MG TAB PO SCH ×2 (00:20→08:30)
[2021-01-24] MEDS: PANTOPRAZOLE 40MG TAB (PROTONIX) PO SCH ×2 (00:20→08:30)
[2021-01-24 06:00] VITALS: BP 153/75
[2021-01-24 06:37] LABS: BASO # 0.1 10^3/uL (0.0-0.2); BASO % 0.5 % (0.0-1.0); EOS # 0.3 10^3/uL (0.0-0.5); EOS % 2.7 % (0.0-3.0); HEMATOCRIT 33.3 % (36.0-47.0); HEMOGLOBIN 10.7 g/dl (12.0-15.5); LYMPH # 0.9 10^3/uL (1.5-5.0); LYMPH % 9.4 % (24.0-44.0); MEAN CORPUSCULAR HEMOGLOBIN 29.7 pg (27.0-33.0); MEAN CORPUSCULAR HGB CONC 32.1 g/dl (32.0-36.5); MEAN CORPUSCULAR VOLUME 92.5 fl (80.0-96.0); MONO # 0.9 10^3/uL (0.0-0.8); MONO % 9.2 % (2.0-8.0); NEUTROPHILS # 7.7 10^3/uL (1.5-8.5); NEUTROPHILS % 77.7 % (36.0-66.0); PLATELET COUNT, AUTOMATED 277 10^3/uL (150-450); WHITE BLOOD COUNT 9.9 10^3/uL (4.0-10.0)
[2021-01-24 07:04] LABS: BLOOD UREA NITROGEN 9 MG/DL (7-18); CALCIUM LEVEL 8.8 MG/DL (8.8-10.2); CARBON DIOXIDE LEVEL 29 MEQ/L (21-32); CHLORIDE LEVEL 106 MEQ/L (98-107); CREATININE FOR GFR 0.86 MG/DL (0.55-1.30); GLOMERULAR FILTRATION RATE > 60.0 (>39); GLUCOSE, FASTING 108 MG/DL (70-100); POTASSIUM SERUM 4.1 MEQ/L (3.5-5.1); SODIUM LEVEL 140 MEQ/L (136-145)
[2021-01-24] MEDS: ADVAIR HFA 115/21MCG INHALER INH SCH (07:37)
[2021-01-24] MEDS: PREGABALIN 25 MG CAP (LYRICA) PO SCH ×2 (08:30→17:21)
[2021-01-24 08:31] VITALS: BP 153/75
[2021-01-24] MEDS ORDERED: DONEPEZIL 5 MG TAB PO SCH (09:00)
[2021-01-24] MEDS ORDERED: IRBESARTAN 150MG TAB PO SCH (09:00)
[2021-01-24] MEDS ORDERED: amLODIPine 5 MG TAB PO SCH (09:00)
[2021-01-24] MEDS ORDERED: ENOXAPARIN 40MG/0.4ML SYRINGE (J1650 PER 10MG) SC SCH (09:00)
[2021-01-24 14:00] VITALS: BP 138/74
[2021-01-24] MEDS ORDERED: VANCOMYCIN HCL 750 MG, VIAL MATE ADAPTER 1 EACH in NS 250 ML IV SCH (14:00)
[2021-01-24] MEDS ORDERED: VANCOMYCIN HCL 500 MG in D5W MINI-BAG PLUS 100 ML IV SCH (15:00)
[2021-01-24] MEDS: KETOROLAC 30 MG/ML 1ML VIAL IV PRN (15:14)
[2021-01-24] MEDS ORDERED: AUGM875T28 PO (16:02)
[2021-01-24] MEDS ORDERED: IBUP80TA PO (16:02)
[2021-01-24] MEDS ORDERED: AUGMENTIN 875 MG TAB PO ONE (18:45)
--- NOTE | 2021-01-24 18:48 | DS.PDOC ---
Discharge Summary General Date of Admission Jan 23, 2021 at 14:51 Date of Discharge 01/24/2021 Attending Physician: LLOYD MCGOWAN DO Discharge Summary PROCEDURES PERFORMED DURING STAY: None. ADMITTING DIAGNOSES: 1. Right facial cellulitis. 2. Upper tension 3. Hyperlipidemia 4. Lee esophagus 5. Dementia 6. Chronic right hip pain from bursitis DISCHARGE DIAGNOSES: 1. Right facial cellulitis. 2. Right apical dental abscess of tooth 31 3. Hypertension appropriate hyperlipidemia 5. Lee esophagus 6. Dementia 7. Chronic right hip pain from bursitis but COMPLICATIONS/CHIEF COMPLAINT: Cellulitis Of Face,Dental Abscess. HISTORY OF PRESENT ILLNESS: Patient is a 75-year-old female who presented to the emergency department through dental offices for right jaw and facial swelling with redness. Patient is a poor historian due to dementia and all the history is taken from the patient's daughter who was at bedside. Patient has been having right-sided tooth ache for about 4 days and yesterday family noticed swelling of the right jaw with some redness. This was discussed with the patient's dentist who prescribed amoxicillin patient took 4 doses amoxicillin y esterday in the morning went to see her dentist. By the morning the swelling in the right face and increase in the redness is also increased. Dentist immediately referred the patient to the emergency department. Patient had complained of throbbing pain in the right lower jaw and right-sided neck pain that radiated 10/10 consistent present causing difficulty in swallowing and difficulty opening the mouth and speaking. This associate with redness of the right side of the face extending from the jaw just below the eyes. Also redness in the left lower jaw which started in the emergency room. CT scan of the neck showed right facial cellulitis and odontogenic related abscess in the right man dibular molar 31. Findings were discussed with oral surgeon on-call who consulted on the patient. Patient was admitted for right facial cellulitis. HOSPITAL COURSE: Patient was started on IV vancomycin. Patient did well overnight and was feeling much better throughout the day. I did speak with oral surgery who stated that it would be better for the patient if the patient had the tooth extracted in the office rather than under general anesthesia in the hospital. Patient was feeling better and the decision was made to discharge the patient after speaking with the patient and her daughter later on in the day. Patient will be sent home with amoxicillin/clavulanic acid and has an appointme nt at 8 AM tomorrow morning with Dr. Cates of oral surgery to extract the tooth in the office. I did speak with PFS to ensure that the patient would not incur a large bill because the patient does not have dental insurance. Patient was assured that the procedure will be covered and the patient was discharged home. DISCHARGE MEDICATIONS: Please see below. ALLERGIES: Please see below. PHYSICAL EXAMINATION ON DISCHARGE: VITAL SIGNS: Please see below. General: Alert and oriented via vaginal sodium level naloxone. Patient not appear to be in any acute distress. HEENT: Normocephalic, atraumatic, moist mucous membranes, mild facial redness and swelling over the right side of the face. Neck: No lymphadenopathy or thyromegaly Cardiac: Regular rate and rhythm, no murmurs, normal S1, normal S2 Pulm: Clear to auscultation bilaterally. No wheezes, rhonchi, rales Abd: Nondistended, nontender to palpation, normal bowel sounds Ext: No edema bilateral lower extremities LABORATORY DATA: Please see below. IMAGING: CT of the neck with contrast performed on 01/23/2021 is reported to show right facial cellulitis, odontogenic and related to abscess of right mandibular molar 31. There is a 10 mm hypodensity within the left posterior thyroid lobe. Patient is aged 35 years and older with an incidental thyroid nodule equal to or greater than 1.[address], MRI or extrathyroidal ultrasound, further evaluation with dedicated thyroid ultrasound is recommended for patient with normal life expectancy and without comorbidities. For smaller nodules without suspicious features, no further evaluation or follow-up is recommended. PROGNOSIS: Good ACTIVITY: As tolerated. DIET: Regular DISCHARGE PLAN: Discharge home DISPOSITION: 01-Home, self-care DISCHARGE INSTRUCTIONS: 1. Follow-up with primary care provider within 5 to 7 days of discharge. 2. Follow-up with Dr. Cates of oral surgery tomorrow morning at 8 AM in his office 3. Continue taking Augmentin as prescribed 4. Return to the emergency department symptoms worsen ITEMS TO FOLLOWUP ON ON OUTPATIENT: 1. Continue to follow abscess to resolution. DISCHARGE CONDITION: Stable. TIME SPENT ON DISCHARGE: 35 minutes. Vital Signs/I&Os Vital Signs Date Time Temp Pulse Resp B/P (MAP) Pulse Ox O2 Delivery O2 Flow Rate FiO2 01/24/21 14:00 98.1 81 18 138/74 (95) 96 Room Air 01/24/21 06:00 1.0 I&O- Last 24 Hours up to 6 AM 01/24/21 06:00 Intake Total 160 ml Balance 160 ml Laboratory Data Labs 24H Laboratory Tests 2 01/24/21 06:18: Immature Granulocyte % (Auto) 0.5, Neutrophils (%) (Auto) 77.7H, Lymphocytes (%) (Auto) 9.4L, Monocytes (%) (Auto) 9.2H, Eosinophils (%) (Auto) 2.7, Basophils (%) (Auto) 0.5, Neutrophils # (Auto) 7.7, Lymphocytes # (Auto) 0.9L, Monocytes # (Auto) 0.9H, Eosinophils # (Auto) 0.3, Basophils # (Auto) 0.1, Nucleated Red Blood Cells % (auto) 0.0, Anion Gap 5L, Glomerular Filtration Rate > 60.0, Calcium Level 8.8 CBC/BMP Laboratory Tests 01/24/21 06:18 Microbiology Microbiology 01/23/21 Blood Culture - Preliminary, Resulted No growth after 24 hours . All specim... 01/23/21 Blood Culture - Preliminary, Resulted No growth after 24 hours . All specim... Discharge Medications Scheduled Amlodipine Besylate (Amlodipine Besylate) 5 Mg Tablet, 5 MG PO DAILY, (Reported) Amoxicillin/Potassium Clav (Augmentin 875-125 Tablet) 1 Each Tablet, 1 TAB PO BID Atorvastatin Calcium (Atorvastatin Calcium) 20 Mg Tab, 20 MG PO QHS, (Reported) Calcium Carbonate (Calcium Carbonate) 600 Mg Tablet, 600 MG PO DAILY, (Reported) Donepezil HCl (Donepezil HCl) 10 Mg Tablet, 10 MG PO DAILY, (Reported) Ergocalciferol (Vitamin D2) (Vitamin D2) 50,000 Units Cap, 50,000 UNITS PO 1XWK, (Reported) @ SUNDAYS Escitalopram Oxalate (Lexapro) 5 Mg Tablet, 5 MG PO QHS, (Reported) Famotidine (Famotidine) 40 Mg Tablet, 40 MG PO BID, (Reported) Fluticasone Propion/Salmeterol (Advair Hfa 115-21 Mcg Inhaler) 12 Gm Hfa.aer.ad, 2 PUFF INH BID, (Reported) Ibuprofen (Ibuprofen) 800 Mg Tablet, 800 MG PO BID Pantoprazole Sodium (Pantoprazole Sodium) 40 Mg Tablet.dr, 40 MG PO BID, (Reported) Pregabalin (Pregabalin) 25 Mg Capsule, 25 MG PO TID, (Reported) Scheduled PRN Acetaminophen (Tylenol Extra Strength) 500 Mg Tablet, 1,000 MG PO TID PRN for PAIN, (Reported) Albuterol Sulfate (Ventolin Hfa) 108 Mcg/Act Aer, 2 SPRAY INH QID PRN for SOB/WHEEZING, (Reported) Fluticasone Propionate (Flonase Allergy Relief) 9.9 Ml [place].susp, 2 SPRAY NARES DAILY PRN for ALLERGIES, (Reported) Ondansetron (Ondansetron Odt) 4 Mg Tab.rapdis, 4 MG PO Q8H PRN for NAUSEA OR VOMITING, (Reported) Allergies Coded Allergies: codeine (Verified Adverse Reaction, Unknown, NAUSEA, 12/09/18) LLOYD MCGOWAN DO Jan 24, 2021 18:48
== END 2021-01-24 19:46 | disposition home or self-care (01) | DRG 158 ==
LOC: M ED 08:49 → M ED INP 14:51 → M MS5PR 23:07
PROVIDERS: ADMIT Internal Medicine Nephrology; ATTEND Family Medicine
DX: K04.7 Periapical abscess without sinus (principal); L03.211 Cellulitis of face; I10 Essential (primary) hypertension; E78.5 Hyperlipidemia, unspecified; F03.90 Unspecified dementia, unspecified severity, without behavioral disturbance, psychotic disturbance, mood disturbance, and anxiety; M70.71 Other bursitis of hip, right hip; E66.01 Morbid (severe) obesity due to excess calories; G47.33 Obstructive sleep apnea (adult) (pediatric); Z79.899 Other long term (current) drug therapy; Z88.5 Allergy status to narcotic agent; K22.70 Barrett's esophagus without dysplasia; J45.909 Unspecified asthma, uncomplicated; Z96.641 Presence of right artificial hip joint; Z20.822 Contact with and (suspected) exposure to COVID-19; Z68.42 Body mass index [BMI] 45.0-49.9, adult

== ENCOUNTER → 2021-08-21 | Outpatient (CLI) | payer MEDICARE ==
[~2021-08-21] MED LIST changes: +ALBU8.5H INH; +AMOX500C PO; +B-12100010 PO; +CALC600T86 PO; +CALCTAB89 PO; +DONE-1 PO; +DONE5TAB82 PO; -DONETAB6 PO; +ERGO500029 PO; +ETOD-173 PO; +FAMO20TA PO; +FAMO40TA3 PO; +IBUP80TA PO; +ONDA4TAB6 PO; +PREG25CA2 PO; +PREG50CA PO
== END ==
LOC: M LABSMTC 10:36
PROVIDERS: ATTEND Anesthesiology
DX: Z01.812 Encounter for preprocedural laboratory examination (principal); Z20.822 Contact with and (suspected) exposure to COVID-19

== ENCOUNTER 2021-08-25 08:57 | Day surgery (SDC) | payer MEDICARE ==
[~2021-08-25] VITALS: Ht 149.9 cm; Wt 94.3 kg
[~2021-08-25 08:57] MED LIST changes: +CEFUROXIME 1MG/0.1ML INTRACAMERAL INJ As Ordered ONE; +LIDOCAINE 1% SDV 5ML VIAL As Ordered ONE; +MIDAZOLAM INJ 2MG/2ML VIAL (J2250 PER 1MG) As Ordered ONE; +OFLOXACIN 0.3 % (OCUFLOX) OPTH SOL 5ML OS SCH; +PHENYLEPHRINE 2.5% OPHTH SOL 2ML OS SCH; +PROPARACAINE 0.5% OPHTH SOL 15ML OS ONE; +TROPICAMIDE 1% OPHTH SOLN 2ML OS SCH; +TRYPAN BLUE 0.06 % 2.25 ML OPHTH SYR (VISIONBLUE) As Ordered ONE
[2021-08-25] MEDS ORDERED: BSS IRR 500ML/OMIDRIA 4ML IRR BAG (OR ONLY) As Ordered ONE (09:56)
[2021-08-25] MEDS ORDERED: PHENYLEPHRINE HCL 10 % OPHTH. SOL 5ML As Ordered ONE (10:41)
[2021-08-25] MEDS ORDERED: fentaNYL 100 MCG/2 ML INJECTION As Ordered ONE (11:09)
[2021-08-25] MEDS ORDERED: ONDANSETRON 4MG/2ML VIAL As Ordered ONE (11:14)
[2021-08-25] MEDS ORDERED: dexameTHASONE 4 MG/ML 1ML VIAL (J1100 PER 1MG) As Ordered ONE (11:15)
[2021-08-25] MEDS ORDERED: PHENYLEPHRINE HCL 10 % OPHTH. SOL 5ML OS ONE (11:15)
[2021-08-25] MEDS ORDERED: diphenhydrAMINE 50MG/ML VIAL (J1200) As Ordered ONE (11:20)
[2021-08-25 11:45] VITALS: BP 154/74
== END 2021-08-25 12:15 | disposition home or self-care (01) ==
LOC: M SDC 08:57
PROVIDERS: ATTEND Ophthalmology
DX: H25.12 Age-related nuclear cataract, left eye (principal); I10 Essential (primary) hypertension; E78.5 Hyperlipidemia, unspecified; G47.33 Obstructive sleep apnea (adult) (pediatric); G30.9 Alzheimer's disease, unspecified; F02.80 Dementia in other diseases classified elsewhere, unspecified severity, without behavioral disturbance, psychotic disturbance, mood disturbance, and anxiety; E55.9 Vitamin D deficiency, unspecified; K76.9 Liver disease, unspecified; Z88.5 Allergy status to narcotic agent; Z79.899 Other long term (current) drug therapy; Z79.51 Long term (current) use of inhaled steroids
CPT/HCPCS: 66984; J0697; J1097; J1100; J1200; J2250; J2405; J3010; V2632

== ENCOUNTER → 2021-08-30 | Outpatient (CLI) | payer MEDICARE ==
[~2021-08-30] MED LIST changes: -CEFUROXIME 1MG/0.1ML INTRACAMERAL INJ As Ordered ONE; -LIDOCAINE 1% SDV 5ML VIAL As Ordered ONE; -MIDAZOLAM INJ 2MG/2ML VIAL (J2250 PER 1MG) As Ordered ONE; -OFLOXACIN 0.3 % (OCUFLOX) OPTH SOL 5ML OS SCH; -PHENYLEPHRINE 2.5% OPHTH SOL 2ML OS SCH; -PROPARACAINE 0.5% OPHTH SOL 15ML OS ONE; -TROPICAMIDE 1% OPHTH SOLN 2ML OS SCH; -TRYPAN BLUE 0.06 % 2.25 ML OPHTH SYR (VISIONBLUE) As Ordered ONE
[2021-08-30 13:58] LABS: BASO # 0.1 10^3/uL (0.0-0.2); BASO % 0.5 % (0.0-1.0); EOS # 0.3 10^3/uL (0.0-0.5); EOS % 2.7 % (0.0-3.0); HEMATOCRIT 35.8 % (36.0-47.0); HEMOGLOBIN 11.3 g/dl (12.0-15.5); LYMPH # 1.5 10^3/uL (1.5-5.0); LYMPH % 13.5 % (24.0-44.0); MEAN CORPUSCULAR HEMOGLOBIN 29.2 pg (27.0-33.0); MEAN CORPUSCULAR HGB CONC 31.6 g/dl (32.0-36.5); MEAN CORPUSCULAR VOLUME 92.5 fl (80.0-96.0); MONO # 0.9 10^3/uL (0.0-0.8); MONO % 7.9 % (2.0-8.0); NEUTROPHILS # 8.5 10^3/uL (1.5-8.5); PLATELET COUNT, AUTOMATED 292 10^3/uL (150-450); RED BLOOD COUNT 3.87 10^6/uL (4.00-5.40); WHITE BLOOD COUNT 11.3 10^3/uL (4.0-10.0)
[2021-08-30 14:16] LABS: BLOOD UREA NITROGEN 11 MG/DL (7-18); C REACTIVE PROTEIN QUANTITATIV 2.23 MG/DL (0.00-0.30); CARBON DIOXIDE LEVEL 32 MEQ/L (21-32); CHLORIDE LEVEL 101 MEQ/L (98-107); CREATININE FOR GFR 0.89 MG/DL (0.55-1.30); GLOMERULAR FILTRATION RATE > 60.0 (>39); GLUCOSE, FASTING 85 MG/DL (70-100); POTASSIUM SERUM 4.3 MEQ/L (3.5-5.1); SODIUM LEVEL 136 MEQ/L (136-145)
[2021-08-30 14:26] LABS: ERYTHROCYTE SEDIMENTATION RATE 62 mm/hr (0-30)
== END ==
LOC: M PLAIMG 11:08
PROVIDERS: ATTEND Family Medicine
DX: M19.071 Primary osteoarthritis, right ankle and foot (principal); M79.674 Pain in right toe(s)

== ENCOUNTER 2021-11-17 18:41 | Emergency (ER) | payer MEDICARE ==
[~2021-11-17] VITALS: Ht 149.9 cm; Wt 94.5 kg
[2021-11-17 19:53] LABS: BASO # 0.1 10^3/uL (0.0-0.2); BASO % 0.5 % (0.0-1.0); EOS # 0.2 10^3/uL (0.0-0.5); EOS % 1.4 % (0.0-3.0); HEMATOCRIT 36.7 % (36.0-47.0); HEMOGLOBIN 12.1 g/dl (12.0-15.5); LYMPH # 1.2 10^3/uL (1.5-5.0); LYMPH % 8.6 % (24.0-44.0); MEAN CORPUSCULAR HEMOGLOBIN 29.8 pg (27.0-33.0); MEAN CORPUSCULAR VOLUME 90.4 fl (80.0-96.0); NEUTROPHILS # 11.3 10^3/uL (1.5-8.5); PLATELET COUNT, AUTOMATED 299 10^3/uL (150-450); RED BLOOD COUNT 4.06 10^6/uL (4.00-5.40); WHITE BLOOD COUNT 13.7 10^3/uL (4.0-10.0)
[2021-11-17 20:29] LABS: CK-MB VALUE MASS < 1.0 NG/ML (<3.6); CPK CREATINE PHOSPHOKINASE 38 U/L (26-192); MB/CK RELATIVE INDEX 2.63 (< OR =4)
[2021-11-17 20:37] LABS: ALBUMIN 3.7 GM/DL (3.2-5.2); ALT/SGPT 14 U/L (12-78); BILIRUBIN,DIRECT 0.2 MG/DL (0.0-0.2); BILIRUBIN,TOTAL 0.7 MG/DL (0.2-1.0); BLOOD UREA NITROGEN 14 MG/DL (7-18); CALCIUM LEVEL 9.8 MG/DL (8.8-10.2); CARBON DIOXIDE LEVEL 28 MEQ/L (21-32); CHLORIDE LEVEL 98 MEQ/L (98-107); CREATININE FOR GFR 0.86 MG/DL (0.55-1.30); GLOMERULAR FILTRATION RATE > 60.0 (>39); GLUCOSE, FASTING 124 MG/DL (70-100); NT-PRO BNP 79 PG/ML (<450); POTASSIUM SERUM 3.7 MEQ/L (3.5-5.1); SODIUM LEVEL 132 MEQ/L (136-145); TOTAL PROTEIN 8.3 GM/DL (6.4-8.2)
[2021-11-17 22:50] LABS: CK-MB VALUE MASS < 1.0 NG/ML (<3.6); CPK CREATINE PHOSPHOKINASE 36 U/L (26-192); MB/CK RELATIVE INDEX 2.78 (< OR =4)
[2021-11-17 23:30] VITALS: BP 147/71
[2021-11-17 23:37] VITALS: O2SAT 95
[2021-11-20] MEDS ORDERED: CELE1CAP9 PO (13:03)
== END 2021-11-18 00:05 | disposition home or self-care (01) ==
LOC: M ED 18:41
DX: R06.02 Shortness of breath (principal); R11.10 Vomiting, unspecified; I10 Essential (primary) hypertension; E78.5 Hyperlipidemia, unspecified; E56.9 Vitamin deficiency, unspecified; G47.33 Obstructive sleep apnea (adult) (pediatric); K22.70 Barrett's esophagus without dysplasia; E04.9 Nontoxic goiter, unspecified; G30.9 Alzheimer's disease, unspecified; Z88.5 Allergy status to narcotic agent; Z79.51 Long term (current) use of inhaled steroids; Z79.899 Other long term (current) drug therapy

== ENCOUNTER → 2021-11-27 | Outpatient (CLI) | payer MEDICARE | LOC: M LABSMTC 09:53 | PROVIDERS: ATTEND Anesthesiology | DX: Z01.812 Encounter for preprocedural laboratory examination (principal); Z20.822 Contact with and (suspected) exposure to COVID-19 ==

== ENCOUNTER 2021-12-01 09:53 | Day surgery (SDC) | payer MEDICARE ==
[~2021-12-01] VITALS: Ht 149.9 cm; Wt 93.0 kg
[~2021-12-01 09:53] MED LIST changes: +CEFUROXIME 1MG/0.1ML INTRACAMERAL INJ As Ordered ONE; +LIDOCAINE 1% SDV 5ML VIAL As Ordered ONE; +OFLOXACIN 0.3 % (OCUFLOX) OPTH SOL 5ML OD SCH; +PHENYLEPHRINE 2.5% OPHTH SOL 2ML OD SCH; +PROPARACAINE 0.5% OPHTH SOL 15ML OD ONE; +TROPICAMIDE 1% OPHTH SOLN 2ML OD SCH
[2021-12-01] MEDS ORDERED: BSS IRR 500ML/OMIDRIA 4ML IRR BAG (OR ONLY) ONE (09:54)
[2021-12-01] MEDS ORDERED: MIDAZOLAM INJ 2MG/2ML VIAL (J2250 PER 1MG) As Ordered ONE (12:26)
[2021-12-01 13:00] VITALS: BP 144/69
== END 2021-12-01 14:35 | disposition home or self-care (01) ==
LOC: M SDC 09:53
PROVIDERS: ATTEND Ophthalmology
DX: H25.11 Age-related nuclear cataract, right eye (principal); I10 Essential (primary) hypertension; E78.5 Hyperlipidemia, unspecified; F02.80 Dementia in other diseases classified elsewhere, unspecified severity, without behavioral disturbance, psychotic disturbance, mood disturbance, and anxiety; Z79.899 Other long term (current) drug therapy; Z79.1 Long term (current) use of non-steroidal anti-inflammatories (NSAID); Z88.5 Allergy status to narcotic agent
CPT/HCPCS: 66984; J0697; J1097; J2250; V2632

== ENCOUNTER → 2022-05-29 | Outpatient (CLI) | payer MEDICARE ==
[~2022-05-29] MED LIST changes: -CEFUROXIME 1MG/0.1ML INTRACAMERAL INJ As Ordered ONE; -LIDOCAINE 1% SDV 5ML VIAL As Ordered ONE; -OFLOXACIN 0.3 % (OCUFLOX) OPTH SOL 5ML OD SCH; -PHENYLEPHRINE 2.5% OPHTH SOL 2ML OD SCH; -PROPARACAINE 0.5% OPHTH SOL 15ML OD ONE; -TROPICAMIDE 1% OPHTH SOLN 2ML OD SCH
== END ==
LOC: M WUC 09:04
PROVIDERS: ATTEND Ophthalmology
DX: M17.11 Unilateral primary osteoarthritis, right knee (principal); M25.562 Pain in left knee

== ENCOUNTER → 2022-05-29 | Outpatient (CLI) | payer MEDICARE ==
[2022-05-29 13:16] LABS: ALBUMIN 3.7 G/DL (3.2-5.2); ALKALINE PHOSPHATASE 91 U/L (46-116); ALT/SGPT 12 U/L (7.0-40); AST/SGOT 16 U/L (<34); BILIRUBIN,TOTAL 0.5 MG/DL (0.3-1.2); BLOOD UREA NITROGEN 11 MG/DL (9-23); CALCIUM LEVEL 9.2 MG/DL (8.3-10.6); CARBON DIOXIDE LEVEL 30 MMOL/L (20-31); CHLORIDE LEVEL 99 MMOL/L (98-107); CHOLESTEROL LEVEL 170 MG/DL (<200); CHOLESTEROL RISK RATIO 4.29 (<5); CREATININE FOR GFR 0.82 MG/DL (0.55-1.30); GLOMERULAR FILTRATION RATE > 60.0 (>39); GLUCOSE, FASTING 102 MG/DL (74-106); HDL CHOLESTEROL 39.6 MG/DL (>40); LDL CHOLESTEROL 91.2 MG/DL (<100); NON-HDL-C 130.4 MG/DL; POTASSIUM SERUM 4.3 MMOL/L (3.5-5.1); SODIUM LEVEL 136 MMOL/L (136-145); TOTAL 25(OH) VITAMIN D 62.1 NG/ML (20.0-100.0); TOTAL PROTEIN 7.1 G/DL (5.7-8.2); TRIGLYCERIDES LEVEL 196 MG/DL (<150)
[2022-05-29 13:57] LABS: HEMOGLOBIN A1c 5.7 % (4.0-6.0)
== END ==
LOC: M WUC 09:00
PROVIDERS: ATTEND Family Medicine
DX: E55.9 Vitamin D deficiency, unspecified (principal); E66.9 Obesity, unspecified; E78.5 Hyperlipidemia, unspecified; M17.11 Unilateral primary osteoarthritis, right knee; M25.562 Pain in left knee; Z79.899 Other long term (current) drug therapy

== ENCOUNTER → 2022-08-08 | Outpatient (CLI) | payer MEDICARE ==
[~2022-08-08] MED LIST changes: +FLUT50SP17; -FLUTISP
== END ==
LOC: M PLALAB 09:37
PROVIDERS: ATTEND Family Medicine
DX: R05.9 Cough, unspecified (principal)

== ENCOUNTER → 2022-08-08 | Outpatient (CLI) | payer MEDICARE | LOC: M WHC 07:47 | PROVIDERS: ATTEND Family Medicine | DX: N64.4 Mastodynia (principal); R05.9 Cough, unspecified | CPT/HCPCS: 71046; 76642; 77066; G0279 ==

== ENCOUNTER → 2022-10-16 | Outpatient (CLI) | payer MEDICARE ==
[~2022-10-16] MED LIST changes: +ALBU1.25; +AMOX875T2; +DICL100G10; +DICL100G10 TOP; -DICL1GEL3; -DICL1GEL3 TOP; +DOXY100T27; +REGL5TAB2 PO
[2022-10-16 12:06] LABS: BASO # 0.1 10^3/uL (0.0-0.2); BASO % 0.8 % (0.0-1.0); EOS # 0.4 10^3/uL (0.0-0.5); EOS % 3.3 % (0.0-3.0); HEMATOCRIT 36.6 % (36.0-47.0); HEMOGLOBIN 11.7 g/dl (12.0-15.5); LYMPH # 1.3 10^3/uL (1.5-5.0); LYMPH % 11.4 % (24.0-44.0); MEAN CORPUSCULAR HEMOGLOBIN 29.8 pg (27.0-33.0); MEAN CORPUSCULAR VOLUME 93.4 fl (80.0-96.0); MONO % 8.9 % (2.0-8.0); NEUTROPHILS # 8.3 10^3/uL (1.5-8.5); NEUTROPHILS % 75.1 % (36.0-66.0); PLATELET COUNT, AUTOMATED 315 10^3/uL (150-450); RED BLOOD COUNT 3.92 10^6/uL (4.00-5.40); WHITE BLOOD COUNT 11.1 10^3/uL (4.0-10.0)
[2022-10-16 12:24] LABS: HEMOGLOBIN A1c 6.1 % (4.0-6.0)
[2022-10-16 12:30] LABS: CREATININE, URINE 33.8 MG/DL
[2022-10-16 12:31] LABS: MAU/CREAT RATIO 14.7 MCG/MG (0.0-30.0)
[2022-10-16 12:33] LABS: ALBUMIN 3.9 G/DL (3.2-5.2); ALKALINE PHOSPHATASE 92 U/L (46-116); ALT/SGPT 13 U/L (7.0-40); AST/SGOT 11 U/L (<34); BILIRUBIN,TOTAL 0.4 MG/DL (0.3-1.2); BLOOD UREA NITROGEN 15 MG/DL (9-23); CALCIUM LEVEL 9.4 MG/DL (8.3-10.6); CARBON DIOXIDE LEVEL 29 MMOL/L (20-31); CHLORIDE LEVEL 102 MMOL/L (98-107); CREATININE FOR GFR 0.79 MG/DL (0.55-1.30); GLOMERULAR FILTRATION RATE > 60.0 (>39); GLUCOSE, FASTING 104 MG/DL (74-106); POTASSIUM SERUM 4.4 MMOL/L (3.5-5.1); SODIUM LEVEL 138 MMOL/L (136-145); TOTAL PROTEIN 7.4 G/DL (5.7-8.2)
[2022-10-16 12:35] LABS: THYROID STIMULATING HORMONE 2.528 uIU/ML (0.55-4.78)
== END ==
LOC: M WUC 09:45
PROVIDERS: ATTEND Family Medicine
DX: F03.90 Unspecified dementia, unspecified severity, without behavioral disturbance, psychotic disturbance, mood disturbance, and anxiety (principal); J18.9 Pneumonia, unspecified organism; E66.9 Obesity, unspecified; Z79.899 Other long term (current) drug therapy

== ENCOUNTER 2022-10-24 11:18 | Emergency (ER) | payer MEDICARE ==
[~2022-10-24] VITALS: Ht 149.9 cm; Wt 87.7 kg
[~2022-10-24 11:18] MED LIST changes: -ALBU1.25; -AMOX875T2; -DOXY100T27; -REGL5TAB2 PO
[2022-10-24] MEDS ORDERED: NS 1,000 ML IV SCH (11:35)
[2022-10-24] MEDS ORDERED: ALBU1.25 INH (11:40)
[2022-10-24] MEDS ORDERED: AMOX875T2 (11:40)
[2022-10-24] MEDS ORDERED: DOXY100T27 (11:40)
[2022-10-24 12:11] LABS: BASO # 0.1 10^3/uL (0.0-0.2); BASO % 0.6 % (0.0-1.0); EOS # 0.2 10^3/uL (0.0-0.5); EOS % 1.1 % (0.0-3.0); HEMOGLOBIN 12.2 g/dl (12.0-15.5); LYMPH % 10.8 % (24.0-44.0); MEAN CORPUSCULAR HEMOGLOBIN 30.1 pg (27.0-33.0); MEAN CORPUSCULAR HGB CONC 32.1 g/dl (32.0-36.5); MEAN CORPUSCULAR VOLUME 93.8 fl (80.0-96.0); MONO # 1.3 10^3/uL (0.0-0.8); MONO % 6.8 % (2.0-8.0); NEUTROPHILS # 15.1 10^3/uL (1.5-8.5); NEUTROPHILS % 80.2 % (36.0-66.0); PLATELET COUNT, AUTOMATED 279 10^3/uL (150-450); RED BLOOD COUNT 4.05 10^6/uL (4.00-5.40); WHITE BLOOD COUNT 18.9 10^3/uL (4.0-10.0)
[2022-10-24] MEDS ORDERED: METOCLOPRAMIDE INJ 10MG/2ML VIAL IV ONE (12:40)
[2022-10-24 12:53] LABS: ALBUMIN 3.5 G/DL (3.2-5.2); ALKALINE PHOSPHATASE 90 U/L (46-116); ALT/SGPT 16 U/L (7.0-40); AST/SGOT 26 U/L (<34); BILIRUBIN,DIRECT 0.2 MG/DL (<0.4); BILIRUBIN,TOTAL 0.6 MG/DL (0.3-1.2); BLOOD UREA NITROGEN 13 MG/DL (9-23); CALCIUM LEVEL 8.6 MG/DL (8.3-10.6); CARBON DIOXIDE LEVEL 27 MMOL/L (20-31); CHLORIDE LEVEL 99 MMOL/L (98-107); CREATININE FOR GFR 0.64 MG/DL (0.55-1.30); GLOMERULAR FILTRATION RATE > 60.0 (>39); GLUCOSE, FASTING 155 MG/DL (74-106); LIPASE 29 U/L (12-53); POTASSIUM SERUM 4.3 MMOL/L (3.5-5.1); SODIUM LEVEL 137 MMOL/L (136-145); TOTAL PROTEIN 7.1 G/DL (5.7-8.2)
[2022-10-24] MEDS ORDERED: ISOVUE-370 76% 100ML VIAL As Ordered ONE (13:02)
[2022-10-24 13:31] LABS: MAGNESIUM LEVEL 1.8 MG/DL (1.8-2.4)
[2022-10-24] MEDS ORDERED: REGL5TAB2 PO (15:39)
[2022-10-24 16:20] VITALS: BP 137/71; TEMP 96.8; O2SAT 97
== END 2022-10-24 16:25 | disposition home or self-care (01) ==
LOC: M ED 11:18
DX: R11.2 Nausea with vomiting, unspecified (principal); I10 Essential (primary) hypertension; E78.5 Hyperlipidemia, unspecified; K22.70 Barrett's esophagus without dysplasia; E03.9 Hypothyroidism, unspecified; G47.33 Obstructive sleep apnea (adult) (pediatric); Z88.5 Allergy status to narcotic agent; Z79.899 Other long term (current) drug therapy; Z79.51 Long term (current) use of inhaled steroids
CPT/HCPCS: 71260; 74177; 80048; 80076; 83690; 83735; 85025; 93005; 93041; 96361; 96374; 99285; J2765; Q9967

== ENCOUNTER 2022-10-26 20:32 | Inpatient (IN) | payer MEDICARE ==
[~2022-10-26] VITALS: Ht 154.9 cm; Wt 85.5 kg
[~2022-10-26 20:32] MED LIST changes: +ALBU1.25 INH; +AMOX875T2; +DOXY100T27; +REGL5TAB2 PO
[2022-10-26] MEDS: ESCITALOPRAM OXALATE 5MG TABLET (LEXAPRO) PO SCH (21:00)
[2022-10-26 22:15] LABS: BASO # 0.1 10^3/uL (0.0-0.2); BASO % 0.5 % (0.0-1.0); EOS # 0.2 10^3/uL (0.0-0.5); EOS % 1.4 % (0.0-3.0); HEMOGLOBIN 11.6 g/dl (12.0-15.5); LYMPH # 1.5 10^3/uL (1.5-5.0); LYMPH % 12.2 % (24.0-44.0); MEAN CORPUSCULAR HEMOGLOBIN 29.6 pg (27.0-33.0); MEAN CORPUSCULAR HGB CONC 32.2 g/dl (32.0-36.5); MEAN CORPUSCULAR VOLUME 91.8 fl (80.0-96.0); MONO # 1.1 10^3/uL (0.0-0.8); MONO % 8.9 % (2.0-8.0); NEUTROPHILS # 9.5 10^3/uL (1.5-8.5); NEUTROPHILS % 76.7 % (36.0-66.0); PLATELET COUNT, AUTOMATED 258 10^3/uL (150-450); RED BLOOD COUNT 3.92 10^6/uL (4.00-5.40); WHITE BLOOD COUNT 12.4 10^3/uL (4.0-10.0)
[2022-10-26 22:37] LABS: LIPASE 31 U/L (12-53)
[2022-10-26 22:51] LABS: ALBUMIN 3.3 G/DL (3.2-5.2); ALKALINE PHOSPHATASE 87 U/L (46-116); ALT/SGPT 13 U/L (7.0-40); AST/SGOT 17 U/L (<34); BILIRUBIN,DIRECT 0.1 MG/DL (<0.4); BILIRUBIN,TOTAL 0.4 MG/DL (0.3-1.2); BLOOD UREA NITROGEN 9 MG/DL (9-23); CALCIUM LEVEL 8.9 MG/DL (8.3-10.6); CARBON DIOXIDE LEVEL 28 MMOL/L (20-31); CHLORIDE LEVEL 101 MMOL/L (98-107); CK-MB VALUE MASS < 1.0 NG/ML (<3.6); CPK CREATINE PHOSPHOKINASE 43 U/L (34-145); CREATININE FOR GFR 0.65 MG/DL (0.55-1.30); GLOMERULAR FILTRATION RATE > 60.0 (>39); GLUCOSE, FASTING 114 MG/DL (74-106); MB/CK RELATIVE INDEX 2.32 (< OR =4); POTASSIUM SERUM 4.1 MMOL/L (3.5-5.1); SODIUM LEVEL 137 MMOL/L (136-145); THYROID STIMULATING HORMONE 2.635 uIU/ML (0.55-4.78); TOTAL PROTEIN 6.7 G/DL (5.7-8.2)
[2022-10-26] MEDS ORDERED: ISOVUE-370 76% 100ML VIAL As Ordered ONE (23:01)
[2022-10-27] MEDS ORDERED: DONE10TA90 PO (00:57)
[2022-10-27] MEDS ORDERED: FAMO40TA3 PO (00:57)
[2022-10-27] MEDS ORDERED: PREG50CA PO (00:58)
[2022-10-27] MEDS ORDERED: HOME MED LIST COMPLETE! XX SCH (01:00)
[2022-10-27] MEDS: LR 1,000 ML IV SCH ×2 (01:25→10:09)
[2022-10-27] MEDS ORDERED: NS 1,000 ML IV ONE (01:25)
[2022-10-27] MEDS ORDERED: ALBUTEROL SULFATE 2.5MG/0.5ML INH NEB SOLN NEB PRN (01:25)
[2022-10-27] MEDS: IPRATROPIUM 0.5MG/ALBUTEROL 2.5MG INH SOL UD 3ML (DUONEB) NEB SCH ×6 (02:00→19:26)
[2022-10-27] MEDS ORDERED: ASPIRIN 300 MG SUPP PR ONE (02:00)
[2022-10-27] MEDS: ADVAIR HFA 115/21MCG INHALER INH SCH ×2 (08:00→19:27)
[2022-10-27 08:09] LABS: C REACTIVE PROTEIN QUANTITATIV < 0.40 MG/DL (<1.0)
[2022-10-27 08:11] LABS: ALBUMIN 3.2 G/DL (3.2-5.2); ALKALINE PHOSPHATASE 88 U/L (46-116); ALT/SGPT 9 U/L (7.0-40); AST/SGOT < 8 U/L (<34); BILIRUBIN,TOTAL 0.5 MG/DL (0.3-1.2); BLOOD UREA NITROGEN 6 MG/DL (9-23); CALCIUM LEVEL 8.8 MG/DL (8.3-10.6); CARBON DIOXIDE LEVEL 28 MMOL/L (20-31); CHLORIDE LEVEL 104 MMOL/L (98-107); GLOMERULAR FILTRATION RATE > 60.0 (>39); GLUCOSE, FASTING 100 MG/DL (74-106); POTASSIUM SERUM 3.9 MMOL/L (3.5-5.1); SODIUM LEVEL 141 MMOL/L (136-145); TOTAL PROTEIN 6.4 G/DL (5.7-8.2)
[2022-10-27 08:23] LABS: PROCALCITONIN <0.04 ng/ml
[2022-10-27 09:00] VITALS: BP 166/81; TEMP 97.5; O2SAT 93
[2022-10-27] MEDS ORDERED: PANTOPRAZOLE 40MG TAB (PROTONIX) PO SCH (09:00)
[2022-10-27] MEDS ORDERED: ASPIRIN 81MG CHEW TABLET PO SCH (09:00)
[2022-10-27] MEDS: IRBESARTAN 150MG TAB PO SCH (10:08)
[2022-10-27] MEDS: amLODIPine 5 MG TAB PO SCH (10:09)
[2022-10-27] MEDS: HEPARIN SOD (PORCINE) 5000UNITS/ML 1ML VIAL/SYRINGE SC SCH ×2 (10:09→20:40)
[2022-10-27] MEDS ORDERED: FLUTICASONE PROP 0.05% NASAL SPRAY 16 GM (FLONASE) NARES PRN (11:10)
[2022-10-27] MEDS: ONDANSETRON 4MG 2ML VIAL IV PRN (12:30)
[2022-10-27] MEDS: MAALOX 30 ML SUSP *UDC PO PRN (14:08)
[2022-10-27 15:29] VITALS: BP 159/79; TEMP 97.5; O2SAT 98
[2022-10-27 17:32] LABS: ABG BASE EXCESS 1.3 (-2.0-2.0); ABG HCO3 25.5 MMOL/L (22.0-26.0); ABG O2 SATURATION 95.6 % (95.0-99.0); ABG PARTIAL PRESSURE CO2 38.9 mmHg (35.0-45.0); ABG PARTIAL PRESSURE O2 80.2 mmHg (75.0-100.0); ABG STANDARD HCO3 25.6 MMOL/L. (22.0-26.0); ABG TOTAL CO2 26.7 MMOL/L (23.0-31.0); ABG pH (ARTERIAL) 7.435 UNITS (7.350-7.450)
[2022-10-27 19:07] VITALS: TEMP 98.9
[2022-10-27] MEDS: ATORVASTATIN 20 MG TAB PO SCH (20:39)
[2022-10-27] MEDS: ESCITALOPRAM OXALATE 5MG TABLET (LEXAPRO) PO SCH (20:39)
[2022-10-27] MEDS: PANTOPRAZOLE 40MG TAB (PROTONIX) PO SCH (20:40)
[2022-10-27] MEDS ORDERED: ATORVASTATIN 20 MG TAB PO SCH (21:00)
[2022-10-27] MEDS ORDERED: ISOVUE-370 76% 100ML VIAL As Ordered ONE (21:35)
[2022-10-27 22:00] VITALS: BP 155/82; TEMP 99.3; O2SAT 93
[2022-10-27] MEDS: APIXABAN 5 MG TAB (ELIQUIS) PO SCH (23:12)
[2022-10-28] VITALS (7 sets, daily range): BP systolic 119–144; BP diastolic 59–75; TEMP 97.5–98.1; O2SAT 92–98
[2022-10-28] MEDS: IPRATROPIUM 0.5MG/ALBUTEROL 2.5MG INH SOL UD 3ML (DUONEB) NEB SCH ×4 (02:33→21:00)
[2022-10-28 04:08] LABS: INR 1.15; PROTHROMBIN TIME 14.4 SECONDS (12.5-14.5)
[2022-10-28 04:09] LABS: PARTIAL THROMBOPLASTIN TIME 26.4 SECONDS (24.8-34.2)
[2022-10-28] MEDS: ADVAIR HFA 115/21MCG INHALER INH SCH ×2 (07:27→21:00)
[2022-10-28] MEDS: amLODIPine 5 MG TAB PO SCH (08:37)
[2022-10-28] MEDS: IRBESARTAN 150MG TAB PO SCH (08:37)
[2022-10-28] MEDS: PANTOPRAZOLE 40MG TAB (PROTONIX) PO SCH ×2 (08:37→21:27)
[2022-10-28] MEDS: APIXABAN 5 MG TAB (ELIQUIS) PO SCH ×2 (08:37→21:27)
[2022-10-28] MEDS: ONDANSETRON 4MG 2ML VIAL IV PRN ×2 (08:38→18:15)
[2022-10-28] MEDS: MAALOX 30 ML SUSP *UDC PO PRN (08:38)
[2022-10-28] MEDS ORDERED: SENNA 8.6 MG TAB (SENOKOT) PO PRN (11:05)
[2022-10-28] MEDS ORDERED: MIRALAX *UNIT DOSE* 17GM PACKET PO PRN (11:05)
[2022-10-28] MEDS: FAMOTIDINE 20 MG TAB PO SCH (21:27)
[2022-10-28] MEDS: ATORVASTATIN 20 MG TAB PO SCH (21:27)
[2022-10-28] MEDS: ESCITALOPRAM OXALATE 5MG TABLET (LEXAPRO) PO SCH (21:28)
[2022-10-29] MEDS: IPRATROPIUM 0.5MG/ALBUTEROL 2.5MG INH SOL UD 3ML (DUONEB) NEB SCH ×4 (01:10→20:23)
[2022-10-29 06:24] LABS: BASO # 0.1 10^3/uL (0.0-0.2); BASO % 1.1 % (0.0-1.0); EOS # 0.3 10^3/uL (0.0-0.5); EOS % 3.3 % (0.0-3.0); HEMOGLOBIN 11.3 g/dl (12.0-15.5); LYMPH # 1.4 10^3/uL (1.5-5.0); LYMPH % 13.8 % (24.0-44.0); MEAN CORPUSCULAR HEMOGLOBIN 30.2 pg (27.0-33.0); MEAN CORPUSCULAR HGB CONC 32.3 g/dl (32.0-36.5); MEAN CORPUSCULAR VOLUME 93.6 fl (80.0-96.0); MONO # 1.2 10^3/uL (0.0-0.8); MONO % 11.3 % (2.0-8.0); NEUTROPHILS # 7.1 10^3/uL (1.5-8.5); PLATELET COUNT, AUTOMATED 235 10^3/uL (150-450); RED BLOOD COUNT 3.74 10^6/uL (4.00-5.40); WHITE BLOOD COUNT 10.2 10^3/uL (4.0-10.0)
[2022-10-29 06:27] VITALS: BP 138/82; TEMP 97.5; O2SAT 96
[2022-10-29 06:40] LABS: BLOOD UREA NITROGEN 11 MG/DL (9-23); CALCIUM LEVEL 8.6 MG/DL (8.3-10.6); CARBON DIOXIDE LEVEL 29 MMOL/L (20-31); CHLORIDE LEVEL 102 MMOL/L (98-107); CREATININE FOR GFR 0.73 MG/DL (0.55-1.30); GLOMERULAR FILTRATION RATE > 60.0 (>39); GLUCOSE, FASTING 106 MG/DL (74-106); POTASSIUM SERUM 3.7 MMOL/L (3.5-5.1); SODIUM LEVEL 141 MMOL/L (136-145)
[2022-10-29 08:10] VITALS: O2SAT 96
[2022-10-29] MEDS: ADVAIR HFA 115/21MCG INHALER INH SCH ×2 (08:12→20:23)
[2022-10-29] MEDS: FAMOTIDINE 20 MG TAB PO SCH ×2 (08:32→20:03)
[2022-10-29] MEDS: amLODIPine 5 MG TAB PO SCH (08:32)
[2022-10-29] MEDS: PANTOPRAZOLE 40MG TAB (PROTONIX) PO SCH ×2 (08:33→20:03)
[2022-10-29] MEDS: APIXABAN 5 MG TAB (ELIQUIS) PO SCH ×2 (08:33→20:03)
[2022-10-29] MEDS: IRBESARTAN 150MG TAB PO SCH (08:33)
[2022-10-29 14:00] VITALS: BP 111/70; TEMP 98.2; O2SAT 95
[2022-10-29] MEDS ORDERED: ACETAMINOPHEN TAB 650MG DOSE (2X325MG) PO PRN (14:50)
[2022-10-29] MEDS: ESCITALOPRAM OXALATE 5MG TABLET (LEXAPRO) PO SCH (20:03)
[2022-10-29] MEDS: ATORVASTATIN 20 MG TAB PO SCH (20:03)
[2022-10-29 20:18] VITALS: BP 128/69; TEMP 97.5; O2SAT 94
[2022-10-30] MEDS: IPRATROPIUM 0.5MG/ALBUTEROL 2.5MG INH SOL UD 3ML (DUONEB) NEB SCH ×3 (02:00→13:12)
[2022-10-30 06:00] VITALS: BP 126/86; TEMP 97; O2SAT 95
[2022-10-30 06:00] LABS: BASO # 0.1 10^3/uL (0.0-0.2); BASO % 0.8 % (0.0-1.0); EOS # 0.3 10^3/uL (0.0-0.5); EOS % 2.9 % (0.0-3.0); HEMATOCRIT 33.7 % (36.0-47.0); HEMOGLOBIN 10.7 g/dl (12.0-15.5); LYMPH # 1.3 10^3/uL (1.5-5.0); LYMPH % 14.2 % (24.0-44.0); MEAN CORPUSCULAR HGB CONC 31.8 g/dl (32.0-36.5); MEAN CORPUSCULAR VOLUME 94.4 fl (80.0-96.0); MONO % 10.7 % (2.0-8.0); NEUTROPHILS # 6.4 10^3/uL (1.5-8.5); NEUTROPHILS % 71.2 % (36.0-66.0); PLATELET COUNT, AUTOMATED 231 10^3/uL (150-450); RED BLOOD COUNT 3.57 10^6/uL (4.00-5.40)
[2022-10-30 06:26] LABS: BLOOD UREA NITROGEN 13 MG/DL (9-23); CALCIUM LEVEL 8.8 MG/DL (8.3-10.6); CARBON DIOXIDE LEVEL 30 MMOL/L (20-31); CHLORIDE LEVEL 101 MMOL/L (98-107); CREATININE FOR GFR 0.77 MG/DL (0.55-1.30); GLOMERULAR FILTRATION RATE > 60.0 (>39); GLUCOSE, FASTING 106 MG/DL (74-106); POTASSIUM SERUM 3.8 MMOL/L (3.5-5.1); SODIUM LEVEL 139 MMOL/L (136-145)
[2022-10-30] MEDS: ADVAIR HFA 115/21MCG INHALER INH SCH (07:42)
[2022-10-30] MEDS: FAMOTIDINE 20 MG TAB PO SCH (10:11)
[2022-10-30] MEDS: APIXABAN 5 MG TAB (ELIQUIS) PO SCH (10:12)
[2022-10-30] MEDS: amLODIPine 5 MG TAB PO SCH (10:12)
[2022-10-30] MEDS: PANTOPRAZOLE 40MG TAB (PROTONIX) PO SCH (10:12)
[2022-10-30] MEDS ORDERED: ELIQ5TAB PO (11:50)
[2022-10-30] MEDS ORDERED: E-Z-PAQUE 96% w/w SUSP 176GM BTL As Ordered ONE (11:59)
[2022-10-30] MEDS ORDERED: E-Z-GAS II EFFERVESCENT PACKET (SODIUM BICARB./CITRIC ACID/SIMETHICONE) As Ordered ONE (11:59)
[2022-10-30] MEDS ORDERED: E-Z-HD 98% w/w 340GM SUSP BTL As Ordered ONE (11:59)
[2022-10-30 12:07] VITALS: BP 144/71
[2022-10-30] MEDS: IRBESARTAN 150MG TAB PO SCH (12:07)
[2022-10-30 13:09] VITALS: BP 138/78; TEMP 97.9; O2SAT 96
[2022-11-03] MEDS ORDERED: APIXABAN 5 MG TAB (ELIQUIS) PO SCH (21:00)
== END 2022-10-30 17:54 | disposition home health service (06) | DRG 70 ==
LOC: M ED 20:32 → M ED INP 10-27 01:21 → M MSPAV 10-27 08:56
PROVIDERS: ADMIT Internal Medicine; ATTEND Internal Medicine
PROC: B246ZZZ Ultrasonography of Right and Left Heart (ICD-10-PCS; principal; 2022-10-29)
DX: G93.41 Metabolic encephalopathy (principal); I26.99 Other pulmonary embolism without acute cor pulmonale; J96.01 Acute respiratory failure with hypoxia; R44.3 Hallucinations, unspecified; F02.80 Dementia in other diseases classified elsewhere, unspecified severity, without behavioral disturbance, psychotic disturbance, mood disturbance, and anxiety; J45.909 Unspecified asthma, uncomplicated; I10 Essential (primary) hypertension; K21.9 Gastro-esophageal reflux disease without esophagitis; K80.20 Calculus of gallbladder without cholecystitis without obstruction; I16.0 Hypertensive urgency; G30.9 Alzheimer's disease, unspecified; E04.1 Nontoxic single thyroid nodule; Z66 Do not resuscitate; Z96.641 Presence of right artificial hip joint; Z79.899 Other long term (current) drug therapy; Z88.5 Allergy status to narcotic agent

== ENCOUNTER → 2023-02-15 | Outpatient (CLI) | payer MEDICARE, MEDICAID ==
[~2023-02-15] MED LIST changes: +CELE0.09 PO; -CELE1CAP9 PO; +ELIQ5TAB PO; -FLUT50SP17; +FLUTISP; +MECL-209 PO; -MECL1TAB31 PO; -PREG25CA2 PO; +PREG25CA3 PO
== END ==
LOC: M RAD 08:30
PROVIDERS: ATTEND Nurse Practitioner Family
DX: K80.20 Calculus of gallbladder without cholecystitis without obstruction (principal); R10.9 Unspecified abdominal pain

== ENCOUNTER → 2023-04-17 | Outpatient (CLI) | payer MEDICARE, MEDICAID ==
[~2023-04-17] MED LIST changes: +IRBE150T27 PO; -IRBE150T7 PO
[2023-04-17 17:21] LABS: BASO # 0.1 10^3/uL (0.0-0.2); BASO % 0.7 % (0.0-1.0); EOS # 0.3 10^3/uL (0.0-0.5); EOS % 2.6 % (0.0-3.0); HEMATOCRIT 34.7 % (36.0-47.0); HEMOGLOBIN 11.1 g/dl (12.0-15.5); LYMPH # 1.3 10^3/uL (1.5-5.0); LYMPH % 11.8 % (24.0-44.0); MEAN CORPUSCULAR HEMOGLOBIN 29.9 pg (27.0-33.0); MEAN CORPUSCULAR VOLUME 93.5 fl (80.0-96.0); MONO # 1.1 10^3/uL (0.0-0.8); MONO % 9.6 % (2.0-8.0); NEUTROPHILS # 8.2 10^3/uL (1.5-8.5); NEUTROPHILS % 74.9 % (36.0-66.0); PLATELET COUNT, AUTOMATED 346 10^3/uL (150-450); RED BLOOD COUNT 3.71 10^6/uL (4.00-5.40)
[2023-04-17 17:50] LABS: ALBUMIN 3.4 G/DL (3.2-5.2); ALKALINE PHOSPHATASE 77 U/L (46-116); ALT/SGPT 14 U/L (7.0-40); AST/SGOT 11 U/L (<34); BILIRUBIN,TOTAL 0.2 MG/DL (0.3-1.2); BLOOD UREA NITROGEN 15 MG/DL (9-23); CALCIUM LEVEL 8.7 MG/DL (8.3-10.6); CARBON DIOXIDE LEVEL 29 MMOL/L (20-31); CHLORIDE LEVEL 101 MMOL/L (98-107); CREATININE FOR GFR 0.78 MG/DL (0.55-1.30); GLOMERULAR FILTRATION RATE > 60.0 (>39); GLUCOSE, FASTING 94 MG/DL (74-106); IRON (FE) 37 UG/DL (50-170); PERCENT SATURATION 11.7 % (13.2-45.0); POTASSIUM SERUM 4.8 MMOL/L (3.5-5.1); SODIUM LEVEL 136 MMOL/L (136-145); TOTAL IRON BINDING CAPACITY 315 UG/DL (250-425); TOTAL PROTEIN 6.9 G/DL (5.7-8.2)
[2023-04-17 17:52] LABS: FOLATE 9.47 NG/ML (>5.4); THYROID STIMULATING HORMONE 2.308 uIU/ML (0.55-4.78); VITAMIN B12 LEVEL 1321 PG/ML (211-911)
[2023-04-17 17:53] LABS: FREE T4 0.91 NG/DL (0.89-1.76)
== END ==
LOC: M WUC 11:06
PROVIDERS: ATTEND Family Medicine
DX: D64.9 Anemia, unspecified (principal); E66.9 Obesity, unspecified; F03.90 Unspecified dementia, unspecified severity, without behavioral disturbance, psychotic disturbance, mood disturbance, and anxiety; R06.02 Shortness of breath

== ENCOUNTER → 2023-04-19 | Outpatient (CLI) | payer MEDICARE, MEDICAID ==
[~2023-04-19] MED LIST changes: +ISOVUE-370 76% 100ML VIAL ONE
== END ==
LOC: M PLAIMG 08:31
PROVIDERS: ATTEND Family Medicine
DX: J98.11 Atelectasis (principal); I25.10 Atherosclerotic heart disease of native coronary artery without angina pectoris; E04.1 Nontoxic single thyroid nodule; R93.89 Abnormal findings on diagnostic imaging of other specified body structures
CPT/HCPCS: 71260; Q9967

== ENCOUNTER 2023-04-23 11:07 | Emergency (ER) | payer MEDICARE, MEDICAID ==
[~2023-04-23] VITALS: Ht 149.9 cm; Wt 89.9 kg
[~2023-04-23 11:07] MED LIST changes: -ISOVUE-370 76% 100ML VIAL ONE
[2023-04-23 13:26] LABS: BASO # 0.1 10^3/uL (0.0-0.2); BASO % 0.7 % (0.0-1.0); EOS # 0.3 10^3/uL (0.0-0.5); EOS % 2.2 % (0.0-3.0); HEMATOCRIT 32.6 % (36.0-47.0); HEMOGLOBIN 10.6 g/dl (12.0-15.5); LYMPH # 1.3 10^3/uL (1.5-5.0); LYMPH % 11.9 % (24.0-44.0); MEAN CORPUSCULAR HEMOGLOBIN 30.3 pg (27.0-33.0); MEAN CORPUSCULAR HGB CONC 32.5 g/dl (32.0-36.5); MEAN CORPUSCULAR VOLUME 93.1 fl (80.0-96.0); MONO # 1.3 10^3/uL (0.0-0.8); MONO % 11.7 % (2.0-8.0); NEUTROPHILS # 8.3 10^3/uL (1.5-8.5); NEUTROPHILS % 73.2 % (36.0-66.0); PLATELET COUNT, AUTOMATED 355 10^3/uL (150-450); WHITE BLOOD COUNT 11.3 10^3/uL (4.0-10.0)
[2023-04-23 13:34] LABS: INR 1.3; PROTHROMBIN TIME 15.7 SECONDS (12.5-14.5)
[2023-04-23 13:46] LABS: LIPASE 31 U/L (12-53)
[2023-04-23 13:48] LABS: ALKALINE PHOSPHATASE 77 U/L (46-116); ALT/SGPT 10 U/L (7.0-40); AST/SGOT 8 U/L (<34); BILIRUBIN,DIRECT < 0.1 MG/DL (<0.4); BILIRUBIN,TOTAL 0.2 MG/DL (0.3-1.2); BLOOD UREA NITROGEN 14 MG/DL (9-23); CALCIUM LEVEL 8.5 MG/DL (8.3-10.6); CARBON DIOXIDE LEVEL 28 MMOL/L (20-31); CHLORIDE LEVEL 104 MMOL/L (98-107); CREATININE FOR GFR 0.73 MG/DL (0.55-1.30); GLOMERULAR FILTRATION RATE > 60.0 (>39); GLUCOSE, FASTING 117 MG/DL (74-106); POTASSIUM SERUM 4.3 MMOL/L (3.5-5.1); SODIUM LEVEL 137 MMOL/L (136-145); TOTAL PROTEIN 6.8 G/DL (5.7-8.2)
[2023-04-23] MEDS ORDERED: ISOVUE-370 76% 100ML VIAL As Ordered ONE (14:04)
[2023-04-23 14:10] LABS: RSV AMPLIFICATION NEGATIVE (NEGATIVE)
[2023-04-23] MEDS: ACETAMINOPHEN 325 MG TAB PO ONE (16:04)
[2023-04-23 17:57] VITALS: O2SAT 96
[2023-04-23 18:15] VITALS: BP 127/55; TEMP 98
[2023-04-23 18:18] VITALS: O2SAT 96
== END 2023-04-23 18:35 | disposition home or self-care (01) ==
LOC: M ED 11:07 → EDBD 11:07 → M ED 18:35
DX: M79.651 Pain in right thigh (principal); I10 Essential (primary) hypertension; K21.9 Gastro-esophageal reflux disease without esophagitis; E78.5 Hyperlipidemia, unspecified; F41.9 Anxiety disorder, unspecified; J44.9 Chronic obstructive pulmonary disease, unspecified; G30.9 Alzheimer's disease, unspecified; Z79.01 Long term (current) use of anticoagulants; Z88.5 Allergy status to narcotic agent; Z79.899 Other long term (current) drug therapy; Z79.51 Long term (current) use of inhaled steroids
CPT/HCPCS: 36415; 74177; 80048; 80076; 81001; 83605; 83690; 85025; 85610; 85730; 87040; 87086; 87631; 93005; 93041; 93971; 99285; Q9967

== ENCOUNTER 2023-05-09 10:23 | Observation (INO) | payer MEDICARE, MEDICAID ==
[~2023-05-09] VITALS: Ht 149.9 cm; Wt 89.3 kg
[2023-05-09 13:46] LABS: BASO # 0.1 10^3/uL (0.0-0.2); BASO % 0.4 % (0.0-1.0); EOS # 0.1 10^3/uL (0.0-0.5); EOS % 0.8 % (0.0-3.0); HEMATOCRIT 33.8 % (36.0-47.0); LYMPH # 1.1 10^3/uL (1.5-5.0); LYMPH % 6.7 % (24.0-44.0); MEAN CORPUSCULAR HEMOGLOBIN 29.6 pg (27.0-33.0); MEAN CORPUSCULAR HGB CONC 32.5 g/dl (32.0-36.5); MEAN CORPUSCULAR VOLUME 91.1 fl (80.0-96.0); MONO # 1.4 10^3/uL (0.0-0.8); MONO % 8.6 % (2.0-8.0); NEUTROPHILS % 83.1 % (36.0-66.0); PLATELET COUNT, AUTOMATED 307 10^3/uL (150-450); RED BLOOD COUNT 3.71 10^6/uL (4.00-5.40); WHITE BLOOD COUNT 15.6 10^3/uL (4.0-10.0)
[2023-05-09] MEDS: ACETAMINOPHEN 500 MG TAB PO ONE (14:18)
[2023-05-09] MEDS ORDERED: ELIQ5TAB PO (14:26)
[2023-05-09] MEDS ORDERED: HOME MED LIST COMPLETE! XX SCH (14:30)
[2023-05-09 15:25] LABS: ALBUMIN 3.3 G/DL (3.2-5.2); ALKALINE PHOSPHATASE 79 U/L (46-116); ALT/SGPT 13 U/L (7.0-40); AST/SGOT 8 U/L (<34); BILIRUBIN,TOTAL 0.4 MG/DL (0.3-1.2); BLOOD UREA NITROGEN 13 MG/DL (9-23); CALCIUM LEVEL 8.8 MG/DL (8.3-10.6); CARBON DIOXIDE LEVEL 30 MMOL/L (20-31); CHLORIDE LEVEL 99 MMOL/L (98-107); GLOMERULAR FILTRATION RATE > 60.0 (>39); GLUCOSE, FASTING 103 MG/DL (74-106); POTASSIUM SERUM 4.6 MMOL/L (3.5-5.1); SODIUM LEVEL 134 MMOL/L (136-145); TOTAL PROTEIN 7.2 G/DL (5.7-8.2)
[2023-05-09] MEDS ORDERED: ISOVUE-370 76% 100ML VIAL As Ordered ONE (15:41)
[2023-05-09] MEDS: cefTRIAXone SOD 1 GM in D5W MINI-BAG PLUS 50 ML IV ONE (18:18)
[2023-05-09] MEDS ORDERED: ALBUTEROL SULFATE 2.5MG/0.5ML INH NEB SOLN INH PRN (19:00)
[2023-05-09] MEDS: ADVAIR HFA 115/21MCG INHALER INH SCH (20:21)
[2023-05-09] MEDS: ESCITALOPRAM OXALATE 5MG TABLET (LEXAPRO) PO SCH (21:56)
[2023-05-09] MEDS: APIXABAN 5 MG TAB (ELIQUIS) PO SCH (21:57)
[2023-05-09] MEDS: FAMOTIDINE 20 MG TAB PO SCH (21:57)
[2023-05-09] MEDS: ATORVASTATIN 20 MG TAB PO SCH (21:57)
[2023-05-09] MEDS: PREGABALIN 50 MG CAP (LYRICA) PO SCH (21:57)
[2023-05-09] MEDS: OMEPRAZOLE 20MG CAP PO SCH (21:57)
[2023-05-09] MEDS: ACETAMINOPHEN TAB 650MG DOSE (2X325MG) PO PRN (22:02)
[2023-05-10 05:51] VITALS: BP 138/73; TEMP 97.7; O2SAT 95
[2023-05-10 06:29] LABS: BASO # 0.1 10^3/uL (0.0-0.2); BASO % 0.5 % (0.0-1.0); EOS # 0.2 10^3/uL (0.0-0.5); EOS % 1.9 % (0.0-3.0); HEMATOCRIT 32.2 % (36.0-47.0); HEMOGLOBIN 10.8 g/dl (12.0-15.5); LYMPH % 11.2 % (24.0-44.0); MEAN CORPUSCULAR HEMOGLOBIN 30.1 pg (27.0-33.0); MEAN CORPUSCULAR HGB CONC 33.5 g/dl (32.0-36.5); MEAN CORPUSCULAR VOLUME 89.7 fl (80.0-96.0); MONO # 1.1 10^3/uL (0.0-0.8); MONO % 12.1 % (2.0-8.0); NEUTROPHILS # 6.8 10^3/uL (1.5-8.5); NEUTROPHILS % 74.1 % (36.0-66.0); PLATELET COUNT, AUTOMATED 276 10^3/uL (150-450); RED BLOOD COUNT 3.59 10^6/uL (4.00-5.40); WHITE BLOOD COUNT 9.2 10^3/uL (4.0-10.0)
[2023-05-10 06:44] LABS: BLOOD UREA NITROGEN 11 MG/DL (9-23); CALCIUM LEVEL 9.1 MG/DL (8.3-10.6); CARBON DIOXIDE LEVEL 31 MMOL/L (20-31); CHLORIDE LEVEL 103 MMOL/L (98-107); CREATININE FOR GFR 0.68 MG/DL (0.55-1.30); GLOMERULAR FILTRATION RATE > 60.0 (>39); GLUCOSE, FASTING 104 MG/DL (74-106); MAGNESIUM LEVEL 2.1 MG/DL (1.8-2.4); PHOSPHORUS LEVEL 5.1 MG/DL (2.4-5.1); SODIUM LEVEL 140 MMOL/L (136-145)
[2023-05-10 08:02] VITALS: BP 136/73
[2023-05-10] MEDS: PREGABALIN 50 MG CAP (LYRICA) PO SCH (08:02)
[2023-05-10] MEDS: amLODIPine 5 MG TAB PO SCH (08:02)
[2023-05-10] MEDS: DONEPEZIL 5 MG TAB PO SCH (08:02)
[2023-05-10] MEDS: IRBESARTAN 150MG TAB PO SCH (08:02)
[2023-05-10] MEDS: CYANOCOBALAMIN 500 MCG TAB PO SCH (08:03)
[2023-05-10] MEDS ORDERED: CEFD300C PO (11:02)
[2023-05-10 13:23] VITALS: O2SAT 93
[2023-05-10] MEDS ORDERED: cefTRIAXone SOD 1 GM in D5W MINI-BAG PLUS 50 ML IV SCH (19:00)
== END 2023-05-10 14:55 | disposition home health service (06) ==
LOC: M ED 10:23 → M ED INP 10:24 → ENRESERV 19:46 → M MS5PR 21:20
PROVIDERS: ADMIT Internal Medicine; ATTEND Internal Medicine
DX: N39.0 Urinary tract infection, site not specified (principal); R53.1 Weakness; R10.2 Pelvic and perineal pain; Q63.0 Accessory kidney; W17.2XXA Fall into hole, initial encounter; Y92.238 Other place in hospital as the place of occurrence of the external cause; M25.531 Pain in right wrist; Y92.481 Parking lot as the place of occurrence of the external cause; Y93.01 Activity, walking, marching and hiking; Y99.9 Unspecified external cause status; K20.90 Esophagitis, unspecified without bleeding; K29.70 Gastritis, unspecified, without bleeding; K80.50 Calculus of bile duct without cholangitis or cholecystitis without obstruction; Z86.711 Personal history of pulmonary embolism; I10 Essential (primary) hypertension; G30.9 Alzheimer's disease, unspecified; G47.33 Obstructive sleep apnea (adult) (pediatric); E78.9 Disorder of lipoprotein metabolism, unspecified; J45.909 Unspecified asthma, uncomplicated; E04.1 Nontoxic single thyroid nodule; Z96.641 Presence of right artificial hip joint; Z88.5 Allergy status to narcotic agent; Z79.899 Other long term (current) drug therapy; Z79.01 Long term (current) use of anticoagulants; Z82.49 Family history of ischemic heart disease and other diseases of the circulatory system
CPT/HCPCS: 36415; 70450; 71275; 72125; 72192; 73521; 74177; 80048; 80053; 81001; 83605; 83735; 84100; 85025; 87040; 87088; 87186; 87486; 87581; 87633; 87798; 93005; 94010; 94640; 96365; 96366; 97116; 97161; 97165; 97530; 99285; G0378; J0696; Q9967

== ENCOUNTER → 2023-07-18 | Outpatient (CLI) | payer MEDICARE, MEDICAID ==
[~2023-07-18] MED LIST changes: +CEFD300C PO; -ETOD-173 PO; +ETOD-234 PO; +MEMA10TA; -MEMA10TA19
[2023-07-18 12:50] LABS: BASO # 0.1 10^3/uL (0.0-0.2); BASO % 0.9 % (0.0-1.0); EOS # 0.3 10^3/uL (0.0-0.5); EOS % 3.1 % (0.0-3.0); HEMATOCRIT 33.4 % (36.0-47.0); HEMOGLOBIN 10.7 g/dl (12.0-15.5); LYMPH # 1.7 10^3/uL (1.5-5.0); LYMPH % 16.9 % (24.0-44.0); MEAN CORPUSCULAR HEMOGLOBIN 29.7 pg (27.0-33.0); MEAN CORPUSCULAR VOLUME 92.8 fl (80.0-96.0); MONO # 0.8 10^3/uL (0.0-0.8); MONO % 8.4 % (2.0-8.0); NEUTROPHILS # 7.1 10^3/uL (1.5-8.5); NEUTROPHILS % 70.2 % (36.0-66.0); PLATELET COUNT, AUTOMATED 294 10^3/uL (150-450); WHITE BLOOD COUNT 10.1 10^3/uL (4.0-10.0)
[2023-07-18 13:19] LABS: ALBUMIN 3.4 G/DL (3.2-5.2); ALKALINE PHOSPHATASE 86 U/L (46-116); ALT/SGPT 15 U/L (7.0-40); AST/SGOT 15 U/L (<34); BILIRUBIN,TOTAL 0.3 MG/DL (0.3-1.2); BLOOD UREA NITROGEN 14 MG/DL (9-23); CALCIUM LEVEL 8.8 MG/DL (8.3-10.6); CARBON DIOXIDE LEVEL 29 MMOL/L (20-31); CHLORIDE LEVEL 99 MMOL/L (98-107); CREATININE FOR GFR 0.78 MG/DL (0.55-1.30); GLOMERULAR FILTRATION RATE > 60.0 (>39); GLUCOSE, FASTING 103 MG/DL (74-106); POTASSIUM SERUM 4.2 MMOL/L (3.5-5.1); SODIUM LEVEL 136 MMOL/L (136-145)
== END ==
LOC: M WUC 10:19
PROVIDERS: ATTEND Family Medicine
DX: K80.20 Calculus of gallbladder without cholecystitis without obstruction (principal)

== ENCOUNTER → 2023-08-29 | Outpatient (CLI) | payer MEDICARE, MEDICAID ==
[~2023-08-29] MED LIST changes: -AZEL0.055; +AZEL1SPR4; +ONDA-282; +ONDA-282 PO; -ONDA4TAB6; -ONDA4TAB6 PO
[2023-08-29 17:29] LABS: BASO # 0.1 10^3/uL (0.0-0.2); BASO % 0.7 % (0.0-1.0); EOS # 0.3 10^3/uL (0.0-0.5); EOS % 2.9 % (0.0-3.0); HEMOGLOBIN 11.7 g/dl (12.0-15.5); LYMPH # 1.8 10^3/uL (1.5-5.0); MEAN CORPUSCULAR HEMOGLOBIN 29.6 pg (27.0-33.0); MEAN CORPUSCULAR HGB CONC 31.6 g/dl (32.0-36.5); MEAN CORPUSCULAR VOLUME 93.7 fl (80.0-96.0); MONO # 1.1 10^3/uL (0.0-0.8); MONO % 10.4 % (2.0-8.0); NEUTROPHILS # 7.4 10^3/uL (1.5-8.5); NEUTROPHILS % 68.6 % (36.0-66.0); PLATELET COUNT, AUTOMATED 316 10^3/uL (150-450); RED BLOOD COUNT 3.95 10^6/uL (4.00-5.40); WHITE BLOOD COUNT 10.8 10^3/uL (4.0-10.0)
[2023-08-29 17:54] LABS: ALBUMIN 3.5 G/DL (3.2-5.2); ALKALINE PHOSPHATASE 92 U/L (46-116); ALT/SGPT 13 U/L (7.0-40); APPEARANCE, URINE CLOUDY (CLEAR); AST/SGOT 8 U/L (<34); BACTERIA, URINE AUTO 2+ (NEGATIVE); BILIRUBIN, URINE AUTO NEGATIVE (NEGATIVE); BILIRUBIN,TOTAL 0.3 MG/DL (0.3-1.2); BLOOD UREA NITROGEN 15 MG/DL (9-23); BLOOD, URINE BLOOD 2+ (NEGATIVE); CALCIUM LEVEL 9.3 MG/DL (8.3-10.6); CARBON DIOXIDE LEVEL 30 MMOL/L (20-31); CHLORIDE LEVEL 104 MMOL/L (98-107); COLOR, URINE YELLOW (YELLOW); CREATININE FOR GFR 0.76 MG/DL (0.55-1.30); GLOMERULAR FILTRATION RATE > 60.0 (>39); GLUCOSE, FASTING 111 MG/DL (74-106); GLUCOSE, URINE (UA) AUTO NEGATIVE (NEGATIVE); IRON (FE) 53 UG/DL (50-170); KETONE, URINE AUTO NEGATIVE (NEGATIVE); LEUKOCYTE ESTERASE, URINE AUTO 3+ (NEGATIVE); MUCUS, URINE SMALL (NEGATIVE); NITRITE, URINE AUTO NEGATIVE (NEGATIVE); PERCENT SATURATION 14.9 % (13.2-45.0); POTASSIUM SERUM 4.1 MMOL/L (3.5-5.1); PROTEIN, URINE AUTO NEGATIVE (NEGATIVE); RBC, URINE AUTO 8 /HPF (0-3); SODIUM LEVEL 137 MMOL/L (136-145); SPECIFIC GRAVITY URINE AUTO 1.011 (1.002-1.035); SQUAMOUS EPITHELIAL CELL UR AU 9 /HPF (0-6); TOTAL IRON BINDING CAPACITY 356 UG/DL (250-425); TOTAL PROTEIN 7.4 G/DL (5.7-8.2); UROBILINOGEN, URINE AUTO 0.2 mg/dL (0.0-2.0); WBC, URINE AUTO 10 /HPF (0-3)
[2023-08-29 17:58] LABS: FOLATE 9.65 NG/ML (>5.4); TOTAL 25(OH) VITAMIN D 57.2 NG/ML (20.0-100.0)
[2023-08-29 17:59] LABS: FERRITIN 42.5 NG/ML (7.3-270.7); VITAMIN B12 LEVEL 1380 PG/ML (211-911)
== END ==
LOC: M WUC 13:09
PROVIDERS: ATTEND Family Medicine
DX: D64.9 Anemia, unspecified (principal); R53.83 Other fatigue

== ENCOUNTER 2023-11-15 12:03 | Observation (INO) | payer MEDICARE, MEDICAID ==
[~2023-11-15] VITALS: Ht 149.9 cm; Wt 94.6 kg
[2023-11-15 14:32] LABS: BASO # 0.1 10^3/uL (0.0-0.2); BASO % 0.5 % (0.0-1.0); EOS # 0.3 10^3/uL (0.0-0.5); EOS % 2.8 % (0.0-3.0); HEMATOCRIT 32.9 % (36.0-47.0); HEMOGLOBIN 10.6 g/dl (12.0-15.5); LYMPH # 1.3 10^3/uL (1.5-5.0); LYMPH % 13.6 % (24.0-44.0); MEAN CORPUSCULAR HEMOGLOBIN 29.6 pg (27.0-33.0); MEAN CORPUSCULAR HGB CONC 32.2 g/dl (32.0-36.5); MEAN CORPUSCULAR VOLUME 91.9 fl (80.0-96.0); MONO # 0.9 10^3/uL (0.0-0.8); MONO % 9.4 % (2.0-8.0); NEUTROPHILS # 6.8 10^3/uL (1.5-8.5); NEUTROPHILS % 73.4 % (36.0-66.0); PLATELET COUNT, AUTOMATED 275 10^3/uL (150-450); RED BLOOD COUNT 3.58 10^6/uL (4.00-5.40); WHITE BLOOD COUNT 9.2 10^3/uL (4.0-10.0)
[2023-11-15 14:56] LABS: CK-MB VALUE MASS < 1.0 NG/ML (<3.6)
[2023-11-15 14:57] LABS: VENOUS HCO3 27.7 MMOL/L (23.0-27.0); VENOUS O2 SATURATION 68.7 % (60.0-80.0); VENOUS PARTIAL PRESSURE CO2 53.5 mmHg (38.0-50.0); VENOUS PARTIAL PRESSURE O2 37.4 mmHg (30.0-50.0); VENOUS PH 7.332 UNITS (7.330-7.430); VENOUS STANDARD HCO3 24.8 MMOL/L; VENOUS TOTAL CO2 29.3 MMOL/L (24.0-28.0)
[2023-11-15 14:59] LABS: ALBUMIN 3.3 G/DL (3.2-5.2); ALKALINE PHOSPHATASE 80 U/L (46-116); ALT/SGPT 15 U/L (7.0-40); AST/SGOT 13 U/L (<34); BILIRUBIN,DIRECT 0.1 MG/DL (<0.4); BILIRUBIN,TOTAL 0.3 MG/DL (0.3-1.2); CPK CREATINE PHOSPHOKINASE 41 U/L (34-145); MB/CK RELATIVE INDEX 2.43 (< OR =4)
[2023-11-15 15:00] LABS: THYROXINE (T4) 7.2 UG/DL (4.5-10.9)
[2023-11-15 15:01] LABS: THYROID STIMULATING HORMONE 2.752 uIU/ML (0.55-4.78)
[2023-11-15] MEDS: LIDOCAINE 2% 5ML JELLY UROJET TOP ONE (15:25)
[2023-11-15] MEDS: cefTRIAXone SOD 1 GM in D5W MINI-BAG PLUS 50 ML IV ONE (18:59)
[2023-11-15] MEDS ORDERED: ONDA-282 SL (19:35)
[2023-11-15] MEDS ORDERED: DICY-61 PO (19:35)
[2023-11-15] MEDS ORDERED: HOME MED LIST COMPLETE! XX SCH (19:40)
[2023-11-15] MEDS ORDERED: ACETAMINOPHEN TAB 650MG DOSE (2X325MG) PO PRN (20:15)
[2023-11-15] MEDS ORDERED: DICYCLOMINE 10 MG CAP PO PRN (20:15)
[2023-11-15] MEDS ORDERED: MAALOX 30 ML SUSP *UDC PO PRN (20:15)
[2023-11-15] MEDS ORDERED: ALBUTEROL 90 MCG/ACT 8GM HFA INHALER INH PRN (20:15)
[2023-11-15] MEDS ORDERED: MOM 30ML SUSPENSION UDC PO PRN (20:15)
[2023-11-15] MEDS: ADVAIR HFA 115/21MCG INHALER INH SCH (21:10)
[2023-11-15] MEDS: DOCUSATE SODIUM 100MG CAPSULE PO SCH (21:22)
[2023-11-15] MEDS: ESCITALOPRAM OXALATE 5MG TABLET (LEXAPRO) PO SCH (21:22)
[2023-11-15] MEDS: OMEPRAZOLE 20MG CAP PO SCH (21:22)
[2023-11-15] MEDS: FAMOTIDINE 20 MG TAB PO SCH (21:22)
[2023-11-15] MEDS: APIXABAN 5 MG TAB (ELIQUIS) PO SCH (21:22)
[2023-11-15] MEDS: ATORVASTATIN 20 MG TAB PO SCH (21:22)
[2023-11-15] MEDS: PREGABALIN 100 MG CAP (LYRICA) PO SCH (21:23)
[2023-11-15 22:30] VITALS: BP 120/62; TEMP 97.2; O2SAT 96
[2023-11-15 22:47] LABS: BLOOD UREA NITROGEN 11 MG/DL (9-23); CARBON DIOXIDE LEVEL 30 MMOL/L (20-31); CHLORIDE LEVEL 108 MMOL/L (98-107); CREATININE FOR GFR 0.72 MG/DL (0.55-1.30); GLOMERULAR FILTRATION RATE > 60.0 (>39); GLUCOSE, FASTING 101 MG/DL (74-106); POTASSIUM SERUM 3.3 MMOL/L (3.5-5.1); SODIUM LEVEL 141 MMOL/L (136-145)
[2023-11-16] MEDS: POTASSIUM CHLORIDE 10MEQ SR TABLET PO ONE (01:29)
[2023-11-16 04:00] VITALS: BP 123/62; TEMP 97; O2SAT 98
[2023-11-16 05:14] LABS: HEMATOCRIT 32.4 % (36.0-47.0); HEMOGLOBIN 10.5 g/dl (12.0-15.5); MEAN CORPUSCULAR HEMOGLOBIN 29.3 pg (27.0-33.0); MEAN CORPUSCULAR HGB CONC 32.4 g/dl (32.0-36.5); MEAN CORPUSCULAR VOLUME 90.5 fl (80.0-96.0); PLATELET COUNT, AUTOMATED 250 10^3/uL (150-450); RED BLOOD COUNT 3.58 10^6/uL (4.00-5.40); WHITE BLOOD COUNT 9.1 10^3/uL (4.0-10.0)
[2023-11-16 05:40] LABS: ALBUMIN 3.2 G/DL (3.2-5.2); ALKALINE PHOSPHATASE 79 U/L (46-116); ALT/SGPT 13 U/L (7.0-40); AST/SGOT 12 U/L (<34); BILIRUBIN,TOTAL 0.3 MG/DL (0.3-1.2); BLOOD UREA NITROGEN 9 MG/DL (9-23); CALCIUM LEVEL 8.8 MG/DL (8.3-10.6); CARBON DIOXIDE LEVEL 29 MMOL/L (20-31); CHLORIDE LEVEL 104 MMOL/L (98-107); CREATININE FOR GFR 0.67 MG/DL (0.55-1.30); GLOMERULAR FILTRATION RATE > 60.0 (>39); GLUCOSE, FASTING 97 MG/DL (74-106); POTASSIUM SERUM 3.1 MMOL/L (3.5-5.1); SODIUM LEVEL 140 MMOL/L (136-145); TOTAL PROTEIN 6.6 G/DL (5.7-8.2)
[2023-11-16] MEDS: PREGABALIN 50 MG CAP (LYRICA) PO SCH (08:32)
[2023-11-16] MEDS: CYANOCOBALAMIN 500 MCG TAB PO SCH (08:33)
[2023-11-16] MEDS: DONEPEZIL 5 MG TAB PO SCH (08:33)
[2023-11-16] MEDS: IRBESARTAN 150MG TAB PO SCH (08:33)
[2023-11-16] MEDS: amLODIPine 5 MG TAB PO SCH (08:34)
[2023-11-16] MEDS: POTASSIUM CHLORIDE 10MEQ SR TABLET PO SCH (10:47)
[2023-11-16 12:00] VITALS: BP 116/56; TEMP 97.2; O2SAT 96
[2023-11-16] MEDS: cefTRIAXone SOD 1 GM in D5W MINI-BAG PLUS 50 ML IV SCH (17:42)
[2023-11-16 20:14] VITALS: BP 113/54; TEMP 97.3; O2SAT 95
[2023-11-17 03:43] VITALS: BP 147/73; TEMP 97; O2SAT 94
[2023-11-17 05:07] LABS: HEMATOCRIT 31.1 % (36.0-47.0); HEMOGLOBIN 10.2 g/dl (12.0-15.5); MEAN CORPUSCULAR HEMOGLOBIN 29.7 pg (27.0-33.0); MEAN CORPUSCULAR HGB CONC 32.8 g/dl (32.0-36.5); MEAN CORPUSCULAR VOLUME 90.4 fl (80.0-96.0); PLATELET COUNT, AUTOMATED 245 10^3/uL (150-450); RED BLOOD COUNT 3.44 10^6/uL (4.00-5.40); WHITE BLOOD COUNT 7.8 10^3/uL (4.0-10.0)
[2023-11-17 05:42] LABS: ALBUMIN 3.1 G/DL (3.2-5.2); BLOOD UREA NITROGEN 10 MG/DL (9-23); CALCIUM LEVEL 9.2 MG/DL (8.3-10.6); CARBON DIOXIDE LEVEL 27 MMOL/L (20-31); CHLORIDE LEVEL 108 MMOL/L (98-107); CREATININE FOR GFR 0.81 MG/DL (0.55-1.30); GLOMERULAR FILTRATION RATE > 60.0 (>39); GLUCOSE, FASTING 94 MG/DL (74-106); PHOSPHORUS LEVEL 4.3 MG/DL (2.4-5.1); POTASSIUM SERUM 3.9 MMOL/L (3.5-5.1); SODIUM LEVEL 141 MMOL/L (136-145)
[2023-11-17 12:00] VITALS: BP 111/58; TEMP 97.3; O2SAT 96
[2023-11-17] MEDS: NYSTATIN 100,000 UNITS/GM TOPICAL PWD 15GM TOP SCH (13:55)
[2023-11-17 20:00] VITALS: BP 144/70; TEMP 97.3; O2SAT 93; O2SAT 96
[2023-11-17] MEDS: AUGMENTIN 500MG TAB PO SCH (21:09)
[2023-11-18 04:00] VITALS: BP 147/72; TEMP 98.8; O2SAT 98
[2023-11-18 05:05] LABS: HEMATOCRIT 33.6 % (36.0-47.0); HEMOGLOBIN 11.1 g/dl (12.0-15.5); MEAN CORPUSCULAR HEMOGLOBIN 30.2 pg (27.0-33.0); MEAN CORPUSCULAR VOLUME 91.6 fl (80.0-96.0); PLATELET COUNT, AUTOMATED 259 10^3/uL (150-450); RED BLOOD COUNT 3.67 10^6/uL (4.00-5.40); WHITE BLOOD COUNT 7.6 10^3/uL (4.0-10.0)
[2023-11-18 05:32] LABS: BLOOD UREA NITROGEN 10 MG/DL (9-23); CALCIUM LEVEL 9.3 MG/DL (8.3-10.6); CARBON DIOXIDE LEVEL 26 MMOL/L (20-31); CHLORIDE LEVEL 108 MMOL/L (98-107); CREATININE FOR GFR 0.78 MG/DL (0.55-1.30); GLOMERULAR FILTRATION RATE > 60.0 (>39); GLUCOSE, FASTING 94 MG/DL (74-106); POTASSIUM SERUM 4.7 MMOL/L (3.5-5.1); SODIUM LEVEL 140 MMOL/L (136-145)
[2023-11-18 09:28] VITALS: BP 150/71
[2023-11-18] MEDS ORDERED: AMOX500T2 PO (11:48)
[2023-11-18 12:00] VITALS: BP 139/72; TEMP 97.3; O2SAT 93
== END 2023-11-18 14:36 | disposition home or self-care (01) ==
LOC: M ED 12:03 → M ED INP 12:04 → INTOOBSV 12:04 → M MSPAV 22:30
PROVIDERS: ADMIT Family Medicine; ATTEND Family Medicine
DX: N39.0 Urinary tract infection, site not specified (principal); R41.0 Disorientation, unspecified; E87.6 Hypokalemia; F02.80 Dementia in other diseases classified elsewhere, unspecified severity, without behavioral disturbance, psychotic disturbance, mood disturbance, and anxiety; G30.9 Alzheimer's disease, unspecified; H70.13 Chronic mastoiditis, bilateral; I67.82 Cerebral ischemia; Z87.440 Personal history of urinary (tract) infections; R51.9 Headache, unspecified; R68.83 Chills (without fever); R42 Dizziness and giddiness; R06.02 Shortness of breath; R05.3 Chronic cough; R19.7 Diarrhea, unspecified; R11.0 Nausea; I10 Essential (primary) hypertension; J45.909 Unspecified asthma, uncomplicated; E78.5 Hyperlipidemia, unspecified; K22.70 Barrett's esophagus without dysplasia; Z86.711 Personal history of pulmonary embolism; Z88.5 Allergy status to narcotic agent; Z88.8 Allergy status to other drugs, medicaments and biological substances; Z79.899 Other long term (current) drug therapy; Z79.01 Long term (current) use of anticoagulants; Z96.641 Presence of right artificial hip joint; Z98.41 Cataract extraction status, right eye; Z98.42 Cataract extraction status, left eye; Z98.890 Other specified postprocedural states; Z82.49 Family history of ischemic heart disease and other diseases of the circulatory system; Z83.6 Family history of other diseases of the respiratory system; Z82.3 Family history of stroke; Z66 Do not resuscitate
CPT/HCPCS: 36415; 51701; 70450; 71045; 76775; 80047; 80048; 80053; 80069; 80076; 81001; 82550; 82553; 82803; 83605; 83735; 83880; 84436; 84443; 84484; 85025; 85027; 87040; 87086; 87486; 87581; 87633; 87798; 93005; 93041; 94640; 94664; 94760; 96365; 96376; 97116; 97161; 99285; G0378; J0696

== ENCOUNTER → 2023-11-27 | Outpatient (REF) | payer MEDICARE, MEDICAID ==
[~2023-11-27] MED LIST changes: +AMOX500T2 PO; +DICY-61 PO; +ONDA-282 SL
== END ==
LOC: M SFHCPLAZ 12:45
PROVIDERS: ATTEND Physician Assistant Medical
DX: N39.0 Urinary tract infection, site not specified (principal)

== ENCOUNTER 2023-12-24 14:52 | Observation (INO) | payer MEDICARE, MEDICAID ==
[~2023-12-24] VITALS: Ht 149.9 cm; Wt 97.2 kg
[2023-12-24 16:18] LABS: VENOUS BASE EXCESS -0.5 (-2.0-2.0); VENOUS HCO3 26.7 MMOL/L (23.0-27.0); VENOUS PH 7.296 UNITS (7.330-7.430); VENOUS STANDARD HCO3 23.4 MMOL/L; VENOUS TOTAL CO2 28.4 MMOL/L (24.0-28.0)
[2023-12-24 16:23] LABS: BASO % 0.4 % (0.0-1.0); EOS # 0.3 10^3/uL (0.0-0.5); EOS % 3.3 % (0.0-3.0); HEMATOCRIT 33.3 % (36.0-47.0); HEMOGLOBIN 10.5 g/dl (12.0-15.5); LYMPH # 1.4 10^3/uL (1.5-5.0); LYMPH % 14.7 % (24.0-44.0); MEAN CORPUSCULAR HEMOGLOBIN 29.4 pg (27.0-33.0); MEAN CORPUSCULAR HGB CONC 31.5 g/dl (32.0-36.5); MEAN CORPUSCULAR VOLUME 93.3 fl (80.0-96.0); MONO # 0.9 10^3/uL (0.0-0.8); MONO % 9.2 % (2.0-8.0); NEUTROPHILS # 6.8 10^3/uL (1.5-8.5); PLATELET COUNT, AUTOMATED 263 10^3/uL (150-450); RED BLOOD COUNT 3.57 10^6/uL (4.00-5.40); WHITE BLOOD COUNT 9.4 10^3/uL (4.0-10.0)
[2023-12-24 16:53] LABS: CK-MB VALUE MASS < 1.0 NG/ML (<3.6); ETHYL ALCOHOL (ETHANOL) < 0.003 % (0.000-0.010)
[2023-12-24 16:55] LABS: ALBUMIN 3.2 G/DL (3.2-5.2); ALKALINE PHOSPHATASE 77 U/L (46-116); ALT/SGPT 15 U/L (7.0-40); AST/SGOT 12 U/L (<34); BILIRUBIN,DIRECT < 0.1 MG/DL (<0.4); BILIRUBIN,TOTAL 0.2 MG/DL (0.3-1.2); BLOOD UREA NITROGEN 15 MG/DL (9-23); CARBON DIOXIDE LEVEL 29 MMOL/L (20-31); CHLORIDE LEVEL 109 MMOL/L (98-107); CPK CREATINE PHOSPHOKINASE 40 U/L (34-145); CREATININE FOR GFR 0.94 MG/DL (0.55-1.30); GLOMERULAR FILTRATION RATE > 60.0 (>39); GLUCOSE, FASTING 100 MG/DL (74-106); POTASSIUM SERUM 4.1 MMOL/L (3.5-5.1); SALICYLATE LEVEL < 3.0 MG/DL (<30); SODIUM LEVEL 139 MMOL/L (136-145); TOTAL PROTEIN 7.1 G/DL (5.7-8.2)
[2023-12-24 16:57] LABS: THYROID STIMULATING HORMONE 3.448 uIU/ML (0.55-4.78)
[2023-12-24] MEDS ORDERED: ISOVUE-370 76% 100ML VIAL As Ordered ONE (17:42)
[2023-12-24 17:55] LABS: ABG BASE EXCESS -1.2 (-2.0-2.0); ABG HCO3 23.8 MMOL/L (22.0-26.0); ABG O2 SATURATION 98.3 % (95.0-99.0); ABG PARTIAL PRESSURE CO2 41.2 mmHg (35.0-45.0); ABG PARTIAL PRESSURE O2 121.3 mmHg (75.0-100.0); ABG STANDARD HCO3 23.5 MMOL/L. (22.0-26.0); ABG TOTAL CO2 25.1 MMOL/L (23.0-31.0)
[2023-12-24 18:03] LABS: CK-MB VALUE MASS < 1.0 NG/ML (<3.6)
[2023-12-24 18:11] LABS: CPK CREATINE PHOSPHOKINASE 38 U/L (34-145); MB/CK RELATIVE INDEX 2.63 (< OR =4)
[2023-12-24 18:54] LABS: AMPHETAMINES LEVEL URINE NEGATIVE (NEGATIVE); BARBITURATES URINE NEGATIVE (NEGATIVE); BENZODIAZEPINES URINE NEGATIVE (NEGATIVE); CANNABINOIDS URINE NEGATIVE (NEGATIVE); COCAINE METABOLITE URINE NEGATIVE (NEGATIVE); METHADONE URINE NEGATIVE (NEGATIVE); OPIATES URINE NEGATIVE (NEGATIVE); PHENCYCLIDINE URINE NEGATIVE (NEGATIVE)
[2023-12-24] MEDS: NS 1,000 ML IV ONE (19:15)
[2023-12-24] MEDS ORDERED: SULF400T14 PO (20:03)
[2023-12-24] MEDS ORDERED: QUET1TAB17 PO (20:03)
[2023-12-24] MEDS ORDERED: FLUC-1 PO (20:03)
[2023-12-24] MEDS ORDERED: HOME MED LIST COMPLETE! XX SCH (20:05)
[2023-12-24] MEDS ORDERED: ALBUTEROL 90 MCG/ACT 8GM HFA INHALER INH PRN (21:05)
[2023-12-24] MEDS: ADVAIR HFA 115/21MCG INHALER INH SCH (21:05)
[2023-12-24] MEDS: CALCIUM CARBONATE 500 MG CHEW U/D PO PRN (22:42)
[2023-12-24] MEDS: APIXABAN 5 MG TAB (ELIQUIS) PO SCH (22:42)
[2023-12-24] MEDS: QUEtiapine FUMARATE 25 MG TAB PO SCH (22:42)
[2023-12-24] MEDS: ESCITALOPRAM OXALATE 5MG TABLET (LEXAPRO) PO SCH (22:42)
[2023-12-24] MEDS: OMEPRAZOLE 20MG CAP PO SCH (22:42)
[2023-12-24] MEDS: ATORVASTATIN 20 MG TAB PO SCH (22:42)
[2023-12-25] MEDS: NS 1,000 ML IV SCH (01:00)
[2023-12-25 07:49] LABS: BASO % 0.2 % (0.0-1.0); EOS # 0.3 10^3/uL (0.0-0.5); EOS % 2.5 % (0.0-3.0); HEMATOCRIT 32.9 % (36.0-47.0); HEMOGLOBIN 10.6 g/dl (12.0-15.5); LYMPH % 7.6 % (24.0-44.0); MEAN CORPUSCULAR HEMOGLOBIN 29.8 pg (27.0-33.0); MEAN CORPUSCULAR HGB CONC 32.2 g/dl (32.0-36.5); MEAN CORPUSCULAR VOLUME 92.4 fl (80.0-96.0); MONO % 7.3 % (2.0-8.0); NEUTROPHILS # 11.2 10^3/uL (1.5-8.5); PLATELET COUNT, AUTOMATED 236 10^3/uL (150-450); RED BLOOD COUNT 3.56 10^6/uL (4.00-5.40); WHITE BLOOD COUNT 13.6 10^3/uL (4.0-10.0)
[2023-12-25 08:15] LABS: BLOOD UREA NITROGEN 11 MG/DL (9-23); CALCIUM LEVEL 9.2 MG/DL (8.3-10.6); CARBON DIOXIDE LEVEL 28 MMOL/L (20-31); CHLORIDE LEVEL 107 MMOL/L (98-107); CREATININE FOR GFR 0.69 MG/DL (0.55-1.30); GLOMERULAR FILTRATION RATE > 60.0 (>39); GLUCOSE, FASTING 99 MG/DL (74-106); MAGNESIUM LEVEL 1.9 MG/DL (1.8-2.4); SODIUM LEVEL 138 MMOL/L (136-145)
[2023-12-25] MEDS: amLODIPine 5 MG TAB PO SCH (09:11)
[2023-12-25 11:05] LABS: PROCALCITONIN <0.04 ng/ml
[2023-12-25] MEDS: DONEPEZIL 5 MG TAB PO SCH (11:33)
[2023-12-25] MEDS: IRBESARTAN 150MG TAB PO SCH (11:34)
[2023-12-25] MEDS: FIDAXOMICIN 200 MG TAB (DIFICID) PO SCH (13:32)
[2023-12-25 16:42] VITALS: BP 119/63; TEMP 97.3; O2SAT 98
[2023-12-25 20:00] VITALS: BP 109/53; TEMP 97.3; O2SAT 95
[2023-12-26 04:00] VITALS: BP 104/52; TEMP 97.2; O2SAT 94
[2023-12-26 05:52] LABS: BASO % 0.5 % (0.0-1.0); EOS # 0.3 10^3/uL (0.0-0.5); HEMATOCRIT 31.6 % (36.0-47.0); HEMOGLOBIN 10.4 g/dl (12.0-15.5); LYMPH # 1.3 10^3/uL (1.5-5.0); LYMPH % 15.4 % (24.0-44.0); MEAN CORPUSCULAR HEMOGLOBIN 29.5 pg (27.0-33.0); MEAN CORPUSCULAR HGB CONC 32.9 g/dl (32.0-36.5); MEAN CORPUSCULAR VOLUME 89.5 fl (80.0-96.0); MONO % 11.1 % (2.0-8.0); NEUTROPHILS # 5.9 10^3/uL (1.5-8.5); NEUTROPHILS % 68.8 % (36.0-66.0); PLATELET COUNT, AUTOMATED 209 10^3/uL (150-450); RED BLOOD COUNT 3.53 10^6/uL (4.00-5.40); WHITE BLOOD COUNT 8.6 10^3/uL (4.0-10.0)
[2023-12-26 06:10] LABS: BLOOD UREA NITROGEN 8 MG/DL (9-23); CALCIUM LEVEL 9.1 MG/DL (8.3-10.6); CARBON DIOXIDE LEVEL 27 MMOL/L (20-31); CHLORIDE LEVEL 109 MMOL/L (98-107); GLOMERULAR FILTRATION RATE > 60.0 (>39); GLUCOSE, FASTING 92 MG/DL (74-106); MAGNESIUM LEVEL 1.8 MG/DL (1.8-2.4); POTASSIUM SERUM 3.8 MMOL/L (3.5-5.1); SODIUM LEVEL 140 MMOL/L (136-145)
[2023-12-26 12:22] VITALS: BP 117/57; TEMP 97.2; O2SAT 96
[2023-12-26] MEDS: ACETAMINOPHEN 325 MG TAB PO PRN (17:50)
[2023-12-26] MEDS: PREGABALIN 100 MG CAP (LYRICA) PO SCH (19:58)
[2023-12-27 04:00] VITALS: BP 112/64; TEMP 97.3; O2SAT 94
[2023-12-27] MEDS: PREGABALIN 50 MG CAP (LYRICA) PO SCH (09:08)
[2023-12-28 04:30] VITALS: BP 126/66; TEMP 97.2; O2SAT 95
[2023-12-30] MEDS: NYSTATIN 100,000 UNITS/GM TOPICAL PWD 15GM TOP PRN (00:03)
[2023-12-30 01:46] VITALS: O2SAT 94
[2023-12-30 06:22] VITALS: BP 129/67; TEMP 97; O2SAT 93
[2023-12-31 02:16] VITALS: O2SAT 93
[2023-12-31 06:24] VITALS: BP 149/78; TEMP 96.8; O2SAT 96
[2023-12-31 09:48] VITALS: BP 164/80
[2023-12-31] MEDS: MORPHINE 10MG/0.5ML ORAL CONCENTRATE SOLUTION U/D SL PRN (20:06)
[2023-12-31] MEDS ORDERED: KETOROLAC 30 MG/ML 1ML VIAL IV ONE (20:50)
[2023-12-31] MEDS: DICYCLOMINE 10 MG CAP PO ONE (21:15)
[2023-12-31] MEDS: LORazepam 1 MG TAB PO PRN (21:15)
[2024-01-01] MEDS: DICYCLOMINE 10 MG CAP PO PRN (18:19)
[2024-01-03] MEDS: MORPHINE SULFATE ORAL SOLN 10 MG/5 ML UD PO ONE (20:12)
[2024-01-04] MEDS: ONDANSETRON 4MG ORAL DISINTEGRATING TAB PO PRN (14:23)
[2024-01-06] MEDS: RAMELTEON 8 MG TAB (ROZEREM) PO ONE (23:40)
[2024-01-07] MEDS: QUEtiapine FUMARATE 25 MG TAB PO SCH (22:00)
[2024-01-13 20:53] VITALS: BP 149/78; TEMP 96.8; O2SAT 96
[2024-01-14] MEDS ORDERED: HYOS125TA PO (08:59)
[2024-01-14] MEDS ORDERED: MORP1SOL5 PO (08:59)
[2024-01-14] MEDS ORDERED: ATIV1TAB10 PO (08:59)
== END 2024-01-14 13:00 ==
LOC: EDBD 14:52 → M ED 14:52 → M ED INP 14:53 → M MSPAV 12-25 16:42
PROVIDERS: ADMIT Student in an Organized Health Care Education/Training Program; ATTEND Student in an Organized Health Care Education/Training Program
DX: G93.41 Metabolic encephalopathy (principal); R19.7 Diarrhea, unspecified; B96.89 Other specified bacterial agents as the cause of diseases classified elsewhere; G30.9 Alzheimer's disease, unspecified; F02.80 Dementia in other diseases classified elsewhere, unspecified severity, without behavioral disturbance, psychotic disturbance, mood disturbance, and anxiety; E86.0 Dehydration; A49.8 Other bacterial infections of unspecified site; Z86.711 Personal history of pulmonary embolism; K21.9 Gastro-esophageal reflux disease without esophagitis; K22.70 Barrett's esophagus without dysplasia; E78.5 Hyperlipidemia, unspecified; I10 Essential (primary) hypertension; J45.909 Unspecified asthma, uncomplicated; G47.33 Obstructive sleep apnea (adult) (pediatric); Z87.440 Personal history of urinary (tract) infections; R15.9 Full incontinence of feces; R32 Unspecified urinary incontinence; F41.9 Anxiety disorder, unspecified; F32.A Depression, unspecified; Z96.641 Presence of right artificial hip joint; Z98.41 Cataract extraction status, right eye; Z98.42 Cataract extraction status, left eye; Z98.890 Other specified postprocedural states; Z82.49 Family history of ischemic heart disease and other diseases of the circulatory system; Z84.89 Family history of other specified conditions; Z82.3 Family history of stroke; Z88.5 Allergy status to narcotic agent; Z79.899 Other long term (current) drug therapy; Z79.01 Long term (current) use of anticoagulants; Z79.51 Long term (current) use of inhaled steroids; Z79.2 Long term (current) use of antibiotics; Z66 Do not resuscitate; Z51.5 Encounter for palliative care
CPT/HCPCS: 36415; 36600; 70450; 71045; 71275; 74177; 80047; 80048; 80076; 80143; 80307; 81001; 82077; 82140; 82550; 82553; 82803; 83605; 83735; 84145; 84443; 84484; 85025; 87040; 87088; 87186; 87324; 87426; 87507; 93005; 93041; 94640; 94760; 96360; 96361; 97110; 97116; 97161; 97165; 97530; 97535; 99285; G0378; Q9967

== ENCOUNTER → 2024-01-24 | Outpatient (REF) | payer MEDICARE, MEDICAID ==
[~2024-01-24] MED LIST changes: +ATIV1TAB10 PO; +FLUC-1 PO; +HYOS125TA PO; +MORP1SOL5 PO; +QUET1TAB17 PO; +SULF400T14 PO
[2024-01-24 11:18] LABS: APPEARANCE, URINE CLEAR (CLEAR); BACTERIA, URINE AUTO NEGATIVE (NEGATIVE); BILIRUBIN, URINE AUTO NEGATIVE (NEGATIVE); BLOOD, URINE BLOOD NEGATIVE (NEGATIVE); COLOR, URINE YELLOW (YELLOW); GLUCOSE, URINE (UA) AUTO NEGATIVE (NEGATIVE); KETONE, URINE AUTO NEGATIVE (NEGATIVE); LEUKOCYTE ESTERASE, URINE AUTO TRACE (NEGATIVE); MUCUS, URINE SMALL (NEGATIVE); NITRITE, URINE AUTO NEGATIVE (NEGATIVE); PROTEIN, URINE AUTO 1+ mg/dL (NEGATIVE); RBC, URINE AUTO 4 /HPF (0-3); SPECIFIC GRAVITY URINE AUTO 1.024 (1.002-1.035); SQUAMOUS EPITHELIAL CELL UR AU 1 /HPF (0-6); UROBILINOGEN, URINE AUTO 0.2 mg/dL (0.0-2.0); WBC, URINE AUTO 26 /HPF (0-3)
== END ==
LOC: SKLAB4 10:50
PROVIDERS: ATTEND Internal Medicine
DX: R30.0 Dysuria (principal)

== ENCOUNTER → 2024-01-24 | Outpatient (REF) | payer MEDICARE, MEDICAID | LOC: SKLAB4 19:26 | PROVIDERS: ATTEND Nurse Practitioner Family | DX: R22.31 Localized swelling, mass and lump, right upper limb (principal); M85.841 Other specified disorders of bone density and structure, right hand; M19.041 Primary osteoarthritis, right hand ==

== ENCOUNTER → 2024-01-28 | Outpatient (REF) | payer MEDICARE, MEDICAID ==
[2024-01-28 13:34] LABS: BASO # 0.1 10^3/uL (0.0-0.2); BASO % 0.4 % (0.0-1.0); EOS # 0.1 10^3/uL (0.0-0.5); EOS % 0.6 % (0.0-3.0); HEMATOCRIT 32.7 % (36.0-47.0); HEMOGLOBIN 10.6 g/dl (12.0-15.5); LYMPH # 1.2 10^3/uL (1.5-5.0); LYMPH % 7.8 % (24.0-44.0); MEAN CORPUSCULAR HEMOGLOBIN 29.4 pg (27.0-33.0); MEAN CORPUSCULAR HGB CONC 32.4 g/dl (32.0-36.5); MEAN CORPUSCULAR VOLUME 90.6 fl (80.0-96.0); MONO # 1.2 10^3/uL (0.0-0.8); MONO % 7.8 % (2.0-8.0); NEUTROPHILS # 13.1 10^3/uL (1.5-8.5); PLATELET COUNT, AUTOMATED 332 10^3/uL (150-450); RED BLOOD COUNT 3.61 10^6/uL (4.00-5.40); WHITE BLOOD COUNT 15.7 10^3/uL (4.0-10.0)
[2024-01-28 14:06] LABS: ALKALINE PHOSPHATASE 68 U/L (35-104); ALT/SGPT 20 U/L (7.0-40); AST/SGOT 20 U/L (<34); BILIRUBIN,TOTAL 0.3 MG/DL (0.3-1.2); BLOOD UREA NITROGEN 25 MG/DL (9-23); CALCIUM LEVEL 9.4 MG/DL (8.3-10.6); CARBON DIOXIDE LEVEL 28 MMOL/L (20-31); CHLORIDE LEVEL 103 MMOL/L (98-107); CREATININE FOR GFR 0.93 MG/DL (0.55-1.30); GLOMERULAR FILTRATION RATE > 60.0 (>39); GLUCOSE, FASTING 125 MG/DL (74-106); POTASSIUM SERUM 4.2 MMOL/L (3.5-5.1); SODIUM LEVEL 138 MMOL/L (136-145); TOTAL PROTEIN 7.1 G/DL (5.7-8.2)
== END ==
LOC: SKLAB3 11:55
PROVIDERS: ATTEND Internal Medicine
DX: R19.7 Diarrhea, unspecified (principal)

== ENCOUNTER → 2024-03-03 | Outpatient (REF) | payer MEDICARE, MEDICAID ==
[2024-03-03 09:47] LABS: BASO % 0.4 % (0.0-1.0); EOS # 0.3 10^3/uL (0.0-0.5); EOS % 3.6 % (0.0-3.0); HEMATOCRIT 31.9 % (36.0-47.0); HEMOGLOBIN 10.1 g/dl (12.0-15.5); LYMPH # 1.4 10^3/uL (1.5-5.0); LYMPH % 15.4 % (24.0-44.0); MEAN CORPUSCULAR HEMOGLOBIN 28.8 pg (27.0-33.0); MEAN CORPUSCULAR HGB CONC 31.7 g/dl (32.0-36.5); MEAN CORPUSCULAR VOLUME 90.9 fl (80.0-96.0); MONO # 0.8 10^3/uL (0.0-0.8); MONO % 8.8 % (2.0-8.0); NEUTROPHILS # 6.4 10^3/uL (1.5-8.5); NEUTROPHILS % 71.4 % (36.0-66.0); PLATELET COUNT, AUTOMATED 293 10^3/uL (150-450); RED BLOOD COUNT 3.51 10^6/uL (4.00-5.40)
[2024-03-03 09:49] LABS: ALBUMIN 2.9 G/DL (3.2-5.2); ALKALINE PHOSPHATASE 62 U/L (35-104); ALT/SGPT < 9 U/L (7.0-40); AST/SGOT 10 U/L (<34); BILIRUBIN,TOTAL 0.3 MG/DL (0.3-1.2); BLOOD UREA NITROGEN 17 MG/DL (9-23); CALCIUM LEVEL 9.4 MG/DL (8.3-10.6); CARBON DIOXIDE LEVEL 32 MMOL/L (20-31); CHLORIDE LEVEL 103 MMOL/L (98-107); CREATININE FOR GFR 0.68 MG/DL (0.55-1.30); GLOMERULAR FILTRATION RATE > 60.0 (>39); GLUCOSE, FASTING 96 MG/DL (74-106); POTASSIUM SERUM 3.6 MMOL/L (3.5-5.1); SODIUM LEVEL 139 MMOL/L (136-145)
== END ==
LOC: SKLAB3 08:36
PROVIDERS: ATTEND Internal Medicine
DX: R09.89 Other specified symptoms and signs involving the circulatory and respiratory systems (principal)